=== PATIENT | female | born 1965 | race Caucasian/White ===

== ENCOUNTER 2020-10-24 09:01 | Outpatient (REF) | payer OTHER, SELFPAY ==
--- NOTE | ~2020-10-24 | XR_ITS ---
EXAMINATION: XR ELBOW, LEFT CLINICAL INFORMATION: Trauma COMPARISON: None TECHNIQUE: AP, lateral, and oblique views of the left elbow. FINDINGS: The bones and soft tissues are normal. No fracture or joint effusion. Alignment is anatomic. Joint spaces are maintained. XR/XR elbow LT min 3V IMPRESSION: Normal left elbow.
== END 2020-10-24 09:02 | disposition home or self-care (01) ==
LOC: HO.HMGCX 09:01
PROVIDERS: PCP Physician Assistant Medical; Visit Provider Nurse Practitioner Family
DX: S59.909A Unspecified injury of unspecified elbow, initial encounter (principal)
CPT/HCPCS: 73080

== ENCOUNTER 2021-04-18 09:59 | Emergency (ER) | payer OTHER, SELFPAY ==
--- NOTE | ~2021-04-18 | US_ITS ---
EXAMINATION: US VENOUS WITH DOPPLER UPPER EXTREMITY, RIGHT CLINICAL INFORMATION: Symptoms right upper extremity, right, warmth, painful. Assess for occult DVT. COMPARISON: None TECHNIQUE: Ultrasound of the upper extremity is performed using compression sonography and color and pulse Doppler flow with assessment of augmentation of flow. There is also imaging and Doppler assessment of the jugular and subclavian veins. Spectral analysis with color-flow imaging is performed. FINDINGS: Respiratory variation, normal compression, and augmented flow are noted throughout the upper extremity including the axillary, brachial, cubital, and radial and ulnar veins. There is normal flow in the internal jugular and subclavian veins. There is no visible deep or superficial thrombophlebitis. US/US venous duplex UE RT IMPRESSION: No DVT demonstrated in the right upper extremity.
[2021-04-18 10:09] VITALS: BP 127/59; PULSE 64; RESP 19; TEMP 36.6; O2SAT 100
--- NOTE | 2021-04-18 10:45 | ED.EXTPRO ---
HPI - Extremity Problem General Chief complaint: Extremity Injury, Upper Stated complaint: Possible blood clot Time Seen by Provider: 04/18/21 10:21 Source: patient Mode of arrival: ambulatory Limitations: no limitations History of Present Illness HPI Narrative: 55 y/o female presenting with RUE pain and ecchymosis that she noticed this morning. Three days ago she used her arm for several hours to paint and stain her deck at home. She was slightly sore after but nothing out of the ordinary. Later that night she reports her right upper arm under by her underarm was red and burning. It resolved by morning. Today she noticed some yellowing bruising to her right upper arm and tenderness. No current redness, warmth or swelling. No numbness, tingling or weakness. MD Complaint: extremity pain Onset (ago): day(s) Pain Consistency: intermittent Location: right and upper extremity Severity scale (1-10): 3 Quality: aching Radiation: none Relieving factors: immobilization Exacerbating factors: palpation Associated symptoms: denies other symptoms Related Data Home Medications Medication Instructions Recorded Confirmed colestipol 1 gram tablet g PO 10/24/20 hydrochlorothiazide 12.5 mg tablet 12.5 mg PO DAILY 10/24/20 levothyroxine 100 mcg tablet 100 mcg PO DAILY 10/24/20 omeprazole 40 mg capsule,delayed 40 mg PO DAILY 10/24/20 release propranolol 20 mg tablet mg PO 10/24/20 Previous Rx's Medication Instructions Recorded prednisone 20 mg tablet 20 mg PO DAILY 9 Days #18 tab 10/24/20 Allergies Allergy/AdvReac Type Severity Reaction Status Date / Time Unable to Assess Allergy Verified 04/18/21 10:35 Review of Systems Constitutional: Constitutional: Denies chills and Denies fever(s) Cardiovascular: Cardiovascular: Denies chest pain, Denies chest pain with activity, Denies lightheadedness and Denies dyspnea Respiratory: Respiratory: Denies pain on inspiration and Denies dyspnea Gastrointestinal: Gastrointestinal: Denies nausea and Denies vomiting Musculoskeletal: Musculoskeletal: Denies deformity, Denies arthralgias, Denies joint swelling, Denies muscle weakness, Denies numbness and Denies tingling Neurologic: Denies numbness and Denies tingling Hematologic/Lymphatic: Hematologic/Lymphatic: Denies easy bleeding and Denies easy bruising PMFSH Past Medical History Attestation statement: The following information was validated with the patient. Medical History Arthritis Fibromyalgia HTN (hypertension) Hypothyroid Social History Social History Advance Directives: No Advance Directives Information Provided: Yes Patient : No Physical Exam Vital Signs: Vital Signs: Last Vital Signs Temp 98 F 04/18/21 10:09 Pulse 64 04/18/21 10:09 Resp 19 04/18/21 10:09 BP 127/59 L 04/18/21 10:09 Pulse Ox 100 04/18/21 10:09 Body Mass Index 30.0 Appearance: Alert. Oriented X3. No acute distress. HEENT: normal inspection CVS: Normal heart rate and rhythm. Pulses normal. Respiratory: No respiratory distress. Skin: Skin warm and dry. Normal skin color. Normal skin turgor. No rashes. Extremities: right upper arm with medial aspect with slight bruising and tenderness proximally, no axillary LAD. no erythema, swelling, warmth of arm. Normal ROM of right shoulder and elbow. Normal 5/5 strength of upper extremities, equal and symmetrical Neuro: Oriented X 3. No motor deficit. No sensory deficit. Course Course Course Narrative: 55 y/o female presenting with right upper extremity bruising and tenderness after staining her deck 4 days ago. Reported transient swelling and burning now resolved. She is concerned for blood clot so U/S is ordered to rule this out. Her strength is equal and symmetrical doubt bicep tendon rupture. Reevaluation(s) Reevaluation #1: US is negative for DVT. Exam is reassuring without deficit or other skin changes other than some bruising. She is stable for discharge home with supportive care and outpatient follow up. Discharge Plan Discharge Clinical Impression: Upper extremity pain Qualifiers: Laterality: right Qualified Code(s): M79.601 - Pain in right arm Patient Disposition: Home, Self-Care Instructions: Arm Pain (ED) Additional Instructions: Your ultrasound did not show any blood clot. Rest your arm. Elevate when possible. Take Motrin and/or Tylenol as needed for pain. Follow up with your doctor as needed. If you develop increased pain, redness, swelling or any other concerning symptoms come back to the ER for further evaluation. Prescriptions: No Action levothyroxine 100 mcg tablet 100 mcg PO DAILY RF: 0 omeprazole 40 mg capsule,delayed release(DR/EC) 40 mg PO DAILY RF: 0 propranolol 20 mg tablet PO RF: 0 hydrochlorothiazide 12.5 mg tablet 12.5 mg PO DAILY RF: 0 colestipol 1 gram tablet PO RF: 0 prednisone 20 mg tablet 20 mg PO DAILY 9 Days Qty: 18 RF: 0
== END 2021-04-18 12:38 | disposition home or self-care (01) ==
PROVIDERS: Emergency Provider Emergency Medicine; PCP Physician Assistant Medical
DX: M79.601 Pain in right arm (principal); R60.0 Localized edema; I10 Essential (primary) hypertension; Z79.899 Other long term (current) drug therapy
CPT/HCPCS: 93971; 99283

== ENCOUNTER 2022-04-07 12:12 | Outpatient (REF) | payer OTHER, SELFPAY ==
[2022-04-07 12:40] LABS: Binax Now Covid-19 Ag Positive (Negative)
[2022-04-07 12:41] LABS: Binax Internal Control QC Valid; Binax Performed by: HO.BONILM
== END 2022-04-07 12:13 | disposition home or self-care (01) ==
LOC: HO.HMGCLDS 12:12
PROVIDERS: PCP Physician Assistant Medical; Visit Provider Physician Assistant
DX: Z20.822 Contact with and (suspected) exposure to COVID-19 (principal); J06.9 Acute upper respiratory infection, unspecified
CPT/HCPCS: 87811; C9803

== ENCOUNTER 2022-04-13 08:25 | Emergency (ER) | payer OTHER, SELFPAY ==
[2022-04-13 08:58] VITALS: BP 125/68; PULSE 67; RESP 18; TEMP 36.5; O2SAT 98; BMI 27.4
--- NOTE | 2022-04-13 09:51 | ED_ITS ---
HPI - Nausea/Vomiting/Diarrhea General Chief complaint: Nausea/Vomiting/Diarrhea Stated complaint: Covid+/Vomiting Time Seen by Provider: 04/13/22 09:29 Source: patient Mode of arrival: ambulatory Limitations: no limitations History of Present Illness HPI Narrative: 56-year-old female with a history of arthritis, fibromyalgia, HTN, hypothyroidism who presents to the ER for evaluation of almost a week and a half of vomiting and diarrhea in the setting of being positive for COVID-19. She states she was seen in urgent care where she was prescribed steroids, nausea medication and amoxicillin. She was also given prescription for Paxlovid which she completed. She reports she continues to vomit about 2 times per day, no relief from zofran but overall vomiting has improved. She also reports about 5 episodes of nonbloody stool each day. She feels weak and like she is going to pass out. She has been drinking pedialyte but her intake of food has been minimal. MD elicited complaint: vomiting and diarrhea Onset (ago): day(s) (10) Description of vomiting: food contents and bilious Description of diarrhea: watery Associated nausea: Yes Associated abdominal pain: No Location of pain: none Pain consistency: intermittent Severity: moderate Exacerbating factors: eating Relieving factors: none Associated symptoms: headaches, loss of appetite, malaise, nausea/vomiting and weakness Related Data Home Medications Medication Instructions Recorded Confirmed colestipol 1 gram tablet g PO 10/24/20 hydrochlorothiazide 12.5 mg tablet 12.5 mg PO DAILY 10/24/20 levothyroxine 100 mcg tablet 100 mcg PO DAILY 10/24/20 omeprazole 40 mg capsule,delayed 40 mg PO DAILY 10/24/20 release propranolol 20 mg tablet mg PO 10/24/20 Previous Rx's Medication Instructions Recorded prednisone 20 mg tablet 20 mg PO DAILY 9 days #18 tabs 10/24/20 albuterol sulfate 90 mcg/actuation 1 inh inhalation QID PRN shortness 01/21/22 aerosol inhaler of breath or wheezing #6.7 grams azithromycin 250 mg tablet See Rx Instructions PO .COMPLEX #6 01/21/22 tabs amoxicillin 875 mg-potassium 1 tab PO BID 10 days #20 tabs 04/07/22 clavulanate 125 mg tablet ondansetron 4 mg disintegrating 4 mg PO Q8-12H PRN nausea and 04/07/22 tablet vomiting #14 tabs prednisone 20 mg tablet 40 mg PO DAILY 5 days #10 tabs 04/07/22 loperamide 2 mg capsule (Imodium 2 mg PO Q6H PRN loose stool #14 04/13/22 A-D) caps prochlorperazine maleate 10 mg 10 mg PO Q8H PRN nausea and 04/13/22 tablet (Compazine) vomiting #10 tabs Allergies Allergy/AdvReac Type Severity Reaction Status Date / Time bees Allergy Mild Swelling Uncoded 04/07/22 11:54 Review of Systems Review of Systems: Constitutional: No Fever, + Chills ENT/Mouth: No sore throat, No Rhinorrhea, No Swallowing Difficulty Cardiovascular: No Chest Pain, No SOB, No Orthopnea, No Edema Respiratory: No Cough, No Sputum, No Wheezing, No dyspnea Gastrointestinal: +Nausea, +Vomiting, + Diarrhea, No abdominal Pain, No Hematochezia, No Melena Genitourinary: No Dysuria, No Urinary Frequency, No Hematuria Musculoskeletal: No joint pain, No Myalgias Skin: No Skin Lesions, No rash Neuro: + Weakness, No Numbness, No Dizziness, + Headache Psych: + Anxiety/Panic, No Depression Heme/Lymph: No Bruising, No Lymphadenopathy Endocrine: No Polyuria, No Polydipsia Gastrointestinal: Gastrointestinal: Reports nausea PMFSH Past Medical History Medical History Arthritis Fibromyalgia HTN (hypertension) Hypothyroid Social History Social History Patient Tobacco Use Status: Never used Tobacco Use of substances other than those prescribed or required for medical reasons: No Advance Directives: Yes Advance Directives Information Provided: Yes Advance Directives on File: No Physical Exam Vital Signs: Vital Signs: Last Vital Signs Temp 98.0 F 04/13/22 10:07 Pulse 58 04/13/22 10:07 Resp 18 04/13/22 10:07 BP 151/72 H 04/13/22 10:07 Pulse Ox 98 04/13/22 10:07 O2 Del Method 04/13/22 10:07 BMI result Body Mass Index 27.4 Appearance: Alert. Oriented X3. No acute distress. Eyes: Pupils equal, round and reactive to light. ENT: Pharynx normal. Moist mucus membranes Neck: Normal inspection. Neck supple. CVS: Normal heart rate and rhythm. Pulses normal. Respiratory: No respiratory distress. Breath sounds normal. Abdomen: Soft and nontender. +BS x4 Skin: Skin warm and dry. Normal skin color. Normal skin turgor. No rashes. Extremities: No lower extremity edema. Neuro: Oriented X 3. No motor deficit. No sensory deficit. Course Course Course Narrative: 56-year-old female with COVID-19 on 04/07 Presenting to the ER with persistent nausea, vomiting, diarrhea for the last 10 days. No abdominal pain. No respi ratory complaints. Will check basic lab workup to rule out metabolic derangements. IV fluids have been ordered as well as an antiemetic. Will reassess. Dispo pending result in improvement Reevaluation(s) Reevaluation #1: results show sodium 127, suspect hypovolemic hyponatremia. Patient getting 2 L of fluids now. No vomiting or diarrhea here. Her magnesium and potassium are within normal limits, as is her renal function Reevaluation #2: sodium improved to 131. She is tolerating p.o.. At this time patient is stable for discharge home. We discussed her results and need to continue to oral hydration at home with Pedialyte, Gatorade or Powerade. She has been tolerating p.o. here both crackers and nino brice. No vomiting. Will send home with a different antiemetic per her request. Will also start antidiarrheal. Stable for discharge home with outpatient follow-up and supportive care. MDM - Nausea/Vomiting/Diarrhea Lab Data Result diagrams: 04/13/22 10:05 04/13/22 12:24 Labs: Lab Results 04/13/22 04/13/22 04/13/22 Range/Units 10:05 10:05 10:05 WBC 9.6 (4.8-10.8) X10*3/uL RBC 5.23 (4.20-5.50) X10*6/uL Hgb 15.1 (12.0-16.0) g/dl Hct 43.4 (37.0-47.0) % MCV 83.0 (80.0-98.0) fL MCH 28.9 (27.0-33.0) pg MCHC 34.8 (31.0-35.0) g/dl RDW 12.2 (11.0-16.0) % Plt Count 324 (160-400) X10*3/uL MPV 10.4 (9.4-12.3) fL Immature Gran % (Auto) 0.7 H (0.0-0.4) % Neut % (Auto) 67.4 (45-73) % Lymph % (Auto) 23.3 (20-40) % [place] % (Auto) 7.7 (2-11) % Eos % (Auto) 0.5 (0-4) % Baso % (Auto) 0.4 (0-2) % Lymph # (Auto) 2.2 (1.2-4.9) X10*3/uL [place] # (Auto) 0.7 (0.1-1.2) X10*3/uL Eos # (Auto) 0.1 (0.0-0.4) X10*3/uL Baso # (Auto) 0.0 (0.0-0.2) X10*3/uL Abs Immat Gran (auto) 0.07 H (0.00-0.03) X10*3/uL Absolute Neuts (auto) 6.4 (2.0-8.3) x10*3/uL Absolute Nucleated RBC 0.000 (0.0-0.012) X10*3/uL Nucleated RBC % (auto) 0.0 (0.0-0.2) /100WBC Sodium 127 L (135-145) mmol/L Potassium 3.8 (3.3-5.1) mmol/L Chloride 86 L (96-108) mmol/L Carbon Dioxide 29 (22-29) mmol/L Anion Gap 16 (12-20) BUN 14 (9-16) mg/dL Creatinine 0.84 (0.5-1.4) mg/dL Estim Creat Clear Calc 72.1 Estimated GFR > 60 Random Glucose 109 (60-115) mg/dL Osmolality 264 L (281-305) mosm/kg Calcium 9.7 (8.4-10.2) mg/dL Magnesium 1.7 (1.6-2.6) mg/dL Total Bilirubin 0.7 (0.0-1.0) mg/dL Direct Bilirubin 0.2 (0.0-0.5) mg/dL AST 34 H (5-31) U/L ALT 78 H (0-31) U/L Alkaline Phosphatase 81 (39-117) U/L Total Protein 7.3 (6.5-8.0) g/dL Albumin 4.6 (3.5-5.0) g/dL 04/13/22 Range/Units 12:24 WBC (4.8-10.8) X10*3/uL RBC (4.20-5.50) X10*6/uL Hgb (12.0-16.0) g/dl Hct (37.0-47.0) % MCV (80.0-98.0) fL MCH (27.0-33.0) pg MCHC (31.0-35.0) g/dl RDW (11.0-16.0) % Plt Count (160-400) X10*3/uL MPV (9.4-12.3) fL Immature Gran % (Auto) (0.0-0.4) % Neut % (Auto) (45-73) % Lymph % (Auto) (20-40) % [place] % (Auto) (2-11) % Eos % (Auto) (0-4) % Baso % (Auto) (0-2) % Lymph # (Auto) (1.2-4.9) X10*3/uL [place] # (Auto) (0.1-1.2) X10*3/uL Eos # (Auto) (0.0-0.4) X10*3/uL Baso # (Auto) (0.0-0.2) X10*3/uL Abs Immat Gran (auto) (0.00-0.03) X10*3/uL Absolute Neuts (auto) (2.0-8.3) x10*3/uL Absolute Nucleated RBC (0.0-0.012) X10*3/uL Nucleated RBC % (auto) (0.0-0.2) /100WBC Sodium 131 L (135-145) mmol/L Potassium (3.3-5.1) mmol/L Chloride (96-108) mmol/L Carbon Dioxide (22-29) mmol/L Anion Gap (12-20) BUN (9-16) mg/dL Creatinine (0.5-1.4) mg/dL Estim Creat Clear Calc Estimated GFR Random Glucose (60-115) mg/dL Osmolality (281-305) mosm/kg Calcium (8.4-10.2) mg/dL Magnesium (1.6-2.6) mg/dL Total Bilirubin (0.0-1.0) mg/dL Direct Bilirubin (0.0-0.5) mg/dL AST (5-31) U/L ALT (0-31) U/L Alkaline Phosphatase (39-117) U/L Total Protein (6.5-8.0) g/dL Albumin (3.5-5.0) g/dL Discharge Plan Discharge Clinical Impression: Acute hyponatremia, Nausea, vomiting and diarrhea Patient Disposition: Home, Self-Care Instructions: Covid-19 Viral Syndrome and Novel Coronavirus (ED) Hey/Ath, Hyp onatremia (ED) Additional Instructions: Her lab workup today showed a low sodium. This improved with IV fluids. Recommend staying hydrated with oral Gatorade, Powerade or Pedialyte. Recommend chicken noodle soup, this will help bring up your sodium. Recommend getting your labs rechecked this week. Take the prescribed medications as needed for your symptoms. If you develop new or worsening symptoms call 911 or come back to the ER for further evaluation. Prescriptions: New prochlorperazine maleate [Compazine] 10 mg tablet 10 mg PO Q8H PRN (Reason: nausea and vomiting) Qty: 10 0RF loperamide [Imodium A-D] 2 mg capsule 2 mg PO Q6H PRN (Reason: loose stool) Qty: 14 0RF No Action levothyroxine 100 mcg tablet 100 mcg PO DAILY omeprazole 40 mg capsule,delayed release(DR/EC) 40 mg PO DAILY propranolol 20 mg tablet PO hydrochlorothiazide 12.5 mg tablet 12.5 mg PO DAILY colestipol 1 gram tablet PO prednisone 20 mg tablet 20 mg PO DAILY 9 Days Qty: 18 0RF Rx Instructions: 3 tabs/60mg for 3 days 2 tabs/40mg for 3 days 1 tab/20mg for 3 days azithromycin 250 mg tablet See Rx Instructions PO .COMPLEX Qty: 6 0RF Rx Instructions: take 500 mg today (day 1), then 250 mg for 4 days (days 2-5) PO albuterol sulfate 90 mcg/actuation HFA aerosol inhaler 1 inh inhalation QID PRN (Reason: shortness of breath or wheezing) Qty: 6.7 1RF amoxicillin-pot clavulanate 875-125 mg tablet 1 tab PO BID 10 Days Qty: 20 0RF prednisone 20 mg tablet 40 mg PO DAILY 5 Days Qty: 10 0RF ondansetron 4 mg tablet,disintegrating 4 mg PO Q8-12H PRN (Reason: nausea and vomiting) Qty: 14 0RF Referrals: Wilian Tsang PA [Primary Care Provider] - ( Hypovolemic hyponatremia, GI losses from COVID) Stand Alone Forms: Work/School Release
[2022-04-13 10:07] VITALS: BP 151/72; PULSE 58; RESP 18; TEMP 36.7; O2SAT 98
[2022-04-13] MEDS: 0.9 % Sodium Chloride 1,000 ML 999 ML IVCONT (10:07)
[2022-04-13] MEDS: ondansetron HCL 4 MG/2 ML VIAL IVPUSH (10:07)
[2022-04-13 10:14] LABS: Basophils Percent Auto 0.4 % (0-2); Eosinophils Absolute Auto 0.1 X10*3/uL (0.0-0.4); Eosinophils Percent Auto 0.5 % (0-4); Hematocrit 43.4 % (37.0-47.0); Hemoglobin 15.1 g/dl (12.0-16.0); Imm Gran Abs Auto 0.07 X10*3/uL (0.00-0.03); Imm Gran Pct Auto 0.7 % (0.0-0.4); Lymphocytes Absolute Auto 2.2 X10*3/uL (1.2-4.9); Lymphocytes Percent Auto 23.3 % (20-40); MANUAL DIFF FLAG NO; Mean Corpuscular HGB Conc 34.8 g/dl (31.0-35.0); Mean Corpuscular Hemoglobin 28.9 pg (27.0-33.0); Mean Platelet Volume 10.4 fL (9.4-12.3); Monocytes Absolute Auto 0.7 X10*3/uL (0.1-1.2); Monocytes Percent Auto 7.7 % (2-11); Neutrophils Absolute Auto 6.4 x10*3/uL (2.0-8.3); Neutrophils Percent Auto 67.4 % (45-73); Platelet Count 324 X10*3/uL (160-400); Red Blood Count 5.23 X10*6/uL (4.20-5.50); Red Cell Distribution Width 12.2 % (11.0-16.0); White Blood Count 9.6 X10*3/uL (4.8-10.8)
[2022-04-13 10:41] LABS: Alanine Aminotransferase 78 U/L (0-31); Albumin Level 4.6 g/dL (3.5-5.0); Alkaline Phosphatase 81 U/L (39-117); Anion Gap 16 (12-20); Aspartate Amino Transferase 34 U/L (5-31); Bilirubin Direct 0.2 mg/dL (0.0-0.5); Bilirubin Total 0.7 mg/dL (0.0-1.0); Blood Urea Nitrogen 14 mg/dL (9-16); Calcium 9.7 mg/dL (8.4-10.2); Carbon Dioxide 29 mmol/L (22-29); Chloride 86 mmol/L (96-108); Creatinine Clr Calc Pharmacy 72.1; Estimated Glomerular Filt Rate > 60; Glucose Random 109 mg/dL (60-115); Magnesium 1.7 mg/dL (1.6-2.6); Potassium 3.8 mmol/L (3.3-5.1); Sodium 127 mmol/L (135-145); Total Protein 7.3 g/dL (6.5-8.0)
[2022-04-13 11:28] LABS: Osmolality, Serum 264 mosm/kg (281-305)
[2022-04-13 12:44] LABS: Sodium 131 mmol/L (135-145)
== END 2022-04-13 13:43 | disposition home or self-care (01) ==
PROVIDERS: Physician Assistant; Emergency Provider Student in an Organized Health Care Education/Training Program; PCP Physician Assistant Medical
DX: U07.1 COVID-19 (principal); E87.1 Hypo-osmolality and hyponatremia; R11.2 Nausea with vomiting, unspecified; Z79.899 Other long term (current) drug therapy
CPT/HCPCS: 36415; 80048; 80076; 83735; 83930; 84295; 85025; 96374; 99284; J2405

== ENCOUNTER 2022-04-16 14:20 | Emergency (ER) | payer OTHER, SELFPAY | END 2022-04-16 17:08 | disposition left against medical advice (07) | PROVIDERS: Emergency Provider Emergency Medicine; PCP Physician Assistant Medical | DX: U07.1 COVID-19 (principal); E86.0 Dehydration ==

== ENCOUNTER 2022-04-17 08:02 | Emergency (ER) | payer OTHER, SELFPAY ==
--- NOTE | ~2022-04-17 | CT_ITS ---
EXAMINATION: CT ABDOMEN AND PELVIS WITHOUT CONTRAST CLINICAL INFORMATION: Left lower quadrant pain, back pain. COMPARISON: None TECHNIQUE: Multidetector volumetric imaging was performed from the superior aspect of the liver through the pubic symphysis. Sagittal and coronal reformatted images were obtained on the technologist's workstation. This CT examination was performed using dose optimization techniques as appropriate, variously including the following: *Automated exposure control *Adjustment of mA and/or kV according to patient size (this includes techniques or standardized protocols for targeted exams where dose is matched to indication/reason for exam; i.e. extremities or head) *Use of iterative reconstruction technique DLP: 583 mGy-cm FINDINGS: LUNG BASES: Normal. No pulmonary consolidation or pleural effusion at either lung base. LIVER: The liver has normal size, shape, and attenuation. No evidence of liver mass. GALLBLADDER AND BILIARY TREE: Gallbladder is surgically absent. No dilated bile ducts. PANCREAS: Normal. No edema, pancreatic ductal dilatation or mass. SPLEEN: Normal. ADRENAL GLANDS: Normal. KIDNEYS AND URETERS: The kidneys have normal size and cortical thickness. No perinephric edema. No urolithiasis or hydroureteronephrosis. BLADDER: Normal. No calculi or wall thickening. BOWEL AND PERITONEUM: Stomach is unremarkable. No dilated loops of bowel. The appendix is normal. Multiple diverticula of the descending and sigmoid colon. No overt bowel wall thickening or mesenteric fat stranding. No ascites or pneumoperitoneum. ABDOMINAL WALL: No significant findings. Minimal protrusion of fat into the umbilicus. VASCULATURE: Unremarkable. LYMPH NODES: No pathologic sized lymph nodes in the abdomen or pelvis. No inguinal lymphadenopathy. PELVIC VISCERA: Uterus and adnexa are unremarkable. No pelvic free fluid. SKELETAL: No suspicious bone lesions. Mild levoscoliosis of the lumbar spine. Findings in the lumbar spine include severe facet arthropathy and grade 1 anterolisthesis at L4-5 and L5-S1. CT/CT abdomen pelvis wo con IMPRESSION: * No acute imaging abnormalities in the abdomen or pelvis. No nephrolithiasis or hydronephrosis. * Diverticulosis of the descending and sigmoid colon without diverticulitis. * No acute skeletal abnormalities. Findings in the mildly levoscoliotic lumbar spine include facet osteoarthritis and grade 1 anterolisthesis at L4-5 and L5-S1.
[2022-04-17 08:04] VITALS: BP 166/67; PULSE 63; RESP 16; TEMP 36.3; O2SAT 97; BMI 27.4
[2022-04-17 08:21] LABS: Appearance Urine CLEAR; Color Urine YELLOW; Glucose Urine UA NEG (NEG); Leukocyte Esterase Urine NEG (NEG); Nitrite Urine NEG (NEG); Specific Gravity - Urine <= 1.005 (1.005-1.025); Urine Blood NEG (NEG); Urine Ketones NEG (NEG); Urine Protein NEG (NEG-TRACE)
--- NOTE | 2022-04-17 08:22 | ED_ITS ---
HPI - Female Genitourinary General Chief complaint: General Medical Stated complaint: UTI,Dehydrated Time Seen by Provider: 04/17/22 08:20 Source: patient Mode of arrival: ambulatory Limitations: no limitations Related Data Home Medications Medication Instructions Recorded Confirmed colestipol 1 gram tablet g PO 10/24/20 hydrochlorothiazide 12.5 mg tablet 12.5 mg PO DAILY 10/24/20 levothyroxine 100 mcg tablet 100 mcg PO DAILY 10/24/20 omeprazole 40 mg capsule,delayed 40 mg PO DAILY 10/24/20 release propranolol 20 mg tablet mg PO 10/24/20 Previous Rx's Medication Instructions Recorded prednisone 20 mg tablet 20 mg PO DAILY 9 days #18 tabs 10/24/20 albuterol sulfate 90 mcg/actuation 1 inh inhalation QID PRN shortness 01/21/22 aerosol inhaler of breath or wheezing #6.7 grams azithromycin 250 mg tablet See Rx Instructions PO .COMPLEX #6 01/21/22 tabs amoxicillin 875 mg-potassium 1 tab PO BID 10 days #20 tabs 04/07/22 clavulanate 125 mg tablet ondansetron 4 mg disintegrating 4 mg PO Q8-12H PRN nausea and 04/07/22 tablet vomiting #14 tabs prednisone 20 mg tablet 40 mg PO DAILY 5 days #10 tabs 04/07/22 loperamide 2 mg capsule (Imodium 2 mg PO Q6H PRN loose stool #14 04/13/22 A-D) caps prochlorperazine maleate 10 mg 10 mg PO Q8H PRN nausea and 04/13/22 tablet (Compazine) vomiting #10 tabs Allergies Allergy/AdvReac Type Severity Reaction Status Date / Time bees Allergy Mild Swelling Uncoded 04/07/22 11:54 [facility] Past Medical History Attestation statement: The following information was validated with the patient. Medical History Arthritis Fibromyalgia HTN (hypertension) Hypothyroid Social History Social History Patient Tobacco Use Status: Never used Tobacco Physical Exam Vital Signs: Vital Signs: Last Vital Signs Temp 97.3 F 04/17/22 08:04 Pulse 63 04/17/22 08:04 Resp 16 04/17/22 08:04 BP 166/67 H 08/04/22 08:04 Pulse Ox 97 04/17/22 08:04 O2 Del Method 04/17/22 08:04 BMI result Body Mass Index 27.4 MDM - Female Genitourinary Lab Data Labs: Lab Results 04/17/22 Range/Units 08:12 Urine Color YELLOW Urine Appearance CLEAR Urine pH 6.0 (5.0-8.0) Ur Specific [place] <= 1.005 (1.005-1.025) Urine Protein NEG (NEG-TRACE) MG/DL Urine Glucose (UA) NEG (NEG) MG/DL Urine Ketones NEG (NEG) MG/DL Urine Blood NEG (NEG) Urine Nitrite NEG (NEG) Ur Leukocyte Esterase NEG (NEG) Discharge Plan Discharge Prescriptions: No Action prochlorperazine maleate [Compazine] 10 mg tablet 10 mg PO Q8H PRN (Reason: nausea and vomiting) Qty: 10 0RF loperamide [Imodium A-D] 2 mg capsule 2 mg PO Q6H PRN (Reason: loose stool) Qty: 14 0RF levothyroxine 100 mcg tablet 100 mcg PO DAILY omeprazole 40 mg capsule,delayed release(DR/EC) 40 mg PO DAILY propranolol 20 mg tablet PO hydrochlorothiazide 12.5 mg tablet 12.5 mg PO DAILY colestipol 1 gram tablet PO prednisone 20 mg tablet 20 mg PO DAILY 9 Days Qty: 18 0RF Rx Instructions: 3 tabs/60mg for 3 days 2 tabs/40mg for 3 days 1 tab/20mg for 3 days azithromycin 250 mg tablet See Rx Instructions PO .COMPLEX Qty: 6 0RF Rx Instructions: take 500 mg today (day 1), then 250 mg for 4 days (days 2-5) PO albuterol sulfate 90 mcg/actuation HFA aerosol inhaler 1 inh inhalation QID PRN (Reason: shortness of breath or wheezing) Qty: 6.7 1RF amoxicillin-pot clavulanate 875-125 mg tablet 1 tab PO BID 10 Days Qty: 20 0RF prednisone 20 mg tablet 40 mg PO DAILY 5 Days Qty: 10 0RF ondansetron 4 mg tablet,disintegrating 4 mg PO Q8-12H PRN (Reason: nausea and vomiting) Qty: 14 0RF
--- NOTE | 2022-04-17 08:31 | ED_ITS ---
HPI - Back Pain/Injury General Chief Complaint: General Medical Stated Complaint: UTI,Dehydrated Time Seen by Provider: 04/17/22 08:20 Source: patient Mode of arrival: ambulatory Limitations: no limitations History of Present Illness HPI Narrative: 56 yo female with HTN, hypothyroidism, fibromyalgia s/p COVID 04/07 completed paxlovid seen here 04/13 Na 127. At this time she notes since Thursday she has had low back pain and cannot get comfortable denies trauma. Feels it is in the low back pain and that radiates to the abdomen. Has had back issues in the past. MD elicited complaint: back pain Pertinent past history: prior back pain Onset (ago): day(s) (5) Timing: constant and progressively worsening Severity: moderate Quality: aching and throbbing Location: lumbar spine Radiation: abdomen Exacerbating factors: movement and supine positioning Relieving factors: none Context: unknown Associated symptoms: other (abdominal pain) Work related injury: No Related Data Home Medications Medication Instructions Recorded Confirmed colestipol 1 gram tablet g PO 10/24/20 hydrochlorothiazide 12.5 mg tablet 12.5 mg PO DAILY 10/24/20 levothyroxine 100 mcg tablet 100 mcg PO DAILY 10/24/20 omeprazole 40 mg capsule,delayed 40 mg PO DAILY 10/24/20 release propranolol 20 mg tablet mg PO 10/24/20 Previous Rx's Medication Instructions Recorded prednisone 20 mg tablet 20 mg PO DAILY 9 days #18 tabs 10/24/20 albuterol sulfate 90 mcg/actuation 1 inh inhalation QID PRN shortness 01/21/22 aerosol inhaler of breath or wheezing #6.7 grams azithromycin 250 mg tablet See Rx Instructions PO .COMPLEX #6 01/21/22 tabs amoxicillin 875 mg-potassium 1 tab PO BID 10 days #20 tabs 04/07/22 clavulanate 125 mg tablet ondansetron 4 mg disintegrating 4 mg PO Q8-12H PRN nausea and 04/07/22 tablet vomiting #14 tabs prednisone 20 mg tablet 40 mg PO DAILY 5 days #10 tabs 04/07/22 loperamide 2 mg capsule (Imodium 2 mg PO Q6H PRN loose stool #14 04/13/22 A-D) caps prochlorperazine maleate 10 mg 10 mg PO Q8H PRN nausea and 04/13/22 tablet (Compazine) vomiting #10 tabs cyclobenzaprine 10 mg tablet 10 mg PO TID PRN muscle spasm #14 04/17/22 tabs lidocaine 5 % topical patch 1 patch topical DAILY #30 ea 04/17/22 Allergies Allergy/AdvReac Type Severity Reaction Status Date / Time bees Allergy Mild Swelling Uncoded 04/07/22 11:54 Review of Systems Review of Systems: Constitutional : No Weight loss, No Fever, No Chills ENT/Mouth : No sore throat, No Rhinorrhea Eyes: No Swelling, No Redness Cardiovascular : No Chest Pain, No SOB, NoEdema Respiratory : No Cough, No Sputum, No Wheezing Gastrointestinal : no Nausea, no Vomiting, no Diarrhea, positive abdominal Pain, No Hematochezia, No Melena Genitourinary : No Dysuria, No Urinary Frequency, No Hematuria, No Urgency Musculoskeletal : No joint pain, No Myalgias, No Joint Swelling, pos back pain Skin : No Skin Lesions, No rash Neuro : No Weakness, No Numbness, No Dizziness, No Headache Psych : No Anxiety/Panic, No Depression Heme/Lymph: No Bruising, No Lymphadenopathy Endocrine : No Polyuria, No Polydipsia All other systems reviewed and are negative. [facility] Past Medical History Attestation statement: The following information was validated with the patient. Medical History Arthritis Fibromyalgia HTN (hypertension) Hypothyroid Social History Social History Patient Tobacco Use Status: Never used Tobacco Use of substances other than those prescribed or required for medical reasons: No Advance Directives: No Advance Directives Information Provided: No Physical Exam Vital Signs: Vital Signs: Last Vital Signs Temp 97.3 F 04/17/22 08:04 Pulse 63 04/17/22 08:04 Resp 16 04/17/22 08:04 BP 166/67 H 04/17/22 08:04 Pulse Ox 97 04/17/22 08:04 O2 Del Method 04/17/22 08:04 BMI result Body Mass Index 27.4 Appearance: Alert. Oriented X3. No acute distress. Eyes: Pupils equal, round and reactive to light. ENT: Pharynx normal. Neck: Normal inspection. Neck supple. CVS: Normal heart rate and rhythm. Pulses normal. Respiratory: No respiratory distress. Breath sounds normal. Abdomen: Soft and mild ttp in LLQ no rebound or guarding Back: ttp along R lower lumbar ttp reproduces pain Skin: Skin warm and dry. Normal skin color. Normal skin turgor. Extremities: No lower extremity edema. No calf ttp Neuro: Oriented X 3. No motor deficit. No sensory deficit. Course Course Course Narrative: no acute findings, labs and UA stable CT scan no acute findings can be DC MDM - Back Pain/Injury MDM Narrative Medical decision making narrative: 56 yo female with hx of HTN, fibromyalgia here with c/o low back pain radiates to abdominal area at this time will obtain labs, UA, CT scan for renal colic/diverticulitis. She has no b/b incontinence/saddle anesthesia. Dispo per results and findings. Lab Data Result diagrams: 04/17/22 08:35 04/17/22 08:35 Labs: Lab Results 04/17/22 04/17/22 04/17/22 Range/Units 08:12 08:35 08:35 WBC 6.7 (4.8-10.8) X10*3/uL RBC 4.73 (4.20-5.50) X10*6/uL Hgb 13.6 (12.0-16.0) g/dl Hct 41.0 (37.0-47.0) % MCV 86.7 (80.0-98.0) fL MCH 28.8 (27.0-33.0) pg MCHC 33.2 (31.0-35.0) g/dl RDW 12.6 (11.0-16.0) % Plt Count 306 (160-400) X10*3/uL MPV 10.4 (9.4-12.3) fL Immature Gran % (Auto) 0.6 H (0.0-0.4) % Neut % (Auto) 58.2 (45-73) % Lymph % (Auto) 29.9 (20-40) % [place] % (Auto) 8.4 (2-11) % Eos % (Auto) 2.0 (0-4) % Baso % (Auto) 0.9 (0-2) % Lymph # (Auto) 2.0 (1.2-4.9) X10*3/uL [place] # (Auto) 0.6 (0.1-1.2) X10*3/uL Eos # (Auto) 0.1 (0.0-0.4) X10*3/uL Baso # (Auto) 0.1 (0.0-0.2) X10*3/uL Abs Immat Gran (auto) 0.04 H (0.00-0.03) X10*3/uL Absolute Neuts (auto) 3.9 (2.0-8.3) x10*3/uL Absolute Nucleated RBC 0.000 (0.0-0.012) X10*3/uL Nucleated RBC % (auto) 0.0 (0.0-0.2) /100WBC Sodium 141 (135-145) mmol/L Potassium 4.1 (3.3-5.1) mmol/L Chloride 101 (96-108) mmol/L Carbon Dioxide 29 (22-29) mmol/L Anion Gap 15 (12-20) BUN 9 (9-16) mg/dL Creatinine 0.77 (0.5-1.4) mg/dL Estim Creat Clear Calc 78.6 Estimated GFR > 60 Random Glucose 120 H (60-115) mg/dL Calcium 9.7 (8.4-10.2) mg/dL Magnesium 1.9 (1.6-2.6) mg/dL Total Bilirubin 0.4 (0.0-1.0) mg/dL Direct Bilirubin 0.2 (0.0-0.5) mg/dL AST 40 H (5-31) U/L ALT 145 H (0-31) U/L Alkaline Phosphatase 91 (39-117) U/L Total Protein 6.7 (6.5-8.0) g/dL Albumin 4.4 (3.5-5.0) g/dL Urine Color YELLOW Urine Appearance CLEAR Urine pH 6.0 (5.0-8.0) Ur Specific [place] <= 1.005 (1.005-1.025) Urine Protein NEG (NEG-TRACE) MG/DL Urine Glucose (UA) NEG (NEG) MG/DL Urine Ketones NEG (NEG) MG/DL Urine Blood NEG (NEG) Urine Nitrite NEG (NEG) Ur Leukocyte Esterase NEG (NEG) Discharge Plan Discharge Clinical Impression: Elevated liver enzymes Acute lumbar back pain Qualifiers: Back pain laterality: bilateral Sciatica presence: without sciatica Qualified Code(s): M54.50 - Low back pain, unspecified Patient Disposition: Home, Self-Care Instructions: Acute Low Back Pain (ED) Additional Instructions: return to ED for any worsening symptoms or concerns liver enzymes mildly elevated - repeat in 5 days with primary care doctor CT/CT abdomen pelvis wo con IMPRESSION: *? No acute imaging abnormalities in the abdomen or pelvis. No nephrolithiasis or hydronephrosis. *? Diverticulosis of the descending and sigmoid colon without diverticulitis. *? No acute skeletal abnormalities. Findings in the mildly levoscoliotic lumbar spine include facet osteoarthritis and grade 1 anterolisthesis at L4-5 and L5-S1. Prescriptions: New cyclobenzaprine 10 mg tablet 10 mg PO TID PRN (Reason: muscle spasm) Qty: 14 0RF lidocaine 5 % adhesive patch,medicated 1 patch topical DAILY Qty: 30 0RF Rx Instructions: leave on most painful area for up to 12 hrs No Action prochlorperazine maleate [Compazine] 10 mg tablet 10 mg PO Q8H PRN (Reason: nausea and vomiting) Qty: 10 0RF loperamide [Imodium A-D] 2 mg capsule 2 mg PO Q6H PRN (Reason: loose stool) Qty: 14 0RF levothyroxine 100 mcg tablet 100 mcg PO DAILY omeprazole 40 mg capsule,delayed release(DR/EC) 40 mg PO DAILY propranolol 20 mg tablet PO hydrochlorothiazide 12.5 mg tablet 12.5 mg PO DAILY colestipol 1 gram tablet PO prednisone 20 mg tablet 20 mg PO DAILY 9 Days Qty: 18 0RF Rx Instructions: 3 tabs/60mg for 3 days 2 tabs/40mg for 3 days 1 tab/20mg for 3 days azithromycin 250 mg tablet See Rx Instructions PO .COMPLEX Qty: 6 0RF Rx Instructions: take 500 mg today (day 1), then 250 mg for 4 days (days 2-5) PO albuterol sulfate 90 mcg/actuation HFA aerosol inhaler 1 inh inhalation QID PRN (Reason: shortness of breath or wheezing) Qty: 6.7 1RF amoxicillin-pot clavulanate 875-125 mg tablet 1 tab PO BID 10 Days Qty: 20 0RF prednisone 20 mg tablet 40 mg PO DAILY 5 Days Qty: 10 0RF ondansetron 4 mg tablet,disintegrating 4 mg PO Q8-12H PRN (Reason: nausea and vomiting) Qty: 14 0RF Referrals: Wilian Tsang PA [Primary Care Provider] - 5 days Stand Alone Forms: Work/School Release
[2022-04-17 08:42] LABS: MANUAL DIFF FLAG NO
[2022-04-17 08:43] LABS: Basophils Absolute Auto 0.1 X10*3/uL (0.0-0.2); Basophils Percent Auto 0.9 % (0-2); Eosinophils Absolute Auto 0.1 X10*3/uL (0.0-0.4); Hemoglobin 13.6 g/dl (12.0-16.0); Imm Gran Abs Auto 0.04 X10*3/uL (0.00-0.03); Imm Gran Pct Auto 0.6 % (0.0-0.4); Lymphocytes Percent Auto 29.9 % (20-40); Mean Corpuscular HGB Conc 33.2 g/dl (31.0-35.0); Mean Corpuscular Hemoglobin 28.8 pg (27.0-33.0); Mean Corpuscular Volume 86.7 fL (80.0-98.0); Mean Platelet Volume 10.4 fL (9.4-12.3); Monocytes Absolute Auto 0.6 X10*3/uL (0.1-1.2); Monocytes Percent Auto 8.4 % (2-11); Neutrophils Absolute Auto 3.9 x10*3/uL (2.0-8.3); Neutrophils Percent Auto 58.2 % (45-73); Platelet Count 306 X10*3/uL (160-400); Red Blood Count 4.73 X10*6/uL (4.20-5.50); Red Cell Distribution Width 12.6 % (11.0-16.0); White Blood Count 6.7 X10*3/uL (4.8-10.8)
[2022-04-17 09:03] LABS: Alanine Aminotransferase 145 U/L (0-31); Albumin Level 4.4 g/dL (3.5-5.0); Alkaline Phosphatase 91 U/L (39-117); Anion Gap 15 (12-20); Aspartate Amino Transferase 40 U/L (5-31); Bilirubin Direct 0.2 mg/dL (0.0-0.5); Bilirubin Total 0.4 mg/dL (0.0-1.0); Blood Urea Nitrogen 9 mg/dL (9-16); Calcium 9.7 mg/dL (8.4-10.2); Carbon Dioxide 29 mmol/L (22-29); Chloride 101 mmol/L (96-108); Creatinine Clr Calc Pharmacy 78.6; Estimated Glomerular Filt Rate > 60; Glucose Random 120 mg/dL (60-115); Magnesium 1.9 mg/dL (1.6-2.6); Potassium 4.1 mmol/L (3.3-5.1); Sodium 141 mmol/L (135-145); Total Protein 6.7 g/dL (6.5-8.0)
[2022-04-17 09:59] VITALS: BP 141/66; PULSE 56; RESP 17; TEMP 36.8; O2SAT 97
[2022-04-17] MEDS: Ketorolac Tromethamine 60 MG/2 ML VIAL IM (10:15)
== END 2022-04-17 10:43 | disposition home or self-care (01) ==
PROVIDERS: Emergency Provider Emergency Medicine; PCP Physician Assistant Medical
DX: M54.50 Low back pain, unspecified (principal); R74.8 Abnormal levels of other serum enzymes; I10 Essential (primary) hypertension
CPT/HCPCS: 36415; 74176; 80048; 80076; 81003; 83735; 85025; 96372; 99284; J1885

== ENCOUNTER 2022-12-04 11:34 | Emergency (ER) | payer OTHER, SELFPAY ==
--- NOTE | ~2022-12-04 | CT_ITS ---
EXAMINATION: CT ABDOMEN AND PELVIS WITHOUT CONTRAST CLINICAL INFORMATION: Abdominal pain. Question sigmoid diverticulitis COMPARISON: CT abdomen pelvis without contrast 04/17/2022 TECHNIQUE: Multidetector volumetric imaging was performed from the superior aspect of the liver through the pubic symphysis. Sagittal and coronal reformatted images were obtained on the technologist's workstation. This CT examination was performed using dose optimization techniques as appropriate, variously including the following: *Automated exposure control *Adjustment of mA and/or kV according to patient size (this includes techniques or standardized protocols for targeted exams where dose is matched to indication/reason for exam; i.e. extremities or head) *Use of iterative reconstruction technique DLP: 589 mGy-cm FINDINGS: LUNG BASES: Minimal atelectatic changes seen left lung base lateral segment. The heart size is normal. LIVER, GALLBLADDER, AND BILIARY TREE: The liver is normal in size, shape, and attenuation. No focal hepatic lesion or biliary ductal dilatation is present. The gallbladder has been surgically removed. PANCREAS: Unremarkable. SPLEEN: Unremarkable. ADRENAL GLANDS: Unremarkable. KIDNEYS AND URETERS: The kidneys are normal in size, shape, and attenuation. No hydronephrosis, hydroureter, or calculi seen. No perinephric stranding. BLADDER: Unremarkable. GASTROINTESTINAL TRACT: There is diffuse colonic diverticulosis most prominent in the sigmoid colon with mild mural thickening with minimal pericolic fat stranding suggestive of diverticulitis. There is no fluid collection no free air. Rest of the colon and the small bowel loops are normal. Appendix is normal.. ABDOMINAL WALL: No significant hernia is appreciated. LYMPH NODES: Normal. VASCULAR: Unremarkable. PELVIC VISCERA: The uterus is anteverted and appears unremarkable. OSSEOUS STRUCTURES: No aggressive lytic or sclerotic process seen. Grade 1 anterolisthesis L4 over L5. There is L3-L4 disc calcification. CT/CT abdomen pelvis wo IV con IMPRESSION: Diffuse colonic diverticulosis with sigmoid diverticulitis. No free air, fluid collection or obstruction seen. Mild constipation. Fleischner guidelines were followed.
[2022-12-04 11:49] VITALS: BP 159/74; PULSE 68; RESP 16; TEMP 36.9; O2SAT 97; BMI 28.3
--- NOTE | 2022-12-04 11:51 | ED.GENADULT ---
HPI - General Adult General Chief complaint: Abdominal Pain <Luis Noyola - Last Filed: 12/04/22 11:53> Stated complaint: Abd pain/Diverticulitis? <Luis Noyola - Last Filed: 12/04/22 11:53> Time Seen by Provider: 12/04/22 16:55 <Luis Noyola - Last Filed: 12/04/22 11:53> Source: patient <Kirsten Colunga MD - Last Filed: 12/04/22 17:22> Mode of arrival: ambulatory <Kirsten Colunga MD - Last Filed: 12/04/22 17:22> Limitations: no limitations <Kirsten Colunga MD - Last Filed: 12/04/22 17:22> History of Present Illness HPI narrative: 57-year-old female came in for evaluation of left lower quadrant abdominal pain. Patient lives with chronic abdominal pain require colonoscopy 7 weeks ago, patient been having more abdominal pain mostly to the left lower quadrant area that is becoming more severe and more constant over the past 2 weeks, patient today had severe left lower quadrant abdominal pain while she was at work decided to come to the hospital for further evaluation. Patient had a history of diverticular disease. Past surgical history is significant for cholecystectomy. Patient decline fever, chills, nausea, or vomiting. <Kirsten Colunga MD - Last Filed: 12/04/22 17:22> Related Data Home medications: Home Medications Medication Instructions Recorded Confirmed colestipol 1 gram tablet g PO 10/24/20 hydrochlorothiazide 12.5 mg tablet 12.5 mg PO DAILY 10/24/20 levothyroxine 100 mcg tablet 100 mcg PO DAILY 10/24/20 omeprazole 40 mg capsule,delayed 40 mg PO DAILY 10/24/20 release propranolol 20 mg tablet mg PO 10/24/20 Previous Rx's Medication Instructions Recorded prednisone 20 mg tablet 20 mg PO DAILY 9 days #18 tabs 10/24/20 albuterol sulfate 90 mcg/actuation 1 inh inhalation QID PRN shortness 01/21/22 aerosol inhaler of breath or wheezing #6.7 grams azithromycin 250 mg tablet See Rx Instructions PO .COMPLEX #6 01/21/22 tabs amoxicillin 875 mg-potassium 1 tab PO BID 10 days #20 tabs 04/07/22 clavulanate 125 mg tablet ondansetron 4 mg disintegrating 4 mg PO Q8-12H PRN nausea and 04/07/22 tablet vomiting #14 tabs prednisone 20 mg tablet 40 mg PO DAILY 5 days #10 tabs 04/07/22 loperamide 2 mg capsule (Imodium 2 mg PO Q6H PRN loose stool #14 04/13/22 A-D) caps prochlorperazine maleate 10 mg 10 mg PO Q8H PRN nausea and 04/13/22 tablet (Compazine) vomiting #10 tabs cyclobenzaprine 10 mg tablet 10 mg PO TID PRN muscle spasm #14 04/17/22 tabs lidocaine 5 % topical patch 1 patch topical DAILY #30 ea 04/17/22 ciprofloxacin HCl 500 mg tablet 500 mg PO BID #14 tabs 12/04/22 (Cipro) metronidazole 500 mg tablet 500 mg PO BID 7 days #14 tabs 12/04/22 <Luis Noyola - Last Filed: 12/04/22 11:53> Allergies/adverse reactions: Allergies Allergy/AdvReac Type Severity Reaction Status Date / Time bees Allergy Mild Swelling Uncoded 04/07/22 11:54 <Luis Noyola - Last Filed: 12/04/22 11:53> Review of Systems Review of Systems: All other systems are reviewed and are negative Constitutional: Reports as per HPI and Reports no additional constitutional complaints Eyes: Reports as per HPI and Reports no additional eye complaints Reports system reviewed and no additional complaints, except as documented Cardiovascular: Reports as per HPI and Reports no additional cardiovascular complaints Respiratory: Reports as per HPI and Reports no additional respiratory complaints Gastrointestinal: Reports as per HPI and Reports no additional gastrointestinal complaints Genitourinary: Reports no additional female genitourinary complaints Musculoskeletal: Reports no additional musculoskeletal complaints Skin/Breast: Reports system reviewed and no additional complaints, except as docu Psychiatric: Reports no additional psychiatric complaints Endocrine: Reports no additional endocrine complaints Hematologic/Lymphatic: Reports no additional hematologic/lymphatic complaints Allergic/Immunologic: Reports no additional allergic/immunologic complaints Reports system reviewed and no additional complaints, except as documented and Reports Abnormal speech present <Kirsten Colunga MD - Last Filed: 12/04/22 17:22> [facility] Past Medical History Medical History: Medical History Arthritis Fibromyalgia HTN (hypertension) Hypothyroid <Luis Noyola - Last Filed: 12/04/22 11:53> Social History Social History: Social History Patient Tobacco Use Status: Never used Tobacco Advance Directives: No Advance Directives Information Provided: Yes <Luis Noyola - Last Filed: 12/04/22 11:53> Physical Exam ED Vital Signs: Vital Signs - 24 hr 12/04/22 11:49 Temperature 98.5 F Pulse Rate 68 Respiratory Rate 16 Blood Pressure 159/74 H Pulse Oximetry 97 Oxygen Delivery Method Room Air BMI result Body Mass Index 28.3 <Lius Noyola - Last Filed: 12/04/22 11:53> Vital Signs - 24 hr 12/04/22 11:49 Temperature 98.5 F Pulse Rate 68 Respiratory Rate 16 Blood Pressure 159/74 H Pulse Oximetry 97 Oxygen Delivery Method Room Air BMI result Body Mass Index 28.3 Vital signs have been reviewed as appeared to be correct. Blood pressure normal. Heart rate normal. Respiration rate normal. Temperature normal. Oxygen saturation normal. <Kirsten Colunga MD - Last Filed: 12/04/22 17:22> Appearance: Alert. Oriented X3. No acute distress. Head: Normal external exam. Normocephalic. Atraumatic. No Diane signs noted. No raccoon eyes noted Eyes: PERRLA. EOMI. Conjunctiva and sclera normal. Eyelids normal. ENT: TM's Normal. Pharynx normal. Uvula midline. Moist mucous membranes. No trismus noted. No drooling noted. No muffled voice noted. Neck: Normal inspection. Neck supple. FROM. No adenopathy. Thyroid Normal. No meningeal signs. No neck mass noted. CVS: Normal heart rate and rhythm. Heart sound normal. No murmurs noted. Pulses normal throughout. Respiratory: No respiratory distress. Painless inspiration. Breath sounds normal. No wheezes/rales/rhonchi noted. Chest nontender. No accessory muscle usage noted or decreased air movement noted. Abdomen: Soft, left lower quadrant tenderness, no rebound tenderness, no guarding. Bowel sounds normal in all 4 quadrants. No distention noted. No organomegaly noted. No visible injury noted. Back: No CVA tenderness. Full range of motion noted. Skin: Skin warm and dry. Normal skin color. Normal skin turgor. No rashes/lesions/lacerations noted. Extremities: No lower extremity edema. Extremities exhibit normal range of motion. Extremities nontender. Neuro: Oriented X 3. Cranial nerve exam: II-XII are grossly intact No motor deficit. No sensory deficit. Reflexes normal. <Kirsten Colunga MD - Last Filed: 12/04/22 17:22> Course Course Course Narrative: 57-year-old female presents for evaluation of left lower abdominal pain that is radiating to right lower abdomen. Symptoms have been on and off since her colonoscopy in September but consistent for the last week or 2. Plan for labs, CT imaging and a UA <Luis Noyola - Last Filed: 12/04/22 11:53> Reevaluation(s) Reevaluation #1: 57-year-old female came in for evaluation of acute on chronic abdominal pain with recent history of colonoscopy. CT showed noncomplicated sigmoid diverticulitis. Since physical exam is not suggesting acute abdomen will treat the patient as an outpatient with Cipro and Flagyl. Slight elevation of lipase, status post cholecystectomy patient declined using alcohol excessively only drink 1 wine a week. Patient was instructed to drink plenty of fluids and avoid drinking alcohol or eating greasy fatty foods. <Kirsten Colunga MD - Last Filed: 12/04/22 17:22> Medical Decision Making Differential Diagnosis Differential Diagnoses: The differential diagnosis associated with the presentation includes (Diverticular disease, perforated viscus, intra-abdominal abscess, kidney stone, with kidney infection, complicated hernia.) <Kirsten Colunga MD - Last Filed: 12/04/22 17:22> Lab Data MDM Lab Attestation statement: I reviewed the patient's lab results. <Kisrten Colunga MD - Last Filed: 12/04/22 17:22> Result Diagrams: 12/04/22 11:58 12/04/22 11:58 <Luis Noyola - Last Filed: 12/04/22 11:53> Labs: Lab Results 12/04/22 12/04/22 12/04/22 Range/Units 11:58 11:58 11:58 WBC 8.2 (4.8-10.8) X10*3/uL RBC 4.60 (4.20-5.50) X10*6/uL Hgb 13.3 (12.0-16.0) g/dl Hct 40.6 (37.0-47.0) % MCV 88.3 (80.0-98.0) fL MCH 28.9 (27.0-33.0) pg MCHC 32.8 (31.0-35.0) g/dl RDW 12.9 (11.0-16.0) % Plt Count 277 (160-400) X10*3/uL MPV 10.6 (9.4-12.3) fL Immature Gran % (Auto) 0.2 (0.0-0.4) % Neut % (Auto) 67.4 (45-73) % Lymph % (Auto) 22.5 (20-40) % Morrison % (Auto) 7.2 (2-11) % Eos % (Auto) 2.0 (0-4) % Baso % (Auto) 0.7 (0-2) % Lymph # (Auto) 1.8 (1.2-4.9) X10*3/uL [place] # (Auto) 0.6 (0.1-1.2) X10*3/uL Eos # (Auto) 0.2 (0.0-0.4) X10*3/uL Baso # (Auto) 0.1 (0.0-0.2) X10*3/uL Abs Immat Gran (auto) 0.02 (0.00-0.03) X10*3/uL Absolute Neuts (auto) 5.5 (2.0-8.3) x10*3/uL Absolute Nucleated RBC 0.000 (0.0-0.012) X10*3/uL Nucleated RBC % (auto) 0.0 (0.0-0.2) /100WBC Sodium 142 (135-145) mmol/L Potassium 3.7 (3.3-5.1) mmol/L Chloride 103 (96-108) mmol/L Carbon Dioxide 30 H (22-29) mmol/L Anion Gap 13 (12-20) BUN 14 (9-16) mg/dL Creatinine 0.74 (0.5-1.4) mg/dL Estim Creat Clear Calc 82.0 Estimated GFR > 60 Random Glucose 99 (60-115) mg/dL Calcium 9.5 (8.4-10.2) mg/dL Total Bilirubin 0.4 (0.0-1.0) mg/dL AST 22 (5-31) U/L ALT 29 (0-31) U/L Alkaline Phosphatase 83 (39-117) U/L Total Protein 6.8 (6.5-8.0) g/dL Albumin 4.5 (3.5-5.0) g/dL Lipase 79 H (8-78) U/L Urine Color Yellow Urine Appearance Clear Urine pH 6.5 (5.0-9.0) Ur Specific [place] <= 1.005 (1.005-1.025) Urine Protein Negative (Neg-Trace) mg/dL Urine Glucose (UA) Negative (Negative) mg/dL Urine Ketones Negative (Negative) mg/dL Urine Blood Negative (Negative) Urine Nitrite Negative (Negative) Ur Leukocyte Esterase Negative (Negative) Urine RBC 0-2 (0-2) /HPF Urine WBC 0-5 (0-5) /HPF Ur Squamous Epith Cells 0-2 (0-2) /HPF Urine Bacteria None Seen (None Seen) Hyaline Casts 0-2 (0-2) /LPF <Luis Noyola - Last Filed: 12/04/22 11:53> Lab Results 12/04/22 12/04/22 12/04/22 Range/Units 11:58 11:58 11:58 WBC 8.2 (4.8-10.8) X10*3/uL RBC 4.60 (4.20-5.50) X10*6/uL Hgb 13.3 (12.0-16.0) g/dl Hct 40.6 (37.0-47.0) % MCV 88.3 (80.0-98.0) fL MCH 28.9 (27.0-33.0) pg MCHC 32.8 (31.0-35.0) g/dl RDW 12.9 (11.0-16.0) % Plt Count 277 (160-400) X10*3/uL MPV 10.6 (9.4-12.3) fL Immature Gran % (Auto) 0.2 (0.0-0.4) % Neut % (Auto) 67.4 (45-73) % Lymph % (Auto) 22.5 (20-40) % Morrison % (Auto) 7.2 (2-11) % Eos % (Auto) 2.0 (0-4) % Baso % (Auto) 0.7 (0-2) % Lymph # (Auto) 1.8 (1.2-4.9) X10*3/uL [place] # (Auto) 0.6 (0.1-1.2) X10*3/uL Eos # (Auto) 0.2 (0.0-0.4) X10*3/uL Baso # (Auto) 0.1 (0.0-0.2) X10*3/uL Abs Immat Gran (auto) 0.02 (0.00-0.03) X10*3/uL Absolute Neuts (auto) 5.5 (2.0-8.3) x10*3/uL Absolute Nucleated RBC 0.000 (0.0-0.012) X10*3/uL Nucleated RBC % (auto) 0.0 (0.0-0.2) /100WBC Sodium 142 (135-145) mmol/L Potassium 3.7 (3.3-5.1) mmol/L Chloride 103 (96-108) mmol/L Carbon Dioxide 30 H (22-29) mmol/L Anion Gap 13 (12-20) BUN 14 (9-16) mg/dL Creatinine 0.74 (0.5-1.4) mg/dL Estim Creat Clear Calc 82.0 Estimated GFR > 60 Random Glucose 99 (60-115) mg/dL Calcium 9.5 (8.4-10.2) mg/dL Total Bilirubin 0.4 (0.0-1.0) mg/dL AST 22 (5-31) U/L ALT 29 (0-31) U/L Alkaline Phosphatase 83 (39-117) U/L Total Protein 6.8 (6.5-8.0) g/dL Albumin 4.5 (3.5-5.0) g/dL Lipase 79 H (8-78) U/L Urine Color Yellow Urine Appearance Clear Urine pH 6.5 (5.0-9.0) Ur Specific [place] <= 1.005 (1.005-1.025) Urine Protein Negative (Neg-Trace) mg/dL Urine Glucose (UA) Negative (Negative) mg/dL Urine Ketones Negative (Negative) mg/dL Urine Blood Negative (Negative) Urine Nitrite Negative (Negative) Ur Leukocyte Esterase Negative (Negative) Urine RBC 0-2 (0-2) /HPF Urine WBC 0-5 (0-5) /HPF Ur Squamous Epith Cells 0-2 (0-2) /HPF Urine Bacteria None Seen (None Seen) Hyaline Casts 0-2 (0-2) /LPF <Kirsten Colunga MD - Last Filed: 12/04/22 17:22> Independent Interpretation I performed an independent interpretation of an: CT Scan (For abdomen and pelvis: Acute sigmoid diverticulitis) <Kirsten Colunga MD - Last Filed: 12/04/22 17:22> Radiology Impression Discussion of test interpretation with radiology: I have reviewed the radiologist's reading. (Diffuse colonic diverticulosis with sigmoid diverticulitis. No free air, fluid collection or obstruction seen. Mild constipation. ) <Kirsten Colunga MD - Last Filed: 12/04/22 17:22> Discharge Plan Discharge Clinical Impression: Diverticulitis, Pancreatitis <Luis Noyola - Last Filed: 12/04/22 11:53> Patient Disposition: Home, Self-Care <Luis Noyola - Last Filed: 12/04/22 11:53> Instructions: Pancreatitis (ED), Diverticulitis (ED) <Luis Noyola - Last Filed: 12/04/22 11:53> Additional Instructions: Seek emergent medical attention if pain is worse or develop any new symptoms. <Luis Noyola - Last Filed: 12/04/22 11:53> Prescriptions: New ciprofloxacin HCl [Cipro] 500 mg tablet 500 mg PO BID Qty: 14 0RF metronidazole 500 mg tablet 500 mg PO BID 7 Days Qty: 14 0RF No Action prochlorperazine maleate [Compazine] 10 mg tablet 10 mg PO Q8H PRN (Reason: nausea and vomiting) Qty: 10 0RF loperamide [Imodium A-D] 2 mg capsule 2 mg PO Q6H PRN (Reason: loose stool) Qty: 14 0RF cyclobenzaprine 10 mg tablet 10 mg PO TID PRN (Reason: muscle spasm) Qty: 14 0RF lidocaine 5 % adhesive patch,medicated 1 patch topical DAILY Qty: 30 0RF Rx Instructions: leave on most painful area for up to 12 hrs levothyroxine 100 mcg tablet 100 mcg PO DAILY omeprazole 40 mg capsule,delayed release(DR/EC) 40 mg PO DAILY propranolol 20 mg tablet PO hydrochlorothiazide 12.5 mg tablet 12.5 mg PO DAILY colestipol 1 gram tablet PO prednisone 20 mg tablet 20 mg PO DAILY 9 Days Qty: 18 0RF Rx Instructions: 3 tabs/60mg for 3 days 2 tabs/40mg for 3 days 1 tab/20mg for 3 days azithromycin 250 mg tablet See Rx Instructions PO .COMPLEX Qty: 6 0RF Rx Instructions: take 500 mg today (day 1), then 250 mg for 4 days (days 2-5) PO albuterol sulfate 90 mcg/actuation HFA aerosol inhaler 1 inh inhalation QID PRN (Reason: shortness of breath or wheezing) Qty: 6.7 1RF amoxicillin-pot clavulanate 875-125 mg tablet 1 tab PO BID 10 Days Qty: 20 0RF prednisone 20 mg tablet 40 mg PO DAILY 5 Days Qty: 10 0RF ondansetron 4 mg tablet,disintegrating 4 mg PO Q8-12H PRN (Reason: nausea and vomiting) Qty: 14 0RF <Luis Noyola - Last Filed: 12/04/22 11:53> Referrals: Louise Garrison MD [Physician] - Wilian Tsang PA [Primary Care Provider] - <Luis Noyola - Last Filed: 12/04/22 11:53> Stand Alone Forms: Work/School Release <Luis Noyola - Last Filed: 12/04/22 11:53>
[2022-12-04 12:02] LABS: MANUAL DIFF FLAG NO
[2022-12-04 12:04] LABS: Basophils Absolute Auto 0.1 X10*3/uL (0.0-0.2); Basophils Percent Auto 0.7 % (0-2); Eosinophils Absolute Auto 0.2 X10*3/uL (0.0-0.4); Hematocrit 40.6 % (37.0-47.0); Hemoglobin 13.3 g/dl (12.0-16.0); Imm Gran Abs Auto 0.02 X10*3/uL (0.00-0.03); Imm Gran Pct Auto 0.2 % (0.0-0.4); Lymphocytes Absolute Auto 1.8 X10*3/uL (1.2-4.9); Lymphocytes Percent Auto 22.5 % (20-40); Mean Corpuscular HGB Conc 32.8 g/dl (31.0-35.0); Mean Corpuscular Hemoglobin 28.9 pg (27.0-33.0); Mean Corpuscular Volume 88.3 fL (80.0-98.0); Mean Platelet Volume 10.6 fL (9.4-12.3); Monocytes Absolute Auto 0.6 X10*3/uL (0.1-1.2); Monocytes Percent Auto 7.2 % (2-11); Neutrophils Absolute Auto 5.5 x10*3/uL (2.0-8.3); Neutrophils Percent Auto 67.4 % (45-73); Platelet Count 277 X10*3/uL (160-400); Red Cell Distribution Width 12.9 % (11.0-16.0); White Blood Count 8.2 X10*3/uL (4.8-10.8)
[2022-12-04 12:17] LABS: Alanine Aminotransferase 29 U/L (0-31); Albumin Level 4.5 g/dL (3.5-5.0); Alkaline Phosphatase 83 U/L (39-117); Anion Gap 13 (12-20); Aspartate Amino Transferase 22 U/L (5-31); Bilirubin Total 0.4 mg/dL (0.0-1.0); Blood Urea Nitrogen 14 mg/dL (9-16); Calcium 9.5 mg/dL (8.4-10.2); Carbon Dioxide 30 mmol/L (22-29); Chloride 103 mmol/L (96-108); Estimated Glomerular Filt Rate > 60; Glucose Random 99 mg/dL (60-115); Potassium 3.7 mmol/L (3.3-5.1); Sodium 142 mmol/L (135-145); Total Protein 6.8 g/dL (6.5-8.0)
[2022-12-04 12:18] LABS: Appearance Urine Clear; Color Urine Yellow; Glucose Urine UA Negative (Negative); Leukocyte Esterase Urine Negative (Negative); Nitrite Urine Negative (Negative); PH 6.5 (5.0-9.0); Specific Gravity - Urine <= 1.005 (1.005-1.025); Urine Blood Negative (Negative); Urine Ketones Negative (Negative); Urine Protein Negative (Neg-Trace)
[2022-12-04 12:19] LABS: Lipase 79 U/L (8-78)
[2022-12-04 12:23] LABS: Bacteria Urine None Seen (None Seen); Hyaline Casts Urine 0-2 /LPF (0-2); RBC Urine 0-2 /HPF (0-2); Squamous Epithelial Cell Urine 0-2 /HPF (0-2); WBC Urine 0-5 /HPF (0-5)
[2022-12-04 16:57] VITALS: BP 189/95; PULSE 67; RESP 20; TEMP 36.8; O2SAT 98
[2022-12-04] MEDS: levoFLOXacin 500 MG TABLET PO (17:33)
[2022-12-04] MEDS: metroNIDAZOLE 500 MG TABLET PO (17:33)
== END 2022-12-04 17:36 | disposition home or self-care (01) ==
PROVIDERS: Physician Assistant; Emergency Provider Emergency Medicine; PCP Physician Assistant Medical
DX: K57.32 Diverticulitis of large intestine without perforation or abscess without bleeding (principal); K85.90 Acute pancreatitis without necrosis or infection, unspecified; I10 Essential (primary) hypertension; Z79.899 Other long term (current) drug therapy
CPT/HCPCS: 36415; 74176; 80053; 81001; 83690; 85025; 99283; 99284

== ENCOUNTER 2023-10-06 09:12 | Outpatient (AMB) | payer OTHER, SELFPAY ==
--- NOTE | 2023-10-06 09:19 | AM.OFFWIN_ITS ---
Intake Vital Signs 10/06/23 09:23 Height 5 ft 4 in BP 130/78 Blood Pressure Location Lt brachial Position Sitting Pulse 55 Pulse Source Pulse Oximeter Temp 98.2 F Temp Source Oral Pulse Oximetry (%) 97 Intake Visit Reasons: EP Sinus pain/pressure congestion [phone] Intake Note: pt is here for c/o posible sinus infection, bilateral ear pain, sinus congestion and sinus pressure with pain. pt states its been 5 days and at home covid test are negative Patient Tobacco Use Status: Never used Tobacco Allergies bees Allergy (Mild, Uncoded 10/06/23 09:20) Swelling Do you need a note to return to daycare/school/sports/work: Yes HPI HPI Comments History of Present Illness Details Patient is a 57-year-old female in for a sick visit. She states that for the past 5 days she has developed symptoms of sore throat, sinus pressure, headache, postnasal drip. She states that 1 day she had a fever but took Tylenol has not had fever since. 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 States she is able to eat and drink. Denies shortness of breath, chest pain, dizziness, nausea, vomiting, diarrhea. [facility] Medical History Hypothyroid HTN (hypertension) Arthritis Fibromyalgia Social History Patient Tobacco Use Status: Never used Tobacco Review of Systems Const All systems reviewed & are unremarkable except as noted in HPI and below Reports headache(s) Eyes Reports eye discharge (Patient admits tearing in the left eye. Some pinkness.) ENT Reports otalgia, Reports headache(s), Reports nasal congestion, Reports sinus pressure and Reports sore throat Neuro Reports headache(s) Physical Exam Vital Signs: Last Vital Signs Temp 98.2 F 10/06/23 09:23 Pulse 55 10/06/23 09:23 BP 130/78 10/06/23 09:23 Pulse Ox 97 10/06/23 09:23 Vital signs reviewed are stable Const Other: Appearance: Alert.? Oriented X3.? No acute distress.? Head: Normocephalic, atraumatic, no step-offs or deformities Eyes: Pupils equal, round and reactive to light.?+ left eye tearing. ENT: Pharynx erythema. Nasal congestion. +post nasal drip. TM intact, erythema nad effusion of left ear. Neck: Normal inspection.? Neck supple.?Full ROM CVS: Normal heart rate and rhythm.? Pulses normal.? Respiratory: No respiratory distress.? Breath sounds normal.? Abdomen: Soft and nontender.? Skin: Skin warm and dry.? Normal skin color.? Normal skin turgor.? Extremities: No lower extremity edema.? No calf ttp. 5/5 strength to bilateral upper and lower extremities Neuro: Oriented X 3.? No motor deficit.? No sensory deficit. CN 2-12 intact Results AMB Rapid Strep AMB Rapid Strep Negative Last Edit by ADDISON Mckeon on 10/06/23 10:12 Assessment & Plan Assessment & Plan (1) Otitis media: Comment: Will give Augmentin and prednisone to be taken as directed. Patient has been educated on signs of worsening symptoms and when to report to the walk-in or when to present to the ED. Patient states she understands and agrees with the plan. Code(s): H66.90 - Otitis media, unspecified, unspecified ear Qualifiers: Otitis media type: unspecified Laterality: left Qualified Code(s): H66.92 - Otitis media, unspecified, left ear Plan: Take your medications as prescribed. If you were prescribed antibiotics today, it is important that you take your medication to their entirety, do not skip any doses, do not finish them early. Follow-up with your primary care provider this week. Return to the emergency department with new or worsening symptoms. Such as fevers, chills, chest pain, shortness of breath, nausea, vomiting, dizziness, headache, vision changes, lethargy In case of emergency call 911 (2) Sore throat: Comment: Will prescribe Chloraseptic mouth spray. Code(s): J02.9 - Acute pharyngitis, unspecified Plan: Follow-up with PCP. Orders: Orders SARS-CoV2/FLU/RSV Today J06.9 - Acute upper respiratory infection, unspecified Medications: New prednisone 20 mg PO BID 10 tabs 0RF phenol 1.4% (Chloraseptic Throat [place]) 4 sprays mucous membrane Q4H PRN 20 mL 0RF sore throat amoxicillin-pot clavulanate 875-125 mg 1 tab PO Q12H 14 tabs 0RF Coding Level of Care Code Est Pt Level 3 (71060) Diagnoses Left otitis media, unspecified otitis media type H66.92 Otitis media type: unspecified Laterality: left Sore throat J02.9 Time Spent (min) 25
[2023-10-06 09:23] VITALS: BP 130/78; PULSE 55; TEMP 36.8; O2SAT 97
== END 2023-10-06 10:31 | disposition home or self-care (01) ==
PROVIDERS: PCP Physician Assistant Medical; Visit Provider Nurse Practitioner Primary Care
DX: H66.92 Otitis media, unspecified, left ear (principal); J02.9 Acute pharyngitis, unspecified
CPT/HCPCS: 87880; 99213

== ENCOUNTER 2023-10-06 14:00 | Outpatient (REF) | payer OTHER, SELFPAY ==
[2023-10-06 15:04] LABS: Influenza A PCR NEGATIVE (Negative); Influenza B PCR NEGATIVE (Negative); Resp Syncy Virus RNA Qual PCR NEGATIVE (Negative); SARS COV2 PCR INHOUSE NEGATIVE (Negative)
== END 2023-10-06 14:01 | disposition home or self-care (01) ==
LOC: HO.LNP 14:00
PROVIDERS: Visit Provider Nurse Practitioner Primary Care
DX: Z11.52 Encounter for screening for COVID-19 (principal); J06.9 Acute upper respiratory infection, unspecified
CPT/HCPCS: 0241U

== ENCOUNTER 2024-07-06 08:06 | Outpatient (AMB) | payer OTHER, SELFPAY ==
[2024-07-06 08:15] VITALS: BP 122/70; PULSE 58; TEMP 36.9; O2SAT 98
--- NOTE | 2024-07-06 08:15 | MHC.OFFWIV ---
Intake Vital Signs 07/06/24 08:15 Weight 171 lb BP 122/70 Blood Pressure Location Lt brachial Position Sitting Pulse 58 Pulse Source Pulse Oximeter Temp 98.5 F Temp Source Oral Pulse Oximetry (%) 98 Oxygen Delivery Method Room Air Intake Visit Reasons: EP UTI? Intake Note: Patient here for blood in urine, full bladder feeling which started thursday. Patient Tobacco Use Status: Never used Tobacco Allergies bees Allergy (Mild, Uncoded 07/06/24 08:26) Swelling Do you need a note to return to daycare/school/sports/work: Yes HPI HPI Comments History of Present Illness Details Patient is a 58-year-old female complaining of 3 days of increased urgency and lower abdominal pain. She denies any fevers or burning with urination or increased low back pain from her chronic back pain. She has tried drinking cranberry juice to alleviate her symptoms but it does not seem to be working for her. She denies a history of kidney stones. [facility] Medical History Hypothyroid HTN (hypertension) Arthritis Fibromyalgia Social History Patient Tobacco Use Status: Never used Tobacco Review of Systems Const All systems reviewed & are unremarkable except as noted in HPI and below Physical Exam Vital Signs: Last Vital Signs Temp 98.5 F 07/06/24 08:15 Pulse 58 07/06/24 08:15 BP 122/70 07/06/24 08:15 Pulse Ox 98 07/06/24 08:15 Oxygen Delivery Method Room Air 07/06/24 08:15 Const General: cooperative, healthy appearing, comfortable and no acute distress Orientation/consciousness: patient oriented x3 HEENT Head: Yes normal to inspection Ears: hearing grossly normal bilaterally General nose exam: Normal external nose present Face and sinus: Yes normal facial exam Neck Neck: Yes normal visual inspection, Yes trachea midline and Yes supple Resp Effort & Inspection: normal respiratory effort and able to speak in complete sentences GI Inspection: Yes normal to inspection Palpation (GI): Soft to palpation and Tenderness to palpation present (GI) suprapubicly General: Yes no CVA tenderness Back/Spine/Pelvis Back: no CVA tenderness Skin General skin exam: no rashes or lesions noted Neuro General: patient oriented x3 Psych Appearance: grossly normal Speech and movement: Normal speech and movement present Attitude: cooperative Thought process: Normal thought process present Insight: Good insight present (Psych) Judgement: Good judgement present (Psych) Assessment & Plan Assessment & Plan (1) UTI (urinary tract infection): Code(s): N39.0 - Urinary tract infection, site not specified Qualifiers: Urinary tract infection type: acute cystitis Hematuria presence: with hematuria Qualified Code(s): N30.01 - Acute cystitis with hematuria Plan: Vital signs are stable, patient well-appearing, UA is negative for infection but positive for blood. We will send prescription for a UTI and treat patient based on her symptoms. Did review the signs of a kidney stone and when she should go to the emergency department. Wrote work note Plan See above Medications: New cefuroxime axetil 500 mg PO Q12H 10 tabs 0RF Coding Level of Care Code New Pt Level 3 (65761) Diagnoses Acute cystitis with hematuria N30.01 Urinary tract infection type: acute cystitis Hematuria presence: with hematuria
== END 2024-07-06 08:52 | disposition home or self-care (01) ==
PROVIDERS: PCP Physician Assistant Medical; Visit Provider Physician Assistant
DX: N30.01 Acute cystitis with hematuria (principal); Z13.9 Encounter for screening, unspecified

== ENCOUNTER → 2024-07-06 08:06 | Outpatient (BNVA) | payer OTHER, SELFPAY | PROVIDERS: PCP Physician Assistant Medical; Visit Provider Physician Assistant | DX: N30.01 Acute cystitis with hematuria (principal) | CPT/HCPCS: 81003 ==

== ENCOUNTER 2024-11-28 12:42 | Outpatient (AMB) | payer OTHER, SELFPAY ==
--- NOTE | 2024-11-28 13:06 | A.OFFVIS_ITS ---
Intake Visit Reasons: history of gross hematuria Intake Note: New Patient presents for initial visit for gross hematuria and kidney lesion Urology Medications: none Blood Thinner: none Smoker: never Brim Edge Trimmer Required: No Accompanied by: Self / Same As Patient Allergies bees Allergy (Mild, Uncoded 11/28/24 13:46) Swelling Medication List - Last Reconciled 11/29/24 by [facility]EN albuterol sulfate 90 mcg/actuation 1 inh inhalation QID PRN cyclosporine 0.05% (Restasis) drps ophthalmic (eye) epinephrine 1 mg IM DAILY hydrochlorothiazide 25 mg PO DAILY levothyroxine 125 mcg PO DAILY omeprazole 40 mg PO DAILY propranolol mg PO HPI Comments Details: Vonda is a very pleasant 59-year-old female patient of . She has a past medical history of hypertension, fibromyalgia, hypothyroidism and arthritis. She presents to the office today as a new patient for a 2nd opinion. In discussion with the patient today she reports previously following up with [facility] for complex left renal lesion as well as episodes of gross hematuria she has had. She reports recently having had an MRI within the last few weeks for surveillance monitoring of cystic lesion. Patient brings with her today report that notes bilateral kidneys with no hydronephrosis. 1.2 cm T2 hyperintense signal lesion in the left upper kidney has thin septations in corresponds with the septated cyst on ultrasound from 06/03/2023 without change in size. She discusses having had episodes of gross hematuria typically once a year for the last 3 years and describes these events as infrequent and happening just once in 1 day. She reports last episode was over a year ago. She denies ever having had an in office cystoscopy. She denies any previous history of nicotine dependence and or workplace chemical exposure. We discussed at length potential causes of gross hematuria as well as further workup in risks and benefits of these interventions. We discussed obtaining CT urogram however patient reports she has had deductibles and is enquiring less expensive testing. Will obtain retroperitoneal ultrasound for further assessment evaluation. In office urinalysis results reviewed with the patient today trace microscopic hematuria otherwise within normal limits. She otherwise denies urinary urgency, urinary frequency, incontinence, nocturia, dysuria, foul smelling urine, changes to urinary stream, flank pain, fever, and or chills. She is happy with her current voiding parameters. Plan The approach for the patient's gross hematuria includes a recommended cystoscopy to exclude bladder malignancy possibilities, with education on procedure details provided. Renal cysts warrant regular monitoring with imaging, advised bi- annually. Urine cytology aims to explore further hematuria etiology. Patient was informed and verbally consented to the use of an ambient scribe for clinic note documentation during this visit. Discussion Notes I discussed the importance of cystoscopy, explaining the procedure's safety and commonality in urology practice. The risks, benefits, and rationale for performing a cystoscopy were explained alongside continued renal and bladder monitoring schedules. The patient engaged thoughtfully with queries regarding past inconsistencies and was reassured about the appropriate next steps co ncerning renal and bladder evaluations. I addressed her past confusion and affirmed our treatment plan, aligning with her care priorities. Alternatives and potential further testing, including cystoscopic examination and repeated imaging, were thoroughly deliberated. Patient Instructions - Schedule and undergo a renal and bladder ultrasound. - Return for a cystoscopy as discussed to evaluate the bladder directly. - Follow up with periodic imaging for your renal cysts as recommended. - Stay alert for any change in urinary symptoms and report promptly. - Review urine cytology results at the follow-up appointment. - Contact our office for any additional urinary symptoms or concerns that arise. [facility] Medical History Hypothyroid HTN (hypertension) Arthritis Fibromyalgia Social History Patient Tobacco Use Status: Never used Tobacco Review of Systems Const All systems reviewed & are unremarkable except as noted in HPI and below Physical Exam Const General: cooperative, healthy appearing, comfortable, no acute distress, well developed, alert and awake Orientation/consciousness: patient oriented x3 Limitations: no limitations HEENT Head: Yes normal to inspection, Yes normocephalic and Yes atraumatic Ears: hearing grossly normal bilaterally Eyes General: appearance normal, both eyes and all related structures Neck Neck: Yes normal visual inspection and Yes trachea midline Chest Chest palpation & inspection: normal inspection of the chest Resp Effort & Inspection: normal respiratory effort and able to speak in complete sentences Cardio Rate: regular rate GI Inspection: Yes normal to inspection General: Yes no CVA tenderness Back/Spine/Pelvis Back: no CVA tenderness Skin General skin exam: no rashes or lesions noted Neuro General: patient oriented x3 Extrem General: Yes normal to inspection Psych Appearance: grossly normal and well kempt Mental Status: mental status grossly normal Speech and movement: Normal speech and movement present and Clear speech present Affect: normal affect Attitude: cooperative Thought process: Normal thought process present Thought content: Normal thought content present Insight: Fair insight present (Psych) Judgement: Fair judgement present (Psych) Results AMB Urinalysis, Automated UA Leukoctes 0 Guerline/uL Last Edit by Calastone on 11/28/24 16:50 UA Nitrite Last Edit by Calastone on 11/28/24 16:50 UA Urobilinogen 0.2 mg/dL Last Edit by Calastone on 11/28/24 16:50 UA Protein 0 mg/dL Last Edit by Calastone on 11/28/24 16:50 UA pH 6.5 Last Edit by Calastone on 11/28/24 16:50 UA Blood 10 Carlos/uL Last Edit by Calastone on 11/28/24 16:50 UA Specific Avalon 1.010 Last Edit by Calastone on 11/28/24 16:50 UA Ketone Last Edit by Calastone on 11/28/24 16:50 UA Bilirubin 0 mg/dL Last Edit by Calastone on 11/28/24 16:50 UA Glucose 0 mg/dL Last Edit by Calastone on 11/28/24 16:50 Results Reviewed Results Reviewed: Laboratory Last Values Urine pH (Auto) 6.5 11/28/24 16:49 Specific Avalon (Auto) 1.010 11/28/24 16:49 Urine Protein (Auto) 0 mg/dL 11/28/24 16:49 Glucose (UA)(Auto) 0 mg/dL 11/28/24 16:49 Urine Blood (Auto) 10 Carlos/uL 11/28/24 16:49 Urine Bilirubin (Auto) 0 mg/dL 11/28/24 16:49 Urine Urobilinogen (Auto) 0.2 mg/dL 11/28/24 16:49 Leukocyte Esterase (Auto) 0 Guerline/uL 11/28/24 16:49 Assessment & Plan Assessment & Plan (1) Hematuria: Code(s): R31.9 - Hematuria, unspecified Category: Medical (2) Complex renal cyst: Code(s): N28.1 - Cyst of kidney, acquired Category: Medical Plan In office urinalysis results reviewed with the patient today; as noted above; will send for urine cytology. Previous MRI imaging results reviewed with the patient today; as noted above. We discussed close surveillance monitoring of complex left renal cyst. We discussed potential causes of gross hematuria as well as further workup in risks and benefits of these interventions. She reports be happy with current voiding parameters. All questions were answered. Follow-up next available in office cystoscopy with imaging to be completed prior; or sooner with any issues, concerns, and or questions. Orders: Orders Urine Cytology 11/28/24 R31.9 - Hematuria, unspecified AMB Urinalysis Automated 11/28/24 Z13.9 - Encounter for screening, unspecified US retroperitoneal comp 11/28/24 R31.9 - Hematuria, unspecified Patient Instructions: The patient had an opportunity to ask questions regarding the treatment plan. All questions were answered. Physical exam, labs, and imaging were discussed and reviewed in detail. As well as risks, benefits, and discussion of treatment choices. No major barriers to understanding were identified. The patient expressed understanding and agreement with the above treatment plan. The patient was made aware they should contact our office by phone for worsening of their current condition, the appearance of new symptoms, or with any qu estions or concerns. Compliance is encouraged with any medications and follow up testing that is ordered. It is a privilege to be allowed the opportunity to participate in? your urological care.? Again, if you have any questions or concerns If you have any questions or concerns please do not hesitate to contact me. The office is [phone]. This note is constructed using voice recognition software. While every effort has been made to ensure accuracy fire suppression captain errors may have been included. Yours sincerely, CONCEPCION Keller Coding Level of Care Code New Pt Level 3 (48187) Diagnoses Hematuria R31.9 Complex renal cyst N28.1
--- OUTSIDE RECORDS SUMMARY | 2024-11-28 14:44 | XMS_ITS | Clinical Summary ---
Author Organization [facility] [address] [place] [address] [place] [phone] Phone Care Team Providers Care Director Payer Name Role Phone Wilian Tsang Primary Care Provider [phone] Allergies Active Allergy Reactions Criticality Noted Date Comments Bee Venom Protein (Honey Bee) Anaphylaxis High 09/11/2022 Other Swelling 05/28/2018 Bee Stings- Swelling/Edema Medications methocarbamoL (ROBAXIN) 750 mg tablet Take 1 Tablet by mouth 3 times daily. 06/07/20 24 Active fluticasone propionate (FLONASE) 50 mcg/actuation nasal spray 2 Sprays by Each Nare route daily. 02/16/20 24 Active albuterol HFA (PROAIR HFA ; PROVENTIL HFA ; VENTOLIN HFA) 90 mcg/actuation inhaler Inhale 1 Puff into the lungs every 6 hours as needed for Cough or Wheezing. 08/17/20 23 Active EPINEPHrine (EpiPen 2-Olvin) 0.3 mg/0.3 mL injection Inject 0.3 mg into the muscle as needed for Other (anaphylactic reaction). 2-pack. Fill with whichever brand is covered by insurance. 08/17/20 23 Active diclofenac (VOLTAREN) 1 % topical gel Apply 2 g topically 4 times daily as needed for Other (arthritis pain). 01/23/20 23 Active OMEGA-3 FATTY ACIDS ORAL Take 1 Tablet by mouth daily. 12/17/19 23 Active multivitamin with minerals (SANDRA MULTIVITAMIN WITH MINERAL ORAL) Take 1 Tab by mouth daily. 01/12/20 15 Active propranoloL (INDERAL) 20 mg tablet Take 1 tablet by mouth once daily 90 tablet 1 09/12/20 24 Active phentermine 15 mg capsuleIndicatio ns:Class 1 obesity due to excess calories without serious comorbidity with body mass index (BMI) of 30.0 to 30.9 in adult Take 1 capsule (15 mg total) by mouth 1 (one) time each day before breakfast. Max Daily Amount: 15 mg 30 each 1 09/27/19 25 Active topiramate (Topamax) 50 mg tabletIndication s:Class 1 obesity due to excess calories without serious comorbidity with body mass index (BMI) of 30.0 to 30.9 in adult Take 1 tablet (50 mg total) by mouth at bedtime. 30 each 1 09/27/19 25 Active omeprazole (PriLOSEC) [address] capsule Take 1 capsule by mouth once daily 90 capsule 10/08/19 25 Active levothyroxine (SYNTHROID, LEVOTHROID) 125 mcg tablet Take 1 tablet by mouth once daily 90 tablet 10/31/19 25 Active hydroCHLOROthiaz wally (HYDRODIURIL) 25 mg tablet Take 1 tablet by mouth once daily 90 tablet 2 11/01/19 25 Active famotidine (PEPCID) 20 mg tablet Take 1 tablet (20 mg total) by mouth 2 (two) times a day. 180 tablet 1 11/07/19 25 Active levothyroxine (SYNTHROID, LEVOTHROID) 125 mcg tablet Take 1 tablet by mouth once daily 90 tablet 08/09/20 24 025 Discontinued hydroCHLOROthiaz wally (HYDRODIURIL) 25 mg tablet Take 1 tablet (25 mg total) by mouth 1 (one) time each day. 90 tablet 08/09/20 24 025 Discontinued Active Problems Problem Noted Date Diagnosed Date Hyperlipidemia 02/21/2020 Thyroid nodule 02/21/2020 Spinal stenosis of lumbar region with radiculopa thy 11/25/2018 Neck pain 08/25/2017 Right shoulder pain 08/25/2017 Idiopathic scoliosis of thoracolumbar spine 07/0 02/2017 Lower back pain 03/19/2017 Overview (07/12/2024): MRI Lumbar Spine Oct 2018 Multiple bright T1 and T2 signal lesions probably hemangiomas. Multilevel bony and discs degenerative changes. Marked spinal stenosis at L4-5 level. Effacement of the L4 nerve roots. Effacement of the S1 nerve roots. Migraine 09/15/2016 Inflammatory arthritis 02/15/2016 Overview (07/12/2024): Positive DENIA with migratory polyarticular joint pain and swelling Hypertension 11/14/2009 Asthma 11/27/2005 Hypothyroidism 11/27/2005 Fibromyalgia 11/27/2005 Overview (07/12/2024): IMO update Generalized osteoarthrosis 11/27/2005 Resolved Problems Problem Noted Date Diagnosed Date Resolved Date Esophageal reflux 04/26/2007 07/12/2024 Encounters Date Type Department Care Team Description 11/18/2024 Telephone Adult Medicine [address] [phone] Wilian Tsang PA 11/15/2024 2:56 PM EST - 11/15/2024 11:59 PM EST Hospital Encounter Radiology Department - [address] [phone] RUQ pain; Bowel disease Discharge Disposition: Home or Self Care 11/07/2024 1:00 PM EST Office Visit Adult Medicine [address] [phone] Wilian Tsang, PA RUQ pain (Primary Dx); Bowel disease 09/27/2024 3:30 PM EST Consult Bariatric Surgery - [address] [place] [phone] El Miles MD Class 1 obesity due to excess calories without serious comorbidity with body mass index (BMI) of 30.0 to 30.9 in adult (Primary Dx) from Last 3 Months Immunizations Name Administration Dates Next Due Influenza Quadravalent, MDCK , 0.5ml, preservative free (Flucelvax) 6mo and older 05/28/2023,07/04/2022,06/06/2020,05/18,06/27/2018 Influenza Quadravalent, MDCK , 0.5ml, with preservative (Flucelvax) 6mo and older 05/28/2017 Influenza trivalent, 0.5mL, preservative free (Fluarix; FluLaval; Fluzone) ages 6mo and older (Afluria) 3 years and older 05/18/2024,06/13/2016 Influenza, Unspecified 06/11/2023 Pfizer (ages 12 & older) Biv alent, COVID-19 07/04/2022 Pneumococcal polysaccharide 23 valent (Pneumovax 23) 2yo and older 09/11/2016 Td Tetanus diptheria (Tdvax) 7yo and older 05/13/2019 Td, Unspecified 09/24/2000 Tdap Tetanus diptheria acell ular pertussis (Boostrix; Adacel) 7yo and older 04/29/2011 Zoster recombinant (Shingrix ) 19yo and older 06/01/2021,04/01/2021 Surgical History Surgery Date Site/Laterality Comments WRIST MASS EXCISION Left PROCEDURE: VA EXCISION GANGLION WRIST DORSAL/VOLAR PRIMARY OTHER SURGICAL HISTORY 06/2009 PROCEDURE: VA EXC CYST/ABERRANT BREAST TISSUE OPEN / LESION; COMMENT: benign COLONOSCOPY 2016 PROCEDURE: HISTORICAL COLONOSCOPY; COMMENT: diverticulosis; no polyps BREAST SURGERY Right PROCEDURE: VA UNLISTED PROCEDURE BREAST; COMMENT: lumpectomy BREAST SURGERY 09/2015 Left PROCEDURE: VA UNLISTED PROCEDURE BREAST; COMMENT: papilloma CHOLECYSTECTOMY 06/2019 PROCEDURE: LAPAROSCOPY, CHOLECYSTECTOMY BREAST BIOPSY PROCEDURE: BX BREAST; PERC NEEDLE CORE W/IMAG GUID; COMMENT: b/l bxs-benign CHOLECYSTECTOMY PROCEDURE: VA LAPAROSCOPY SURG CHOLECYSTECTOMY Medical History Medical History Date Comments Unspecified hypothyroidism DX:Un specified hypothyroidism Myalgia and myositis, unspecified DX:Myalgia and myositis, unspecified Rosacea DX:Rosacea Esophageal reflux 04/26/2007 DX:Esophageal reflux Unspecified asthma(493.90) DX:Un specified asthma(493.90) Generalized osteoarthrosis, unspecified site DX:Generalized osteoarthrosi s, unspecified site Family History Medical History Relation Name Comments Heart disease Brother 1 metastatic cancer Brother 1 maybe lung was smoker Coronary artery disease Father hype rtension/ prostate cancer Prostate cancer Father Colon cancer Father's side aunt Esophageal cancer Father's side uncle Arthritis Mother late 60's said to be DJD Breast cancer Mother late 60's 8 Colon cancer Mother late 60's Hypertension Mother late 60's HEART PROBLEMS ,COLON CANCER, skin cancer Colon cancer Paternal Grandfather Colon cancer Paternal Grandmother Relation Name Status Comments Brother 1 Alive Brother 2 Alive Daughter Alive Father Alive Father's side Mother late 60's Paternal Grandfather Paternal Grandmother Sister Alive Son Alive Social History Tobacco Use Types Packs/Day Years Used Date Smoking Tobacco: Never Smokeless Tobacco: Never Tobacco Cessation:Counseling Given: Not Answered Alcohol Use Standard Drinks/Week Comments Yes 0 (1 standard drink = 0.6 oz pur e alcohol) occ Comments No Sex and Gender Information Value Date Recorded Sex Assigned at Not on file Legal Sex Female 2:17 PM EST Gender Identity Not on file Sexual Orientation Not on file 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 Not on file Not on file Not on file Obstetrics History Last Filed Vital Signs Vital Sign Reading Time Taken Comments Blood Pressure 145/84 11/07/2024 1:13 PM EST Pulse 74 11/07/2024 1:13 PM EST Temperature 35.8 ??C (96.5 ??F) 11/07/2024 1:13 PM ES T Respiratory Rate 14 11/07/2024 1:13 PM EST Oxygen Saturation - - Inhaled Oxygen Concentration - - Weight 78.9 kg (174 lb) 11/07/2024 1:13 PM EST Height 162.6 cm (5' 4 ) 11/07/2024 1:13 PM EST Body Mass Index 29.87 11/07/2024 1:13 PM EST Plan of Treatment Upcoming Encounters Date Type Department Care Team (Late st Contact Info) Description 11/30/2024 3:00 PM EDT Consult Gastroenterology - [place] [facility] [address] [facility] [address] [place] [phone] Ranjeet Lacey MD 175 [facility] [address] [place] [address] 12/27/2024 4:15 PM EDT Office Visit Bariatric Surgery - [place] [facility] [address] [place] [phone] El Miles MD 175 [facility] [address] [place] [address] 12/29/2024 3:20 PM EDT Appointment Radiology Department - [address] [phone] 02/21/2025 3:30 PM EDT Office Visit Adult Medicine [address] [phone] Wilian Tsang PA [address] [place], [place] Health Maintenance Due Date Last Done Comments Pneumococcal Vaccine: 50+ Years (2 of 2 - PCV) 09/11/2017 09/11/2016 Pneumococcal Vaccine: Pediatrics (0 to 5 Years) and At-Risk Patients (6 to 64 Years) (2 of 2 - PCV) 09/11/2017 09/11/2016 Depression Screening 08/23/2022 HIV Screening 08/23/2022 Social Influencers of Health Screening 08/23/2022 Hypertension/CHF/CAD Annual BMP Blood Test 11/07/2025 11/07/2024, 09/30/2024, 05/04/2024, Additional history exists Breast Cancer Screening 12/17/2025 12/18/19, 12/12/2022, 12/09/2021, Additional history exists Cervical Cancer Screening: HPV 08/02/2026 08/02/2021 Colorectal Cancer Screening: Colonoscopy 09/19/2027 09/19/2022 DTaP,Tdap,and Td Vaccines (4 - Td or Tdap) 05/13/2029 05/13/2019, 04/29/2011, 09/24/2000 Cholesterol Screening (Lipid Panel) 09/30/2029 09/30/2024, 09/21/2023 Zoster Vaccines Completed 06/01/2021, 04/01/2021 Hepatitis C Screening Completed 09/21/2023 Influenza Vaccine Completed 05/18/2024, , 05/28/2023, Additional history exists COVID-19 Vaccine Completed 06/29/2024, , 07/28/2021, Additional history exists RSV Immunization Patients 60+ Years Old Completed 10/31/2024 HIB Vaccines Aged Out No longer eligi ble based on patient's age to complete this topic HPV Vaccines Aged Out No longer eligi ble based on patient's age to complete this topic Hepatitis A Vaccines Aged Out No long er eligible based on patient's age to complete this topic Hepatitis B Vaccines Aged Out No long er eligible based on patient's age to complete this topic IPV Vaccines Aged Out No longer eligi ble based on patient's age to complete this topic MMR Vaccines Aged Out No longer eligi ble based on patient's age to complete this topic Meningococcal ACWY Vaccine Aged Out N o longer eligible based on patient's age to complete this topic Meningococcal B Vacine Aged Out No lo nger eligible based on patient's age to complete this topic RSV Immunization Patients Under 20 months Aged Out No longer eligible based on patient's age to complete this topic Varicella Vaccines Aged Out No longer eligible based on patient's age to complete this topic Procedures Procedure Name Priority Date/Time Associated Diagnosis Comments MR ABDOMEN WO CONTRAST MRCP Routine 11/15/2024 3:37 PM EST RUQ pain Bowel disease HELICOBACTER PYLORI ANTIGEN, STOOL Routine 11/10/2024 2:38 PM EST RUQ pain Bowel disease CBC WITH AUTO DIFFERENTIAL Routine 11/07/2024 1:56 PM EST RUQ pain Bowel disease CBC AND DIFFERENTIAL Routine 11/07/2024 1:56 PM EST RUQ pain Bowel disease LIPASE Routine 11/07/2024 1:56 PM EST RUQ pain Bowel disease COMPREHENSIVE METABOLIC PANEL Routine 11/07/2024 1:56 PM EST RUQ pain Bowel disease GAMMA GLUTAMYL TRANSFERASE Routine 11/07/2024 1:56 PM EST RUQ pain Bowel disease THYROID STIMULATING HORMONE WITH REFLEX TO FREE T4 AND FREE T3 Routine 09/30/2024 4:20 PM EST Routine general medical examination at a health care facility Hypothyroidism, unspecified type Hyperlipidemia, unspecified hyperlipidemia type Secondary hypertension COMPREHENSIVE METABOLIC PANEL Routine 09/30/2024 4:20 PM EST Routine general medical examination at a health care facility Hypothyroidism, unspecified type Hyperlipidemia, unspecified hyperlipidemia type Secondary hypertension LIPID PANEL WITH REFLEX TO DIRECT LDL Routine 09/30/2024 4:20 PM EST Routine general medical examination at a health care facility Hypothyroidism, unspecified type Hyperlipidemia, unspecified hyperlipidemia type Secondary hypertension SCREENING MAMMOGRAPHY BI 2-VIEW BREAST INC CAD Routine 12/18/2023 3:31 PM EDT Encounter for screening mammogram for malignant neoplasm of breast HEPATITIS C SCREENING Routine 09/21/2023 COLONOSCOPY Routine 09/19/2022 HPV Routine 08/02/2021 from Last 3 Months or Most Recently Relevant to Health Maintenance Results * MR Abdomen wo Contrast MRCP (11/15/2024 3:37 PM EST) Anatomical Region Laterality Modality Body Magnetic Resonan ce 11/15/2024 10:3 5 PM EST Impressions 11/17/2024 8:29 PM EST 2 very small cystic-appearing pancreatic lesions which could represent IPMN. ??Recommend follow-up pancreatic MRI in 6-12 months. Minimal hepatic steatosis. POS [id number] -------- FINAL REPORT -------- Dictated By: Karina Contreras Dictated Date: 11/15/2024 22:35 ET Assigned Physician: Karina Cotnreras Reviewed and Electronically Signed By: Karina Contreras Signed Date: 11/17/2024 20:29 ET Workstation ID: [id number] Transcribed By: Self Edit Transcribed Date: 11/15/2024 22:59 ET Narrative 11/17/2024 8:29 PM EST EXAM: ??MRI abdomen HISTORY: ??Right upper quadrant pain. ??History of cholecystectomy. COMPARISON: None CORRELATION: ??CT abdomen and pelvis 04/27/2023 TECHNIQUE: Exam performed on a 1.5 [employer]iney high-field MRI scanner. ??Multiplanar imaging performed without contrast. ??Routine noncontrast MRCP also obtained. FINDINGS: Limited assessment of solid organs without intravenous contrast. Liver: Normal in size. ??Parenchyma shows minimal drop in signal on opposed phase imaging from minimal steatosis. ??No lesion detected. Gallbladder/biliary tree: Status post cholecystectomy. ??Mild dilatation of central intrahepatic ducts. ??Common bile duct is dilated up to 1.0 cm and tapers distally without intraluminal filling defects. ??This is likely related to post cholecystectomy state. Spleen: No abnormality detected. Pancreas: 2 very bright T2 signal abnormalities measuring 0.4 cm in the pancreatic head and 0.6 cm in the pancreatic body on the MRCP images both of which appear to communicate with the main pancreatic duct. ??No pancreatic ductal dilatation. Adrenal glands: No masses. Kidneys/ureters: ??No hydronephrosis. ??1.2 cm T2 hyperintense signal lesion in the left upper kidney has thin septations and corresponds with a septated cyst on ultrasound from 06/03/2023 without change in size. Vasculature: No abdominal aortic aneurysm. ?? Peritoneum: No significant ascites or organized collection. Lymph nodes: No lymphadenopathy detected. Bowel: Nonobstructed bowel pattern. Lower thorax: No infiltrate in the basal lungs. ??No pleural or pericardial effusions. Procedure Note Karina Contreras MD - 11/17/2024 EXAM: MRI abdomen HISTORY: Right upper quadrant pain. History of cholecystectomy. COMPARISON: None CORRELATION: CT abdomen and pelvis 04/27/2023 TECHNIQUE: Exam performed on a 1.5 [employer] high-field MRI scanner.Multiplanar imaging performed without contrast. Routine noncontrast MRCPalso obtained. FINDINGS: Limited assessment of solid organs without intravenous contrast. Liver: Normal in size. Parenchyma shows minimal drop in signal on opposedphase imaging from minimal steatosis. No lesion detected. Gallbladder/biliary tree: Status post cholecystectomy. Mild dilatation ofcentral intrahepatic ducts. Common bile duct is dilated up to 1.0 cm andtapers distally without intraluminal filling defects. This is likelyrelated to post cholecystectomy state. Spleen: No abnormality detected. Pancreas: 2 very bright T2 signal abnormalities measuring 0.4 cm in thepancreatic head and 0.6 cm in the pancreatic body on the MRCP images bothof which appear to communicate with the main pancreatic duct. Nopancreatic ductal dilatation. Adrenal glands: No masses. Kidneys/ureters: No hydronephrosis. 1.2 cm T2 hyperintense signal lesionin the left upper kidney has thin septations and corresponds with aseptated cyst on ultrasound from 06/03/2023 without change in size. Vasculature: No abdominal aortic aneurysm. Peritoneum: No significant ascites or organized collection. Lymph nodes: No lymphadenopathy detected. Bowel: Nonobstructed bowel pattern. Lower thorax: No infiltrate in the basal lungs. No pleural or pericardialeffusions. IMPRESSION: 2 very small cystic-appearing pancreatic lesions which could representIPMN. Recommend follow-up pancreatic MRI in 6-12 months. Minimal hepatic steatosis. POS [id number] -------- FINAL REPORT -------- Dictated By: Karina Contreras Dictated Date: 11/15/2024 22:35 ET Assigned Physician: Karina Contreras Reviewed and Electronically Signed By: Karina Contreras Signed Date: 11/17/2024 20:29 ET Workstation ID: [id number] Transcribed By: Self Edit Transcribed Date: 11/15/2024 22:59 ET Wilian JONES IM MRI PROCEDURES Final Result * Helicobacter pylori antigen, stool (11/10/2024 2:38 PM EST) Helicobacter Pylori Ag Not detected Not detected 11/15/2024 2:34 PM EST [facility] Comment: This test was performed at [facility] using a chemiluminescent immunoassay intended for the qualitative determination of helicobacter pylori (H. pylori) antigen in human stool. The test is an aid in the diagnosis of patients suspected of H. pylori infection and to measure post therapy response from patients. Assay results should be used in conjunction with other clinical and laboratory data to assist the clinician in making individual patient management decisions. A negative test result does not preclude the possibility of the presence of H. pylori antigen in the specimen, which may occur if the level of antigen is below the detection limit of the test. Antimicrobials, proton pump inhibitors, and bismuth preparations are known to suppress H. pylori and, if ingested, may give a false negative result. In these cases a new fecal sample should be collected and tested 14 days after treatment has stopped. Positive results from patients that have used antibiotics, PPIs, or bismuth compounds in the 14 days prior to fecal sample collection are still considered accurate. This assay has not been evaluated in a pediatric population. This test has been approved as an in vitro diagnostic by the [place] Food and Drug Administration. Test performed at [facility], [address] , [place], [place] ??[address] ? [phone] Edie Long MD, PhD - Day Care Worker Stool Rectum structure / Unknown Non-blood Collection / Unknown 11/10/2024 2:38 PM EST 11/10/2024 2:38 PM EST Wilian JONES LAB BODY FLUIDS AND STOOL S ORDERABLES Final Result [facility] [address] [place] [address] * (ABNORMAL) CBC auto differential (11/07/2024 1:56 PM EST) WBC 9.3 4.8 - 10.8 K/mcL LAB HEMETOLOGY METHOD 11/07/2024 4:43 PM [facility] RBC 4.80 3.80 - 4.80 M/mcL LAB HEMETOLOGY METHOD 11/07/2024 4:43 PM [facility] Hemoglobin 13.9 11.5 - 16.0 g/dL LAB HEMETOLOGY METHOD 11/07/2024 4:43 PM [facility] Hematocrit 43.7 35.0 - 47.0 % LAB HEMETOLOGY METHOD 11/07/2024 4:43 PM [facility] MCV 90.7 79.0 - 98.0 FL LAB HEMETOLOGY METHOD 11/07/2024 4:43 PM [facility] MCH 28.8 27.0 - 32.0 pcg LAB HEMETOLOGY METHOD 11/07/2024 4:43 PM [facility] MCHC 31.8(L) 32.0 - 37.0 g/dL LAB HEMETOLOGY METHOD 11/07/2024 4:43 PM [facility] RDW 12.6 11.0 - 15.0 % LAB HEMETOLOGY METHOD 11/07/2024 4:43 PM [facility] Platelets 307 130 - 400 K/mcL LAB HEMETOLOGY METHOD 11/07/2024 4:43 PM [facility] MPV 11.8(H) 7.0 - 11.0 FL LAB HEMETOLOGY METHOD 11/07/2024 4:43 PM [facility] NRBC 0.0 <1.0 % LAB HEMETOLOGY METHOD 11/07/2024 4:43 PM [facility] NRBC Absolute 0.00 <0.10 K/mcL LAB HEMETOLOGY METHOD 11/07/2024 4:43 PM [facility] Neutrophils Relative 58.3 % LAB HEMETOLOGY METHOD 11/07/2024 4:43 PM [facility] Lymphocytes Relative 30.3 % LAB HEMETOLOGY METHOD 11/07/2024 4:43 PM [facility] Monocytes Relative 8.5 % LAB HEMETOLOGY METHOD 11/07/2024 4:43 PM [facility] Eosinophils Relative 1.8 % LAB HEMETOLOGY METHOD 11/07/2024 4:43 PM [facility] Basophils Relative 0.8 % LAB HEMETOLOGY METHOD 11/07/2024 4:43 PM [facility] Immature Granulocytes Relative 0.3 % LAB HEMETOLOGY METHOD 11/07/2024 4:43 PM [facility] Neutrophils Absolute 5.41 1.50 - 7.00 K/mcL LAB HEMETOLOGY METHOD 11/07/2024 4:43 PM [facility] Lymphocytes Absolute 2.81 1.00 - 5.00 K/mcL LAB HEMETOLOGY METHOD 11/07/2024 4:43 PM EST [facility] Monocytes Absolute 0.79 0.20 - 1.00 K/[facility] HEMETOLOGY METHOD 11/07/2024 4:43 PM EST [facility] Eosinophils Absolute 0.17 0.00 - 0.50 K/[facility] HEMETOLOGY METHOD 11/07/2024 4:43 PM EST [facility] Basophils Absolute 0.07 0.00 - 0.20 K/[facility] HEMETOLOGY METHOD 11/07/2024 4:43 PM EST [facility] Immature Granulocytes Absolute 0.03 0.00 - 0.03 K/[facility] HEMETOLOGY METHOD 11/07/2024 4:43 PM EST [facility] Blood Venous blood specimen / Unknown Venipuncture / Unknown 11/07/2024 1:56 PM EST 11/07/2024 1:56 PM EST Wilian JONES LAB BLOOD ORDERABLES Viri l Result [facility] [address] [place] [address], [place] [phone] * Lipase (11/07/2024 1:56 PM EST) Lipase 43 13 - 75 unit/L LAB CHEMISTRY METHOD 11/07/2024 4:43 PM EST [facility] Blood Venous blood specimen / Unknown Venipuncture / Unknown 11/07/2024 1:56 PM EST 11/07/2024 1:56 PM EST Wilian JONES LAB BLOOD ORDERABLES Viri l Result [facility] [address] [place] [address], [place] [phone] * GGT (11/07/2024 1:56 PM EST) GGT 44 7 - 64 unit/L LAB CHEMISTRY METHOD 11/07/2024 4:43 PM [facility] Blood Venous blood specimen / Unknown Venipuncture / Unknown 11/07/2024 1:56 PM EST 11/07/2024 1:56 PM EST Wilian JONES LAB BLOOD ORDERABLES Viri l Result [facility] [address] [place] [address], [place] [phone] * Comprehensive metabolic panel (11/07/2024 1:56 PM EST) Only the most recent of2 resultswithin the time period is included. Pathologist [facility] Sodium 139 133 - 145 mmol/L LAB CHEMISTRY METHOD 11/07/2024 4:43 PM [facility] Potassium 4.0 3.5 - 5.5 mmol/L LAB CHEMISTRY METHOD 11/07/2024 4:43 PM [facility] Chloride 102 96 - 110 mmol/L LAB CHEMISTRY METHOD 11/07/2024 4:43 PM [facility] CO2 32 21 - 32 mmol/L LAB CHEMISTRY METHOD 11/07/2024 4:43 PM [facility] Anion Gap 5 3 - 11 LAB CHEMISTRY METHOD 11/07/2024 4:43 PM [facility] Glucose 85 70 - 100 mg/dL LAB CHEMISTRY METHOD 11/07/2024 4:43 PM [facility] BUN 14 5 - 25 mg/dL LAB CHEMISTRY METHOD 11/07/2024 4:43 PM [facility] Creatinine 0.82 0.50 - 1.10 mg/dL LAB CHEMISTRY METHOD 11/07/2024 4:43 PM [facility] eGFR 82 >=60 mL/min/1. 73m2 LAB CHEMISTRY METHOD 11/07/2024 4:43 PM [facility] Comment:Calculation based on the??Chronic Kidney Disease Epidemiology Collaboration (CKD-EPI) equation refit??without adjustment for race. BUN/Creatinine Ratio 17.1 LAB CHEMISTRY METHOD 11/07/2024 4:43 PM [facility] Calcium 10.0 8.5 - 10.5 mg/dL LAB CHEMISTRY METHOD 11/07/2024 4:43 PM [facility] AST (SGOT) 22 10 - 42 unit/L LAB CHEMISTRY METHOD 11/07/2024 4:43 PM [facility] ALT (SGPT) 55 10 - 60 unit/L LAB CHEMISTRY METHOD 11/07/2024 4:43 PM [facility] Alkaline Phosphatase 92 42 - 121 unit/L LAB CHEMISTRY METHOD 11/07/2024 4:43 PM [facility] Total Protein 7.4 6.0 - 8.0 g/dL LAB CHEMISTRY METHOD 11/07/2024 4:43 PM [facility] Albumin 4.3 3.2 - 5.0 g/dL LAB CHEMISTRY METHOD 11/07/2024 4:43 PM [facility] Total Bilirubin 0.5 0.0 - 1.4 mg/dL LAB CHEMISTRY METHOD 11/07/2024 4:43 PM [facility] Blood Venous blood specimen / Unknown Venipuncture / Unknown 11/07/2024 1:56 PM EST 11/07/2024 1:56 PM EST us Wilian JONES LAB BLOOD ORDERABLES Viri ayala Result [facility] [address] [place] [address], * Thyroid stimulating hormone with reflex to free t4 and free t3 (09/30/2024 4:20 PM EST) TSH 1.03 0.40 - 4.00 mcIU/mL LAB CHEMISTRY METHOD 09/30/2024 10:18 PM EST [facility] Blood Venous blood specimen / Unknown Venipuncture / Unknown 09/30/2024 4:20 PM EST 09/30/2024 4:20 PM EST Wilian JONES LAB BLOOD ORDERABLES Viri l Result [facility] [address] [place] [address], [place] [phone] * (ABNORMAL) Lipid panel with reflex to direct LDL (09/30/2024 4:20 PM EST) Cholesterol 210(H) 0 - 200 mg/dL LAB CHEMISTRY METHOD 09/30/2024 10:14 PM EST [facility] Triglycerides 218(H) 0 - 150 mg/dL LAB CHEMISTRY METHOD 09/30/2024 10:14 PM EST [facility] HDL 58 >=40 mg/dL LAB CHEMISTRY METHOD 09/30/2024 10:14 PM EST [facility] LDL Calculated 108(H) 0 - 100 mg/dL LAB CHEMISTRY METHOD 09/30/2024 10:14 PM [facility] VLDL Cholesterol Ivan 43.6 mg/dL LAB CHEMISTRY METHOD 09/30/2024 10:14 PM [facility] Non HDL Chol. (LDL+VLDL) 152(H) <145 mg/dL LAB CHEMISTRY METHOD 09/30/2024 10:14 PM [facility] Chol/HDL Ratio 3.6 0.0 - 4.4 LAB CHEMISTRY METHOD 09/30/2024 10:14 PM [facility] Blood Venous blood specimen / Unknown Venipuncture / Unknown 09/30/2024 4:20 PM EST 09/30/2024 4:20 PM EST Wilian JONES LAB BLOOD ORDERABLES Viri l Result [facility] [address] [place] [address], * SCREENING MAMMOGRAPHY BI 2-VIEW BREAST INC CAD (12/18/2023 3:31 PM EDT) Anatomical Region Laterality Modality Radiographic Tanna ging 12/12/2022 3:15 PM EDT Narrative 12/21/2023 12:42 PM EDT This is a summary report. The complete report is available in the patient's medical record. If you cannot access the medical record, please contact the sending organization for a detailed fax or copy. Full field digital screening 2D C views and ??tomosynthesis mammography, reviewed with CAD and compared to previous. The breasts are composed of fatty and fibroglandular tissue. ??No suspicious mass, architectural distortion or suspicious calcifications are identified. IMPRESSION: : No mammographic evidence of malignancy. ??Considering high lifetime breast cancer risk assessment yearly screening MRI examination is recommended. BIRADS 1-Negative; N. 5 year breast cancer risk assessment 6.8 % Lifetime breast cancer risk assessment 31.8 % Breast cancer risk category High (>20%) Procedure Note Addie Mejia MD - 05/02/2024 This is a summary report. The complete report is available in thepatient's medical record. If you cannot access the medical record, pleasecontact the sending organization for a detailed fax or copy. Full field digital screening 2D C views and tomosynthesis mammography,reviewed with CAD and compared to previous. The breasts are composed offatty and fibroglandular tissue. No suspicious mass, architecturaldistortion or suspicious calcifications are identified. IMPRESSION: : No mammographic evidence of malignancy. Considering high lifetime breastcancer risk assessment yearly screening MRI examination is recommended. BIRADS 1-Negative; N. 5 year breast cancer risk assessment 6.8 % Lifetime breast cancer risk assessment 31.8 % Breast cancer risk category High (>20%) Wilian JONES IMG XR PROCEDURES Final R esult * Hm Hepatitis C Screening (09/21/2023) Pathologist [facility] Hepatitis C Screening abstracted Historical Provider HEALTH MAINTENANCE Final Result * Colonoscopy (09/19/2022) Pathologist [facility] Colonoscopy no interpretation , abstracted Anatomical Region Laterality Modality Other Historical Provider HEALTH MAINTENANCE Final Result * Cervical Cancer Screening: HPV (08/02/2021) Pathologist [facility] Cervical Cancer Screening: HPV negative, abstracted Historical Provider HEALTH MAINTENANCE Final Result from Last 3 Months or Most Recently Relevant to Health Maintenance Insurance Care Teams Director Payer Relationship Specialty Start Date End Date Wilian Tsang PA [address] [place] [address] PCP - General Internal Medicine 09/12/24
--- OUTSIDE RECORDS SUMMARY | 2024-11-28 14:44 | XMS_ITS | Encounter Summary ---
Author Organization [facility] Address [id number] [place] [id number] Care Team Providers Care Circulation Supervisor Name Role Phone Wilian Tsang Primary Care Provider [phone] Reason for Referral * Imaging (Routine) - Pending Review Specialty Diagnoses / Procedures Referred By Tracy ritter Referred To Contact Radiology Diagnoses Pancreatic cyst Procedures MR Abdomen wo and w Contrast Wilian Tsang PA [address] [place] [address] Phone: tel: fax: [address] Phone: tel: Referral ID Status Reason Start Date Expiration Date V isits Requested Visits Authorized [id number] Pending Review 11/21/2024 11/21/2025 1 1 Encounter Details Date Type Department Care Team (Late st Contact Info) Description 11/18/2024 Telephone Adult Medicine [address] [phone] Wilian Tsang PA [address] [place] [address] Social History Tobacco Use Types Packs/Day Years Used Date Smoking Tobacco: Never Smokeless Tobacco: Never Alcohol Use Standard Drinks/Week Comments Yes 0 [...] file Not on file Not on file documented as of this encounter Progress Notes * KAREN Meek - 11/18/2024 12:02 PM EST Tried calling patient. Her MRI does show possible pancreatic cysts. I left a detailed message. We should consider repeating MRI in 6 months will be seeing gastroenterology as well. documented in this encounter Plan of Treatment Upcoming Encounters Date Type Department Care Team (Late st Contact Info) Description 11/30/2024 3:00 PM EDT Consult Gastroenterology - [address] [phone] Ranjeet Lacey MD [address] [address] 12/27/2024 4:15 PM EDT Office Visit Bariatric Surgery - [place] [address] [phone] El Miles MD [address] [address] 12/29/2024 3:20 PM EDT Appointment Radiology Department - [address] [phone] 02/21/2025 3:30 PM EDT Office Visit Adult Medicine [facility] - [address] [phone] Wilian Tsang PA [address] [place] [id number] Scheduled Orders Name Type Priority Associated Diagnoses Orde r Schedule MR Abdomen wo and w Contrast Imaging Routine Pancreatic cyst Expected: 05/24/2025, Expires: 11/21/2025 documented as of this encounter Visit Diagnoses Diagnosis Pancreatic cyst- Primary Cyst and pseudocyst of pancreas Encounter for screening mammogram for breast cancer documented in this encounter Care Teams Circulation Supervisor Relationship Specialty Start Date End Date Wilian Tsang PA [address] [place] [address] PCP - General Internal Medicine 09/12/24 documented as of this encounter
--- OUTSIDE RECORDS SUMMARY | 2024-11-28 14:44 | XMS_ITS ---
Author Name [facility] Organization Unknown History of Medication Use Medication Directions Dispensed Refills Start Date End Date Status pregabalin 50 mg capsule Take 1 capsule 3 times a day by oral route. active propranolol 20 mg tablet TAKE 1 TABLET B Y MOUTH ONCE DAILY active fluticasone propionate 50 mcg/actuation nasal spray,suspension USE 2 SPRAY(S) IN EACH NOSTRIL ONCE DAILY active azithromycin 250 mg tablet TAKE 2 TABLETS BY MOUTH ON DAY 1, AND THEN TAKE 1 TABLET BY MOUTH ONCE A DAY ON DAY 2 THROUGH DAY 5 08/26/20 24 completed levothyroxine 125 mcg tablet TAKE 1 TABLET BY MOUTH ONCE DAILY active cyclobenzaprine 7.5 mg tablet TAKE 1 TABLET BY MOUTH TWICE DAILY NEEDED FOR MUSCLE SPASM 08/26/20 24 completed Tyrvaya 0.03 mg/spray nasal spray instill 1 spray in each nostril twice daily DIRECTED 08/26/20 24 completed Fish Oil 350 mg-600 mg capsule Take by oral route. 08/26/20 24 active topiramate 50 mg tablet TAKE 1 TABLET BY MOUTH AT BEDTIME active prednisone 20 mg tablet TAKE 1 TABLET BY MOUTH TWICE DAILY 08/26/20 24 completed phentermine 15 mg capsule TAKE 1 CAPSULE BY MOUTH ONCE DAILY BEFORE BREAKFAST FOR A MAX DAILY AMOUNT OF 15 MG active hydrochlorothiazide 25 mg tablet TAKE 1 TABLET BY MOUTH ONCE DAILY FOR HIGH BLOOD PRESSURE active amoxicillin 875 mg-potassium clavulanate 125 mg tablet TAKE 1 TABLET BY MOUTH TWICE DAILY FOR 7 DAYS 08/26/20 24 completed methocarbamol 750 mg tablet TAKE 1 TABLET BY MOUTH THREE TIMES DAILY active Restasis 0.05 % eye drops in a dropperette INSTILL 1 DROP INTO EACH EYE TWICE DAILY DIRECTED active omeprazole 40 mg capsule,delayed release TAKE 1 CAPSULE BY MOUTH ONCE DAILY active albuterol sulfate HFA 90 mcg/actuation aerosol inhaler INHALE 1 PUFF BY MOUTH EVERY 6 HOURS NEEDED FOR COUGH OR WHEEZING. active epinephrine 0.3 mg/0.3 mL injection, auto-injector INJECT CONTENTS OF 1 PEN INTO THE MUSCLE NEEDED FOR ANAPHYLACTIC REACTION. active hydrochlorothiazide 12.5 mg tablet TAKE 1 TABLET BY MOUTH ONCE DAILY active Allergies Allergen Reaction Severity Comment Documented Date Source Statu s BEE VENOM PROTEIN (HONEY BEE) [facility] Problems Problem Status Onset Date Problem Type Date of Resoluti on Source Low back pain active 2024-08-[address] [facility] Fibromyalgia active 2024-08-[address] [facility] Spinal stenosis active 2024-08-[address] [facility] Asthma active 2024-08-[address] [facility] Idiopathic scoliosis active 2024-08-[address] [facility] Hyperlipidemia active 2024-08-[address] [facility] Gastroesophageal reflux disease active 2024-08-[address] [facility] Hypertensive disorder active 2024-08-[address] [facility] Migraine active 2024-08-[address] [facility] Hypothyroidism active 2024-08-[address] [facility] Osteoarthritis active 2024-08-[address] [facility] Arthritis active 2024-08-[address] [facility] Pain of right shoulder region active 2024-08-[address] [facility] Neck pain active 2024-08-[address] [facility] Thyroid nodule active 2024-08-[address] [facility] Encounters Encounter Type Encounter Reason Primary Diagnosis Location Date Ambulatory [facility] 10/05/2024 Care Team Organization Name Specialty Phone Email Start Date End [facility] 2024
--- OUTSIDE RECORDS SUMMARY | 2024-11-28 14:44 | XMS_ITS | Encounter Summary ---
Author Organization [facility] Address [address] [place] [address] Care Team Providers Care Sportspersons Name Role Phone Wilian Tsang Primary Care Provider [phone] [phone] Reason for Referral * Imaging (Routine) - Closed Specialty Diagnoses / Procedures Referred By Tracy ritter Referred To Contact Radiology Diagnoses RUQ pain Bowel disease Procedures MR Abdomen wo Contrast MRCP Wilian Tsang PA [address] [place] [address] Phone: tel: fax: Radiology Department - [address] Phone: tel: fax: Referral ID Status Reason Start Date Expiration Date Visits Re quested Visits Authorized [id number] Closed 11/07/2024 01/07/2025 1 1 * Consultation (Urgent) - Authorized Specialty Diagnoses / Procedures Referred By Tracy ritter Referred To Contact Gastroenterology Diagnoses RUQ pain Bowel disease Wilian Tsang PA [address] [place] [address] Phone: tel: fax: Gastroenterology [facility] 175 [facility] 175 [facility] [address] [place] [address] Phone: tel: fax: Referral ID Status Reason Start Date Expiration Date Visits Requested Visits Authorized [id number] Authorized Specialty Services Required 11/07/2024 11/07/2025 1 1 Reason for Visit * Reason Comments abdomen pressure On right side Encounter Details Date Type Department Care Team (Late st Contact Info) Description 11/07/2024 1:00 PM EST Office Visit Adult Medicine [facility] [address] [place], [place] [phone] Wilian Tsang PA [address] [place] [address] RUQ pain (Primary Dx); Bowel disease Social History Tobacco Use Types Packs/Day Years [...] on file documented as of this encounter Last Filed Vital Signs Vital Sign Reading [...] Mass Index 29.87 11/07/2024 1:13 PM EST documented in this encounter Ordered Prescriptions Prescription Sig Dispense Quantity Refills Last Filled Start Date End Date famotidine (PEPCID) 20 mg tablet Take 1 tablet (20 mg total) by mouth 2 (two) times a day. 180 tablet 1 11/07/2024 documented in this encounter Progress Notes * KAREN Meek - 11/07/2024 1:00 PM EST CHIEF COMPLAINT: abdomen pressure (On right side ) IDENTIFIER: Vonda Ayala is a 59 y.o. old female. HPI: This pleasant patient presents today complaining of some right upper quadrant discomfort. Has been going on for few months. We had discussed this at last visit but we decided to defer imaging. Unfortunately continues to be bothersome. It is worse after meals probably an hour or so after she eats. She denies any vomiting. She does have problems with bowel habits and some days she has frequent or loose bowel movements. Denies any fevers or chills. She states that the symptoms are bothersome enough to keep her up at night sometimes. She does have a history of cholecystectomy. She does have a history of esophageal reflux and she is taking omeprazole 40 mg and she still frequent symptoms. She does think that it helps at least somewhat. ROS: GENERAL: Negative for malaise, significant weight loss and fever RESPIRATORY: No cough, wheezing or shortness of breath CARDIOVASCULAR: Negative for chest pain, leg swelling and palpitations GI: See HPI : Negative for dysuria, frequency, and incontinence PAST MEDICAL HISTORY: Patient Active Problem List Diagnosis Date Noted Hyperlipidemia 02/21/2020 Thyroid nodule 02/21/2020 Spinal stenosis of lumbar region with radiculopathy 11/25/2018 Neck pain 08/25/2017 Right shoulder pain 08/25/2017 Idiopathic scoliosis of thoracolumbar spine 03/19/2017 Lower back pain 03/19/2017 Migraine 09/15/2016 Inflammatory arthritis 02/15/2016 Hypertension 11/14/2009 Asthma 11/27/2005 Hypothyroidism 11/27/2005 Fibromyalgia 11/27/2005 Generalized osteoarthrosis 11/27/2005 Past Surgical History: Procedure Laterality Date BREAST BIOPSY PROCEDURE: BX BREAST; PERC NEEDLE CORE W/IMAG GUID; COMMENT: b/l bxs-benign BREAST SURGERY Right PROCEDURE: KS UNLISTED PROCEDURE BREAST; COMMENT: lumpectomy BREAST SURGERY Left 09/2015 PROCEDURE: KS UNLISTED PROCEDURE BREAST; COMMENT: papilloma CHOLECYSTECTOMY 06/2019 PROCEDURE: LAPAROSCOPY, CHOLECYSTECTOMY CHOLECYSTECTOMY PROCEDURE: KS LAPAROSCOPY SURG CHOLECYSTECTOMY COLONOSCOPY 2016 PROCEDURE: HISTORICAL COLONOSCOPY; COMMENT: diverticulosis; no polyps OTHER SURGICAL HISTORY 06/2009 PROCEDURE: KS EXC CYST/ABERRANT BREAST TISSUE OPEN 1/> LESION; COMMENT: benign WRIST MASS EXCISION Left PROCEDURE: KS EXCISION GANGLION WRIST DORSAL/VOLAR PRIMARY SOCIAL HISTORY: Social History Tobacco Use Smoking status: Never Smokeless tobacco: Never Substance Use Topics Alcohol use: Yes Comment: occ FAMILY HISTORY: Family History Problem Relation Name Age of Onset Hypertension Mother late 60's HEART PROBLEMS ,COLON CANCER, skin cancer Arthritis Mother late 60's said to be DJD Breast cancer Mother late 60's 70 12/2017 Colon cancer Mother late 60's 63 Coronary artery disease Father hypertension/ prostate cancer Prostate cancer Father Other (metastatic cancer) Brother maybe lung was smoker Heart disease Brother Colon cancer Paternal Grandmother Colon cancer Paternal Grandfather Colon cancer Father's side aunt Esophageal cancer Father's side uncle Family Status Relation Name Status Mother late 60's Father Alive Sister Alive Brother Alive Brother Alive PGM (Not Specified) PGF (Not Specified) Daughter Alive Son Alive Father's jessica (Not Specified) No partnership data on file MEDICATIONS DISCONTINUED/REORDERED: There are no discontinued medications. ACTIVE MEDICATIONS: Outpatient Medications Marked as Taking for the 11/07/24 encounter (Office Visit) with KAREN Meek Medication Sig Dispense Refill albuterol HFA (PROAIR HFA ; PROVENTIL HFA ; VENTOLIN HFA) 90 mcg/actuation inhaler Inhale 1 Puff into the lungs every 6 hours as needed for Cough or Wheezing. diclofenac (VOLTAREN) 1 % topical gel Apply 2 g topically 4 times daily as needed for Other (arthritis pain). EPINEPHrine (EpiPen 2-Olvin) 0.3 mg/0.3 mL injection Inject 0.3 mg into the muscle as needed for Other (anaphylactic reaction). 2-pack. Fill with whichever brand is covered by insurance. fluticasone propionate (FLONASE) 50 mcg/actuation nasal spray 2 Sprays by Each Nare route daily. hydroCHLOROthiazide (HYDRODIURIL) 25 mg tablet Take 1 tablet by mouth once daily 90 tablet 2 levothyroxine (SYNTHROID, LEVOTHROID) 125 mcg tablet Take 1 tablet by mouth once daily 90 tablet 0 methocarbamoL (ROBAXIN) 750 mg tablet Take 1 Tablet by mouth 3 times daily. multivitamin with minerals (SANDRA MULTIVITAMIN WITH MINERAL ORAL) Take 1 Tab by mouth daily. OMEGA-3 FATTY ACIDS ORAL Take 1 Tablet by mouth daily. omeprazole (PriLOSEC) [address] capsule Take 1 capsule by mouth once daily 90 capsule 0 propranoloL (INDERAL) 20 mg tablet Take 1 tablet by mouth once daily 90 tablet 1 topiramate (Topamax) 50 mg tablet Take 1 tablet (50 mg total) by mouth at bedtime. 30 each 1 ALLERGIES: Allergies Allergen Reactions Bee Venom Protein (Honey Bee) Anaphylaxis Other Swelling Bee Stings- Swelling/Edema PHYSICAL EXAM: Visit Vitals BP (!) 145/84 Pulse 74 Temp 35.8 ??C (96.5 ??F) (Temporal) Resp 14 Ht 1.626 m (64 ) Wt 78.9 kg (174 lb) BMI 29.87 kg/m?? OB Status Postmenopausal Smoking Status Never BSA 1.84 m?? General appearance: alert and oriented, in no acute distress Lungs: clear to auscultation bilaterally Heart: regular rate and rhythm, S1, S2 normal, no murmur, click, rub or gallop Abdomen: Very mild right upper quadrant tenderness no guarding or rebound negative Almonte sign LABS/IMAGING: Labs, imaging IMPRESSION: 1. RUQ pain 2. Bowel disease PLAN: 1. Patient with right upper quadrant discomfort, unclear cause. She does have a lot of reflux symptoms so this certainly could be dyspepsia or stomach issue. She has a history of cholecystectomy but is possible that her symptoms could still be from a biliary cause so I think it would make sense to check some imaging again MRCP would be ideal given the history of cholecystectomy. Going to have herdo some labs as well. I ordered H. pylori testing. She does seem to have a lot of reflux symptoms despite omeprazole it does at least help somewhat. I am going to try adding some Pepcid twice a day we will refer to gastroenterology as per endoscopy may be considered. Advised the patient to call me if any problems. Patient understands the plan. Patient is in agreement with the plan. documented in this encounter Plan of Treatment Upcoming Encounters Date Type Department Care Team (Late st Contact Info) Description 11/30/2024 3:00 PM EDT Consult Gastroenterology - [place] [address] 175 [facility] [address] [place] [phone] Ranjeet Lacey MD 175 [facility] [address] [place] [address] 12/27/2024 4:15 PM EDT Office Visit Bariatric Surgery - [place] 175 [facility] [address] [place] [phone] El Miles MD 175 [facility] [address] [place] [address] 12/29/2024 3:20 PM EDT Appointment Radiology Department - [address] [phone] 02/21/2025 3:30 PM EDT Office Visit Adult Medicine [address] [phone] Wilian Tsang PA [address] [place] [address] Scheduled Referrals Name Type Priority Associated Diagnoses Order Schedule Ambulatory referral to Gastroenterology Outpatient Referral Routine RUQ pain Bowel disease 1 Occurrences starting 11/07/2024 until 11/07/2025 documented as of this encounter Results * MR Abdomen wo Contrast MRCP (11/15/2024 3:37 PM EST) Anatomical Region Laterality Modality Body Magnetic Resonan ce 11/15/2024 10:3 5 PM EST Impressions 11/17/2024 8:29 PM EST 2 very small cystic-appearing pancreatic lesions which could represent IPMN. ??Recommend follow-up pancreatic MRI in 6-12 months. Minimal hepatic steatosis. POS [id number] -------- FINAL REPORT -------- Dictated By: Karina Contreras Dictated Date: 11/15/2024 22:35 ET Assigned Physician: Karina Contreras Reviewed and Electronically Signed By: Karina Contreras Signed Date: 11/17/2024 20:29 ET Workstation ID: [id number] Transcribed By: Self Edit Transcribed Date: 11/15/2024 [...] in 6-12 months. Minimal hepatic steatosis. POS [id number] -------- FINAL REPORT -------- Dictated By: Karina Contreras Dictated Date: 11/15/2024 22:35 ET Assigned Physician: Karina Contreras Reviewed and Electronically Signed By: Karina Contreras Signed Date: 11/17/2024 20:29 ET Workstation ID: [id number] Transcribed By: Self Edit Transcribed Date: 11/15/2024 22:59 ET Wilian JONES [facility] MRI PROCEDURES Final Result * GGT (11/07/2024 1:56 PM EST) GGT 44 7 - 64 unit/L LAB CHEMISTRY METHOD 11/07/2024 4:43 PM EST [facility]) [facility] Blood Venous blood specimen / Unknown Venipuncture / Unknown 11/07/2024 1:56 PM EST 11/07/2024 1:56 PM EST Wilian JONES LAB BLOOD ORDERABLES Viri l Result [facility] [address] [place] [address], * Comprehensive metabolic panel (11/07/2024 1:56 PM EST) Sodium 139 133 - 145 mmol/L LAB CHEMISTRY METHOD 11/07/2024 4:43 PM [facility] Potassium 4.0 3.5 - 5.5 mmol/L LAB CHEMISTRY METHOD 11/07/2024 4:43 PM [facility] Chloride 102 96 - 110 mmol/L LAB CHEMISTRY METHOD 11/07/2024 4:43 PM [facility] CO2 32 21 - 32 mmol/L LAB CHEMISTRY METHOD 11/07/2024 4:43 PM [facility] Anion Gap 5 3 - 11 LAB CHEMISTRY METHOD 11/07/2024 4:43 PM [facility] Glucose 85 70 - 100 mg/dL LAB CHEMISTRY METHOD 11/07/2024 4:43 PM [facility] BUN 14 5 - 25 mg/dL LAB CHEMISTRY METHOD 11/07/2024 4:43 PM [facility] Creatinine 0.82 0.50 - 1.10 mg/dL LAB CHEMISTRY METHOD 11/07/2024 4:43 PM [facility] eGFR 82 >=60 mL/min/1. 73m2 LAB CHEMISTRY METHOD 11/07/2024 4:43 PM [facility] Comment:Calculation based on the??Chronic Kidney Disease Epidemiology Collaboration (CKD-EPI) equation refit??without adjustment for race. BUN/Creatinine Ratio 17.1 LAB CHEMISTRY METHOD 11/07/2024 4:43 PM [facility] Calcium 10.0 8.5 - 10.5 mg/dL LAB CHEMISTRY METHOD 11/07/2024 4:43 PM [facility] AST (SGOT) 22 10 - 42 unit/L LAB CHEMISTRY METHOD 11/07/2024 4:43 PM [facility] ALT (SGPT) 55 10 - 60 unit/L LAB CHEMISTRY METHOD 11/07/2024 4:43 PM [facility] Alkaline Phosphatase 92 42 - 121 unit/L LAB CHEMISTRY METHOD 11/07/2024 4:43 PM [facility] Total Protein 7.4 6.0 - 8.0 g/dL LAB CHEMISTRY METHOD 11/07/2024 4:43 PM [facility] Albumin 4.3 3.2 - 5.0 g/dL LAB CHEMISTRY METHOD 11/07/2024 4:43 PM [facility] Total Bilirubin 0.5 0.0 - 1.4 mg/dL LAB CHEMISTRY METHOD 11/07/2024 4:43 PM [facility] Blood Venous blood specimen / Unknown Venipuncture / Unknown 11/07/2024 1:56 PM EST 11/07/2024 1:56 PM EST Wilian JONES LAB BLOOD ORDERABLES Viri l Result [facility] [address] [place] [address], [place] [phone] * Lipase (11/07/2024 1:56 PM EST) Lipase 43 13 - 75 unit/L LAB CHEMISTRY METHOD 11/07/2024 4:43 PM [facility] Blood Venous blood specimen / Unknown Venipuncture / Unknown 11/07/2024 1:56 PM EST 11/07/2024 1:56 PM EST Wilian JONES LAB BLOOD ORDERABLES Viri l Result [facility] [address] [place] [address], [place] [phone] documented in this encounter Visit Diagnoses Diagnosis RUQ pain- Primary Abdominal pain, right upper quadrant Bowel disease Unspecified disorder of intestine RUQ pain Abdominal pain, right upper quadrant Bowel disease Unspecified disorder of intestine Encounter for screening mammogram for breast cancer documented in this encounter Orders Lab Orders Without Results Count Last Ordered D ate First Ordered Date HELICOBACTER PYLORI ANTIGEN, STOOL 1 2024 documented in this encounter Care Teams Sportspersons Relationship Specialty Start Date End Date Wilian Tsang PA [address] [place] [address] PCP - General Internal Medicine 09/12/24 documented as of this encounter
--- OUTSIDE RECORDS SUMMARY | 2024-11-28 14:44 | XMS_ITS | Encounter Summary ---
Author Organization [facility] Address [address] [place] [address] Care Team Providers Care Javascript Programmer Name Role Phone Wilian Tsang Primary Care Provider [phone] [phone] Reason for Referral * Imaging (Routine) - Closed Specialty Diagnoses / Procedures Referred By Tracy t Referred To Contact Radiology Diagnoses RUQ pain Bowel disease Procedures MR Abdomen wo Contrast MRCP Wilian Tsang PA [address] [place] [address] Phone: tel: fax: Radiology Department [address] Phone: tel: fax: Referral ID Status Reason Start Date Expiration Date Visits Re quested Visits Authorized [id number] Closed 11/07/2024 01/07/2025 1 1 Reason for Visit * Imaging (Routine) - Closed Specialty Diagnoses / Procedures Referred By Tracy ritter Referred To Contact Radiology Diagnoses RUQ pain Bowel disease Procedures MR Abdomen wo Contrast MRCP Wilian Tsang PA [address] [place] [address] Phone: tel: fax: Radiology Department - [address] Phone: tel: fax: Referral ID Status Reason Start Date Expiration Date Visits Re quested Visits Authorized [id number] Closed 11/07/2024 01/07/2025 1 1 Encounter Details Date Type Department Care Team (Latest Contact Info) Description 11/15/2024 2:56 PM EST - 11/15/2024 11:59 PM EST Hospital Encounter Radiology Department - [address] [phone] RUQ pain; Bowel disease Discharge Disposition: Home or Self Care Social History Tobacco Use Types Packs/Day Years [...] on file documented as of this encounter Medications at Time of Discharge albuterol HFA (PROAIR HFA ; PROVENTIL HFA ; VENTOLIN HFA) 90 mcg/actuation inhaler Inhale 1 Puff into the lungs every 6 hours as needed for Cough or Wheezing. 08/17/2023 diclofenac (VOLTAREN) 1 % topical gel Apply 2 g topically 4 times daily as needed for Other (arthritis pain). 01/22/2023 EPINEPHrine (EpiPen 2-Olvin) 0.3 mg/0.3 mL injection Inject 0.3 mg into the muscle as needed for Other (anaphylactic reaction). 2-pack. Fill with whichever brand is covered by insurance. 08/17/2023 famotidine (PEPCID) 20 mg tablet Take 1 tablet (20 mg total) by mouth 2 (two) times a day. 180 tablet 1 11/07/2024 fluticasone propionate (FLONASE) 50 mcg/actuation nasal spray 2 Sprays by Each Nare route daily. 02/16/2024 hydroCHLOROthiazid e (HYDRODIURIL) 25 mg tablet Take 1 tablet by mouth once daily 90 tablet 2 11/01/2024 levothyroxine (SYNTHROID, LEVOTHROID) 125 mcg tablet Take 1 tablet by mouth once daily 90 tablet 10/31/2024 methocarbamoL (ROBAXIN) 750 mg tablet Take 1 Tablet by mouth 3 times daily. 06/07/2024 multivitamin with minerals (SANDRA MULTIVITAMIN WITH MINERAL ORAL) Take 1 Tab by mouth daily. 01/11/2015 OMEGA-3 FATTY ACIDS ORAL Take 1 Tablet by mouth daily. 12/16/2022 omeprazole (PriLOSEC) [address] capsule Take 1 capsule by mouth once daily 90 capsule 10/08/2024 phentermine 15 mg capsuleIndications :Class 1 obesity due to excess calories without serious comorbidity with body mass index (BMI) of 30.0 to 30.9 in adult Take 1 capsule (15 mg total) by mouth 1 (one) time each day before breakfast. Max Daily Amount: 15 mg 30 each 1 09/27/2024 propranoloL (INDERAL) 20 mg tablet Take 1 tablet by mouth once daily 90 tablet 1 09/12/2024 topiramate (Topamax) 50 mg tabletIndications: Class 1 obesity due to excess calories without serious comorbidity with body mass index (BMI) of 30.0 to 30.9 in adult Take 1 tablet (50 mg total) by mouth at bedtime. 30 each 1 09/27/2024 documented as of this encounter Discharge Disposition Disposition Code Departure Means Destination Home or Self Care documented in this encounter Plan of Treatment Upcoming Encounters Date Type Department Care Team (Late st Contact Info) Description 11/30/2024 3:00 PM EDT Consult Gastroenterology - [place] [address] [phone] Ranjeet Lacey MD 175 [facility] 200 [place] [address] 12/27/2024 4:15 PM EDT Office Visit Bariatric Surgery - [place] [address] [phone] El Miles MD [address] [address] 12/29/2024 3:20 PM EDT Appointment Radiology Department - [address], [place] [phone] 02/21/2025 3:30 PM EDT Office Visit Adult Medicine [facility] [address] [place], [place] [phone] Wilian Tsang PA [address] [place], [place] documented as of this encounter Procedures Procedure Name Priority Date/Time Associated Diagnosis Comments MR ABDOMEN WO CONTRAST MRCP Routine 11/15/2024 3:37 PM EST RUQ pain Bowel disease documented in this encounter Results * MR Abdomen wo Contrast MRCP (11/15/2024 3:37 PM EST) Anatomical Region Laterality Modality Body Magnetic Resonan ce 11/15/2024 10:3 5 PM EST Impressions 11/17/2024 8:29 PM EST 2 very small cystic-appearing pancreatic lesions which could represent IPMN. ??Recommend follow-up pancreatic MRI in 6-12 months. Minimal hepatic steatosis. POS [id number] -------- FINAL REPORT -------- Dictated By: Karina Contreras Dictated Date: 11/15/2024 22:35 ET Assigned Physician: Karina Contreras Reviewed and Electronically Signed By: Karina Contreras Signed Date: 11/17/2024 20:29 ET Workstation ID: [id number] Transcribed By: Self Edit Transcribed Date: 11/15/2024 [...] in 6-12 months. Minimal hepatic steatosis. POS [id number] -------- FINAL REPORT -------- Dictated By: Karina Contreras Dictated Date: 11/15/2024 22:35 ET Assigned Physician: Karina Contreras Reviewed and Electronically Signed By: Karina Contreras Signed Date: 11/17/2024 20:29 ET Workstation ID: [id number] Transcribed By: Self Edit Transcribed Date: 11/15/2024 22:59 ET Wilian JONES IMG MRI PROCEDURES Final Result documented in this encounter Visit Diagnoses Diagnosis RUQ pain Abdominal pain, right upper quadrant Bowel disease Unspecified disorder of intestine Encounter for screening mammogram for breast cancer documented in this encounter Care Teams Javascript Programmer Relationship Specialty Start Date End Date Wilian Tsang PA [address] [place] [address] PCP - General Internal Medicine 09/12/24 documented as of this encounter
--- OUTSIDE RECORDS SUMMARY | 2024-11-28 14:44 | XMS_ITS | Data Portability ---
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 I discussed treatment options with the patient we will start with Lyrica 50 mg to be titrated up as tolerated. I went over the use and side effects of this medication. She will call with any problems or questions. I spent 38 minutes reviewing the record and interviewing and examining the patient. [email or web address] Not available 08/26/2024 14:20:26 10/10/2024 10/10/2024 58-year-old with occipital neuralgia. The patient will be issued a prescription for Lyrica 50 mg twice a day. She will take it if her symptoms return. I spent 26 minutes reviewing the record and interviewing and examining the patient. [email or web address] Not available 10/10/2024 13:15:12 Plan of Treatment Reminders Order Date Submit Date Provider Last Modified By Organization Details Last Modified Time Details Appointments None record ed. Lab None record ed. Referral None record ed. Procedures None record ed. Surgeries None record ed. Imaging None record ed. Medication Orders None record ed. Patient TargetsNo targets recorded. Patient InstructionsNo instructions recorded. Reason for Referral None Reported. Results Created Date Observation Date Name Description Value Unit Range Abnormal Flag Note LastModifiedBy Organization Detail LastModifiedTime 08/26/20 24 05/25/2024 MRI, brain , w/o contr ast No observ ation record ed. [email or web address] Not Available 2023 08:32:45 08/26/20 24 05/18/2024 XR, neck No observ ation record ed. [email or web address] Not Available 2023 08:35:24 Result Notes None recorded. Problems Name Problem SNOMED Code Status Onset Date Resolution Date Notes Provider Name and Address Organization Details Recorded Time Asthma 363369343 Active 2023 Dodie Fox null, [facility] 4 07:48:13 Fibromyalg ia 024601203 Active 2023 Dodie Chung null, [facility] 4 07:48:23 Osteoarthr itis 497473420 [facility] 4 07:48:49 Hyperlipid emia 25299276 [facility] 2023 [facility] 4 07:48:59 Hypertensi ve disorder 77489009 Active 2023 [facility] 4 07:49:07 Hypothyroi dism 92117228 Active 2023 [facility] 4 07:49:14 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 [facility] 4 07:51:01 Arthritis 0992210 Active 2023 [facility] 4 07:51:22 Low back pain 089808334 Active 2023 [facility] 4 07:51:29 Migraine 37151972 Active 2023 [facility] 4 07:51:35 Neck pain 01278439 Active 2023 [facility] 4 07:51:41 Pain of right shoulder region Active 2023 Dodie Chung [facility] 4 07:52:00 Spinal stenosis 16405697 Active 2023 Dodie Chung [facility] 4 07:52:18 Thyroid nodule 538250706 Active 2023 Dodie Chung [facility] 4 07:52:28 Gastroesop hageal reflux disease 942877687 Active 2023 Dodiejeremi Chung [facility] 4 08:01:56 Problem Notes None recorded. Procedures Surgical History Date Name Laterality Status Provider Name and Address Organization Details Recorded Time excision of ganglion cyst of wrist [place] [facility] [place] 08:02:41 excision of aberrant tissue of breast [place] [facility] [place]/26/2024 08:03:18 colonoscopy [place] [facility] [place] 08/26/2024 08:03:26 lumpectomy of breast [place] [facility] [place] 08/26/2024 08:03:36 excision of papilloma [place] [facility] [place] 08/26/2024 08:04:00 laparoscopy [place] [facility] [place] 08/26/2024 08:04:21 cholecystectomy [place] [facility] [place] 08/26/2024 08:04:32 percutaneous needle biopsy of breast completed [facility] [place] 08/26/2024 08:04:56 Imaging Results Imaging Date Name Status LastModified by Organiz ation Details LastModified Time 05/25/2024 MRI, brain, w/o contrast completed [email or web address] Information not available 08/26/2024 08:32:45 05/18/2024 XR, neck completed [email or web address] Information no t available 08/26/2024 08:35:24 Procedure Notes None recorded. Medical Equipment None Reported. Allergies Allergen ID Allergen Name Allergen Category Reaction Reaction Severity Criticality Documentation Date Start Date Code Code System Note Provider Name and Address Organization Details Recorded Time 2420 honey bee venom medicatio n Not available Not available Not available 08/26/2024 77925 7 RxNorm Dodie Chung berta [facility] 4 07:46:52 Medications Name Sig Start Date Stop Date Status Note LastModified by Organization Details LastModified Time azithromy shirin 250 mg tablet TAKE 2 TABLETS BY MOUTH ON DAY 1, AND THEN TAKE 1 TABLET BY MOUTH ONCE A DAY ON DAY 2 THROUGH DAY 5 08/26 completed Not Available Not Available Not Available prednison e 20 mg tablet TAKE 1 TABLET BY MOUTH TWICE DAILY 08/26 completed Not Available Not Available Not Available phentermi ne 15 mg capsule TAKE 1 CAPSULE BY MOUTH ONCE DAILY BEFORE BREAKFAS T FOR A MAX DAILY AMOUNT OF 15 MG active Not Available Not Available No t Available omeprazol e 40 mg capsule,d elayed release TAKE 1 CAPSULE BY MOUTH ONCE DAILY active Not Available Not Available No t Available methocarb italo 750 mg tablet TAKE 1 TABLET BY MOUTH THREE TIMES DAILY active only takes occassio ban at night if needed Not Available Not Available Not Available levothyro xine 125 mcg tablet TAKE 1 TABLET BY MOUTH ONCE DAILY active Not Available Not Available No t Available hydrochlo rothiazid e 25 mg tablet TAKE 1 TABLET BY MOUTH ONCE DAILY FOR HIGH BLOOD PRESSURE active Not Available Not Available No t Available epinephri ne 0.3 mg/0.3 mL injection , auto-inje ctor INJECT CONTENTS OF 1 PEN INTO THE MUSCLE NEEDED FOR ANAPHYLA CTIC REACTION . active Not Available Not Available No t Available methylpre dnisolone 4 mg tablets in a dose pack TAKE BY MOUTH DIRECTED ON INSIDE OF PACKAGE 08/26 completed Not Available Not Available Not Available albuterol sulfate HFA 90 mcg/actua tion aerosol inhaler INHALE 1 PUFF BY MOUTH EVERY 6 HOURS NEEDED FOR COUGH OR WHEEZING . active Not Available Not Available No t Available propranol ol 20 mg tablet TAKE 1 TABLET BY MOUTH ONCE DAILY active Not Available Not Available No t Available fluticaso ne propionat e 50 mcg/actua tion nasal spray,ector pension USE 2 SPRAY(S) IN EACH NOSTRIL ONCE DAILY active Not Available Not Available No t Available amoxicill in 875 mg-potass ium clavulana te 125 mg tablet TAKE 1 TABLET BY MOUTH TWICE DAILY FOR 7 DAYS 08/26 completed Not Available Not Available Not Available Restasis 0.05 % eye drops in a dropperet te INSTILL 1 DROP INTO EACH EYE TWICE DAILY DIRECTED active Not Available Not Available No t Available topiramat e 50 mg tablet TAKE 1 TABLET BY MOUTH AT BEDTIME active Not Available Not Available No t Available pregabali n 50 mg capsule TAKE 1 CAPSULE BY MOUTH TWICE DAILY active Not Available Not Available No t Available hydrochlo rothiazid e 12.5 mg tablet TAKE 1 TABLET BY MOUTH ONCE DAILY active Not Available Not Available No t Available cyclobenz aprine 7.5 mg tablet TAKE 1 TABLET BY MOUTH TWICE DAILY NEEDED FOR MUSCLE SPASM 08/26 completed Not Available Not Available Not Available Fish Oil 350 mg-600 mg capsule Take by oral route. active Not Available Not Available No t Available Tyrvaya 0.03 mg/spray nasal spray instill 1 spray in each nostril twice daily DIRECTED 08/26 completed Not Available Not Available Not Available Vitals Date Recorded Body height Body mass index (BMI) Body weight Heart rate Oxygen saturation Oxygen saturation in Arterial blood by Pulse oximetry Body temperature Systolic blood pressure Diastolic blood pressure Provider Name and Address Organization Details Last Updated DateTime 4 162.56 cm 29.5 kg/m2 60803.8 9 g 62 /min 99 % 99 % 98 [degF] 166 mm[Hg] 84 mm[Hg] Dodie [facility] 4 13:47:56 Date Recorded Body height Body mass index (BMI) Body weight Heart rate Oxygen saturation Oxygen saturation in Arterial blood by Pulse oximetry Body temperature Systolic blood pressure Diastolic blood pressure Provider Name and Address Organization Details Last Updated DateTime 5 162.56 cm 28.3 kg/m2 81255.7 4 g 65 /min 99 % 99 % 98 [degF] 147 mm[Hg] 73 mm[Hg] Dodie [facility] 5 12:56:15 Social History Question Answer Notes LastModified by Organizat ion Details LastModified Time When Did The Pain Begin? 03/14/2024 [email or web address] Information not available 08/26/2024 How Did It Start? Insulating Attic And Started Agrivating Symptoms [email or web address] Information not available 08/26/2024 Where Do You Feel The Pain? Neck, Low Back [email or web address] Information not available 08/26/2024 Has The Pain Changed Since It Began? Yes [email or web address] Information not available 08/26/2024 What Makes The Pain Worse? Sneezing, Coughing, Bending Down [email or web address] Information not available 08/26/2024 What Makes The Pain Better? No [email or web address] Information not available 08/26/2024 What Treatment Have You Tried Thus Far? (PT, Surgery, Injections) Low Back: Steroid Injections Previously [email or web address] Information not available 08/26/2024 What Type Of Relief From Treatment Did You Receive And For How Long? Full Relief For Years [email or web address] Information not available 08/26/2024 List Of Pain Medication(s) That You Have Tried In The Past: [place] Raymond, Lidocane Patches, Alieve, Advil [email or web address] Information not available 08/26/2024 Is The Pain: Always Present [email or web address] Informat ion not available 08/26/2024 On A Scale Of 0-10 Rate Your Pain When It Is At It's Worst: 10 [email or web address] Information not available 08/26/2024 On A Scale Of 0-10 Rate Your Pain When It Is Usually: 7 [email or web address] Information not available 08/26/2024 On A Scale Of 0-10 Rate Your Pain When It Is At It's Least: 4 [email or web address] Information not available 08/26/2024 Sex: Female Functional Status None recorded. Mental Status None recorded. Family History Nothing Reported. Medical History Condition Response Head Trauma/Injury N Hernia Y Depression N Acid Reflux (GERD) Y Back Injury Y Allergies/Hayfever N Anxiety N Migraines Y Ulcers N Diabetes N Asthma Y Substance Use N Hypertension Y Gynecological HistoryNo gynecological history recorded. Obstetrics History GPAL:G 0 P 0 0 0 0 Past Encounters Encounter ID Performer Location Encounter Start Date Encounter Closed Date Diagnosis/Indication Diagnosis SNOMED-CT Code Diagnosis ICD10 Code Diagnosis Note [id number] Rocky Ibanez MD [id number] [facility] [address] [place] [address] 08/26/2024 13:41:34 08/26/2024 14:20:45 [id number] Rocky Ibanez MD [id number] [facility] [address] [place] [address] 10/10/2024 12:52:00 10/10/2024 13:16:32 Cervico-occipital neuralgia 18515914 M54.81 Health Concerns Section Related Observation LastModified by Organization Detai ls LastModified Time None Recorded Concern Status LastModified by Organization Details LastModified Time None Recorded Advance Directives Directive None Recorded Payers Encounter Date Sequence Insurance Name Policy Number Policy Meehan Covered Member ID Meehan Member ID Guarantor Name 08/26/2024 1 [facility] [id number] Vonda Ayala [id number] Vonda Jamie 10/10/2024 1 [facility] [id number] Vonda Jamie [id number] Vonda Jamie Notes Date Note Type Note Provider Name and Address Organization Details Recorded Time 08/26/2024 text/html The patient come s in today for her initial consultation. She is a 58-year-old with a chief complaint of neck pain beginning in March and April 2024. The pain radiate radiates up the back of the head to the ears eyes and generalized and feels like a vice. She has unbearable pain with sneezing or coughing. She has significant pain when bending over. There is no arm numbness or weakness and minimal pain. She takes Aleve or Advil. She has tried [place] balm, Arnica with lidocaine, heat, and cold. She has tried methocarbamol and diclofenac. None of which helped. She is reluctant to go to physical therapy because anyone touching her neck aggravates her pain significantly. MRI of the brain was unremarkable. C-spine films showed mild DJD and muscle spasm. Rocky Ibanez MD [facility], [place] [facility] 08/26/2024 14:20:43 10/10/2024 text/html The patient come s in today for a follow-up visit. She was last seen 08/26/2024 for initial consultation. She has a diagnosis of occipital neuralgia. She was placed on Lyrica 50 mg and got up to twice a day. She is significantly better with significantly less pain. She does still have severe pain if she coughs or laughs too much. She ran out of her Lyrica over the weekend however does not notice an increase in the pain. It is possible that her wind up phenomenon has been terminated. Rocky Ibanez MD [facility] [place] [facility] 10/10/2024 13:15:41 OBGyn Episode No OBEpisode recorded.
== END 2024-11-28 13:51 | disposition home or self-care (01) ==
LOC: HO.HUSH 12:43
PROVIDERS: PCP Physician Assistant Medical; Visit Provider Nurse Practitioner Family
DX: R31.9 Hematuria, unspecified (principal); N28.1 Cyst of kidney, acquired
CPT/HCPCS: 99203

== ENCOUNTER 2024-11-28 12:42 | Outpatient (REF) | payer OTHER, SELFPAY ==
[2024-11-28 18:10] LABS: Urine Cytology See Pathology rpt
== END 2024-11-28 12:43 | disposition home or self-care (01) ==
LOC: HO.LAB 12:42
PROVIDERS: PCP Physician Assistant Medical; Visit Provider Nurse Practitioner Family
DX: R31.9 Hematuria, unspecified (principal)
CPT/HCPCS: 81003; 88112

== ENCOUNTER 2024-11-28 16:10 | Outpatient (REF) | payer OTHER, SELFPAY | END 2024-11-28 16:11 | disposition home or self-care (01) | LOC: HO.LNP 16:10 | PROVIDERS: Visit Provider Nurse Practitioner Family | DX: Z13.89 Encounter for screening for other disorder (principal) ==

== ENCOUNTER 2024-12-12 15:20 | Outpatient (REF) | payer OTHER, SELFPAY ==
--- NOTE | ~2024-12-12 | US_ITS ---
CLINICAL HISTORY: R31.9 - Hematuria, unspecified US kidneys and bladder Comparison: None Findings: Right kidney 9.3 cm length. No significant focal abnormality. Left kidney 11.2 cm length. 1.3 x 0.9 cm left upper pole cyst. There is an internal septation. Recommend follow-up CT with contrast. No bilateral hydronephrosis. Normal bilateral renal echogenicity. The urinary bladder is unremarkable. Prevoid volume 414 mL. Post void volume 8.6 mL. Bilateral ureteral jets visualized. Impression: Complex left upper pole renal cyst as above Recommend follow-up CT with contrast This document has been electronically signed by: Fabio Hansen MD on 12/12/2024 19:22:52
--- OUTSIDE RECORDS SUMMARY | 2024-12-12 17:18 | XMS_ITS | Clinical Summary ---
Author Organization [facility] [address] [place] [address] [place] [phone] Phone Care Team Providers Care Pedicab Driver Name Role Phone Wilian Tsang Primary Care Provider [phone] Allergies Active Allergy Reactions Criticality Noted Date Comments Bee Venom Protein (Honey Bee) Anaphylaxis High 09/11/2022 Other Swelling 05/28/2018 Bee Stings- Swelling/Edema Medications methocarbamoL (ROBAXIN) 750 mg tablet Take 1 Tablet by mouth 3 times daily. 4 Active fluticasone propionate (FLONASE) 50 mcg/actuation nasal spray 2 Sprays by Each Nare route daily. 4 Active albuterol HFA (PROAIR HFA ; PROVENTIL HFA ; VENTOLIN HFA) 90 mcg/actuation inhaler Inhale 1 Puff into the lungs every 6 hours as needed for Cough or Wheezing. 3 Active EPINEPHrine (EpiPen 2-Olvin) 0.3 mg/0.3 mL injection Inject 0.3 mg into the muscle as needed for Other (anaphylactic reaction). 2-pack. Fill with whichever brand is covered by insurance. 3 Active diclofenac (VOLTAREN) 1 % topical gel Apply 2 g topically 4 times daily as needed for Other (arthritis pain). 3 Active OMEGA-3 FATTY ACIDS ORAL Take 1 Tablet by mouth daily. 3 Active multivitamin with minerals (SANDRA MULTIVITAMIN WITH MINERAL ORAL) Take 1 Tab by mouth daily. 5 Active propranoloL (INDERAL) 20 mg tablet Take 1 tablet by mouth once daily 90 tablet 1 4 Active phentermine 15 mg capsuleIndication s:Class 1 obesity due to excess calories without serious comorbidity with body mass index (BMI) of 30.0 to 30.9 in adult Take 1 capsule (15 mg total) by mouth 1 (one) time each day before breakfast. Max Daily Amount: 15 mg 30 each 1 5 Active topiramate (Topamax) 50 mg tabletIndications :Class 1 obesity due to excess calories without serious comorbidity with body mass index (BMI) of 30.0 to 30.9 in adult Take 1 tablet (50 mg total) by mouth at bedtime. 30 each 1 5 Active omeprazole (PriLOSEC) [address] capsule Take 1 capsule by mouth once daily 90 capsule 5 Active levothyroxine (SYNTHROID, LEVOTHROID) 125 mcg tablet Take 1 tablet by mouth once daily 90 tablet 5 Active hydroCHLOROthiazi de (HYDRODIURIL) 25 mg tablet Take 1 tablet by mouth once daily 90 tablet 2 5 Active famotidine (PEPCID) 20 mg tablet Take 1 tablet (20 mg total) by mouth 2 (two) times a day. 180 tablet 1 5 Active cholestyramine (QUESTRAN) 4 gram powder Take 1 packet (4 g total) by mouth 2 (two) times a day with meals. Dissolve in 8 oz of liquid and drink before a meal 60 packet 11 5 12/01/19 26 Active Active Problems Problem Noted Date Diagnosed Date Heartburn 11/30/2024 History of laparoscopic cholecystectomy 12/01/19 25 Hyperlipidemia 02/21/2020 Thyroid nodule 02/21/2020 Spinal stenosis of lumbar region with radiculopa thy 11/25/2018 Neck pain 08/25/2017 Right shoulder pain 08/25/2017 Idiopathic scoliosis of thoracolumbar spine 02/2017 Lower back pain 03/19/2017 Overview (07/12/2024): [...] Encounters Date Type Department Care Team Description 11/30/2024 3:00 PM EDT Consult Gastroenterology [address] [place] [address] Ranjeet Lacey MD Heartburn (Primary Dx); RUQ pain; Bowel disease; History of laparoscopic cholecystectomy 11/18/2024 Telephone Adult Medicine [address] [phone] Wilian Tsang PA 11/15/2024 2:56 PM EST - 11/15/2024 11:59 PM EST Hospital Encounter Radiology Department [address] [phone] RUQ pain; Bowel disease Discharge Disposition: Home or Self Care 11/07/2024 1:00 PM EST Office Visit Adult Medicine [address] [phone] Wilian Tsang, PA RUQ pain (Primary Dx); Bowel disease 09/27/2024 3:30 PM EST Consult Bariatric Surgery [facility] [address] [facility] [phone] El Miles MD Class 1 obesity [...] Site/Laterality Comments WRIST MASS EXCISION Left PROCEDURE: IA EXCISION GANGLION WRIST DORSAL/VOLAR PRIMARY OTHER SURGICAL HISTORY 06/2009 PROCEDURE: IA EXC CYST/ABERRANT BREAST TISSUE OPEN / LESION; COMMENT: benign COLONOSCOPY 2016 PROCEDURE: HISTORICAL COLONOSCOPY; COMMENT: diverticulosis; no polyps BREAST SURGERY Right PROCEDURE: IA UNLISTED PROCEDURE BREAST; COMMENT: lumpectomy BREAST SURGERY 09/2015 Left PROCEDURE: IA UNLISTED PROCEDURE BREAST; COMMENT: papilloma CHOLECYSTECTOMY 06/2019 PROCEDURE: LAPAROSCOPY, CHOLECYSTECTOMY BREAST BIOPSY PROCEDURE: BX BREAST; PERC NEEDLE CORE W/IMAG GUID; COMMENT: b/l bxs-benign CHOLECYSTECTOMY PROCEDURE: IA LAPAROSCOPY SURG CHOLECYSTECTOMY Medical History Medical History [...] be DJD Breast cancer Mother late 60's Colon cancer Mother late 60's Hypertension Mother [...] Sign Reading Time Taken Comments Blood Pressure 152/86 11/30/2024 3:06 PM EDT Pulse 86 11/30/2024 3:06 PM EDT Temperature 35.8 ??C (96.5 ??F) 11/07/2024 1:13 PM ES T Respiratory Rate 14 11/07/2024 1:13 PM EST Oxygen Saturation - - Inhaled Oxygen Concentration - - Weight 77.1 kg (170 lb) 11/30/2024 3:06 PM EDT Height 162.6 cm (5' 4 ) 11/30/2024 3:06 PM EDT Body Mass Index 29.18 11/30/2024 3:06 PM EDT Plan of Treatment Upcoming Encounters Date Type Department Care Team (Late st Contact Info) Description 12/27/2024 4:15 PM EDT Office Visit Bariatric Surgery - [place] [address] [facility] [phone] El Miles MD [address] [facility] [phone] 12/29/2024 3:20 PM EDT Appointment Radiology Department - [place] [address] [place] [address] 02/02/2025 3:00 PM EDT Office Visit Gastroenterology - [place] [facility] 175 [facility] [address] [place] [phone] Ranjeet Lacey MD 175 [facility] [address] [place] [address] 02/21/2025 3:30 PM EDT Office Visit Adult Medicine [facility] [address] [place], [place] [phone] Wilian Tsang PA [address] [place], [place] Health Maintenance Due Date Last Done [...] Additional history exists Breast Cancer Screening 12/17/2025 12/18/19 24, 12/12/2022, 12/09/2021, Additional history exists Cervical Cancer [...] in 6-12 months. Minimal hepatic steatosis. POS [id number] -------- FINAL REPORT -------- Dictated By: Karina Contreras Dictated Date: 11/15/2024 22:35 ET Assigned Physician: Karina Contreras Reviewed and Electronically Signed By: Karina Contreras Signed Date: 11/17/2024 20:29 ET Workstation ID: [id number] Transcribed By: Self Edit Transcribed Date: 11/15/2024 [...] in 6-12 months. Minimal hepatic steatosis. POS [id number] -------- FINAL REPORT -------- Dictated By: Karina Contreras Dictated Date: 11/15/2024 22:35 ET Assigned Physician: Karina Contreras Reviewed and Electronically Signed By: Karina Contreras Signed Date: 11/17/2024 20:29 ET Workstation ID: [id number] Transcribed By: Self Edit Transcribed Date: 11/15/2024 22:59 ET Wilian JONES IM MRI PROCEDURES Final Result * Helicobacter pylori antigen, stool (11/10/2024 2:38 PM EST) Helicobacter Pylori Ag Not detected Not detected 11/15/2024 2:34 PM EST [facility] Comment: This test was performed at [facility] using a chemiluminescent immunoassay [...] Food and Drug Administration. Test performed at [facility], [address] , [place], [place] ??[address] ? [phone] Edie Long MD, PhD - Web Merchandiser Stool Rectum structure / Unknown Non-blood Collection / Unknown 11/10/2024 2:38 PM EST 11/10/2024 2:38 PM EST Wilian JONES LAB BODY FLUIDS AND STOOL S ORDERABLES Final Result [facility] [address] [place] [address] * (ABNORMAL) CBC auto differential (11/07/2024 1:56 PM EST) WBC 9.3 4.8 - 10.8 K/mcL LAB HEMETOLOGY METHOD 11/07/2024 4:43 PM [facility] RBC 4.80 3.80 - 4.80 M/mcL LAB HEMETOLOGY METHOD 11/07/2024 4:43 PM [facility] Hemoglobin 13.9 11.5 - 16.0 g/dL LAB HEMETOLOGY METHOD 11/07/2024 4:43 PM [facility] Hematocrit 43.7 35.0 - 47.0 % LAB HEMETOLOGY METHOD 11/07/2024 4:43 PM [facility] MCV 90.7 79.0 - 98.0 FL LAB HEMETOLOGY METHOD 11/07/2024 4:43 PM [facility] MCH 28.8 27.0 - 32.0 pcg LAB HEMETOLOGY METHOD 11/07/2024 4:43 PM [facility] MCHC 31.8(L) 32.0 - 37.0 g/dL LAB HEMETOLOGY METHOD 11/07/2024 4:43 PM [facility] RDW 12.6 11.0 - 15.0 % LAB HEMETOLOGY METHOD 11/07/2024 4:43 PM [facility] Platelets 307 130 - 400 K/mcL LAB HEMETOLOGY METHOD 11/07/2024 4:43 PM [facility] MPV 11.8(H) 7.0 - 11.0 FL LAB HEMETOLOGY METHOD 11/07/2024 4:43 PM [facility] NRBC 0.0 <1.0 % LAB HEMETOLOGY METHOD 11/07/2024 4:43 PM [facility] NRBC Absolute 0.00 <0.10 K/mcL LAB HEMETOLOGY METHOD 11/07/2024 4:43 PM [facility] Neutrophils Relative 58.3 % LAB HEMETOLOGY METHOD 11/07/2024 4:43 PM [facility] Lymphocytes Relative 30.3 % LAB HEMETOLOGY METHOD 11/07/2024 4:43 PM [facility] Monocytes Relative 8.5 % LAB HEMETOLOGY METHOD 11/07/2024 4:43 PM [facility] Eosinophils Relative 1.8 % LAB HEMETOLOGY METHOD 11/07/2024 4:43 PM [facility] Basophils Relative 0.8 % LAB HEMETOLOGY METHOD 11/07/2024 4:43 PM [facility] Immature Granulocytes Relative 0.3 % LAB HEMETOLOGY METHOD 11/07/2024 4:43 PM EST [facility] Neutrophils Absolute 5.41 1.50 - 7.00 K/mcL LAB HEMETOLOGY METHOD 11/07/2024 4:43 PM EST [facility] Lymphocytes Absolute 2.81 1.00 - 5.00 K/mcL LAB HEMETOLOGY METHOD 11/07/2024 4:43 PM EST [facility] Monocytes Absolute 0.79 0.20 - 1.00 K/[facility] LAB HEMETOLOGY METHOD 11/07/2024 4:43 PM EST [facility] Eosinophils Absolute 0.17 0.00 - 0.50 K/[facility] LAB HEMETOLOGY METHOD 11/07/2024 4:43 PM EST [facility] Basophils Absolute 0.07 0.00 - 0.20 K/mcL LAB HEMETOLOGY METHOD 11/07/2024 4:43 PM EST [facility] Immature Granulocytes Absolute 0.03 0.00 - 0.03 K/[facility] LAB HEMETOLOGY METHOD 11/07/2024 4:43 PM EST [facility] Blood Venous blood specimen / Unknown Venipuncture / Unknown 11/07/2024 1:56 PM EST 11/07/2024 1:56 PM EST Wilian JONES LAB BLOOD ORDERABLES Viri l Result [facility] [address] [place] [address], * Lipase (11/07/2024 1:56 PM EST) Lipase 43 13 - 75 unit/L LAB CHEMISTRY METHOD 11/07/2024 4:43 PM EST [facility] Blood Venous blood specimen / Unknown Venipuncture / Unknown 11/07/2024 1:56 PM EST 11/07/2024 1:56 PM EST Wilian JONES LAB BLOOD ORDERABLES Viri l Result [facility] [address] [place] [address], [place] [phone] * GGT (11/07/2024 1:56 PM EST) GGT 44 7 - 64 unit/L LAB CHEMISTRY METHOD 11/07/2024 4:43 PM [facility] Blood Venous blood specimen / Unknown Venipuncture / Unknown 11/07/2024 1:56 PM EST 11/07/2024 1:56 PM EST [facility] Barron Tsang [place] LAB BLOOD ORDERABLES Viri l Result Performing Organization Address [facility]/ZIP Co de Phone Number [facility] [address] [place] [address], [place] [phone] * Comprehensive metabolic panel (11/07/2024 1:56 PM EST) Only the most recent of2 resultswithin the time period is included. Pathologist [facility] Sodium 139 133 - 145 mmol/L LAB CHEMISTRY METHOD 11/07/2024 4:43 PM [facility] Potassium 4.0 3.5 - 5.5 mmol/L LAB CHEMISTRY METHOD 11/07/2024 4:43 PM [facility] Chloride 102 96 - 110 mmol/L LAB CHEMISTRY METHOD 11/07/2024 4:43 PM [facility] CO2 32 21 - 32 mmol/L LAB CHEMISTRY METHOD 11/07/2024 4:43 PM [facility] Anion Gap 5 3 - 11 LAB CHEMISTRY METHOD 11/07/2024 4:43 PM [facility] Glucose 85 70 - 100 mg/dL LAB CHEMISTRY METHOD 11/07/2024 4:43 PM [facility] BUN 14 5 - 25 mg/dL LAB CHEMISTRY METHOD 11/07/2024 4:43 PM [facility] Creatinine 0.82 0.50 - 1.10 mg/dL LAB CHEMISTRY METHOD 11/07/2024 4:43 PM [facility] eGFR 82 >=60 mL/min/1. 73m2 LAB CHEMISTRY METHOD 11/07/2024 4:43 PM [facility] Comment:Calculation based on the??Chronic Kidney Disease Epidemiology Collaboration (CKD-EPI) equation refit??without adjustment for race. BUN/Creatinine Ratio 17.1 LAB CHEMISTRY METHOD 11/07/2024 4:43 PM [facility] Calcium 10.0 8.5 - 10.5 mg/dL LAB CHEMISTRY METHOD 11/07/2024 4:43 PM [facility] AST (SGOT) 22 10 - 42 unit/L LAB CHEMISTRY METHOD 11/07/2024 4:43 PM [facility] ALT (SGPT) 55 10 - 60 unit/L LAB CHEMISTRY METHOD 11/07/2024 4:43 PM [facility] Alkaline Phosphatase 92 42 - 121 unit/L LAB CHEMISTRY METHOD 11/07/2024 4:43 PM [facility] Total Protein 7.4 6.0 - 8.0 g/dL LAB CHEMISTRY METHOD 11/07/2024 4:43 PM [facility] Albumin 4.3 3.2 - 5.0 g/dL LAB CHEMISTRY METHOD 11/07/2024 4:43 PM [facility] Total Bilirubin 0.5 0.0 - 1.4 mg/dL LAB CHEMISTRY METHOD 11/07/2024 4:43 PM [facility] Blood Venous blood specimen / Unknown Venipuncture / Unknown 11/07/2024 1:56 PM EST 11/07/2024 1:56 PM EST Wilian JONES LAB BLOOD ORDERABLES Viri ayala Result [facility] [address] [place] [address], [place] [phone] * Thyroid stimulating hormone with reflex to free t4 and free t3 (09/30/2024 4:20 PM EST) TSH 1.03 0.40 - 4.00 mcIU/mL LAB CHEMISTRY METHOD 09/30/2024 10:18 PM EST [facility] Blood Venous blood specimen / Unknown Venipuncture / Unknown 09/30/2024 4:20 PM EST 09/30/2024 4:20 PM EST Wilian JONES LAB BLOOD ORDERABLES Viri l Result Performing Organization Address [facility]/State/ZIP Co de Phone Number [facility] [address] [place] [address], * (ABNORMAL) Lipid panel with reflex to direct LDL (09/30/2024 4:20 PM EST) Cholesterol 210(H) 0 - 200 mg/dL LAB CHEMISTRY METHOD 09/30/2024 10:14 PM EST [facility] Triglycerides 218(H) 0 - 150 mg/dL LAB CHEMISTRY METHOD 09/30/2024 10:14 PM [facility] HDL 58 >=40 mg/dL LAB CHEMISTRY METHOD 09/30/2024 10:14 PM [facility] LDL Calculated 108(H) 0 - 100 mg/dL LAB CHEMISTRY METHOD 09/30/2024 10:14 PM EST [facility] VLDL Cholesterol Ivan 43.6 mg/dL LAB CHEMISTRY METHOD 09/30/2024 10:14 PM EST [facility] Non HDL Chol. (LDL+VLDL) 152(H) <145 mg/dL LAB CHEMISTRY METHOD 09/30/2024 10:14 PM EST [facility] Chol/HDL Ratio 3.6 0.0 - 4.4 LAB CHEMISTRY METHOD 09/30/2024 10:14 PM EST [facility] Blood Venous blood specimen / Unknown Venipuncture / Unknown 09/30/2024 4:20 PM EST 09/30/2024 4:20 PM EST us Wilian JONES LAB BLOOD ORDERABLES Viri l Result [facility] [address] [place] [address], * SCREENING MAMMOGRAPHY BI 2-VIEW BREAST INC [...] IMG XR PROCEDURES Final R esult * Hepatitis C Screening (09/21/2023) Pathologist [facility] Hepatitis C Screening abstracted Historical Provider HEALTH MAINTENANCE Final Result * Colonoscopy (09/19/2022) Pathologist [facility] Colonoscopy no interpretation , abstracted Anatomical Region Laterality Modality Other [facility] Provider HEALTH MAINTENANCE Final Result * Cervical Cancer Screening: HPV (08/02/2021) [facility] Cervical Cancer Screening: HPV negative, abstracted Historical Provider HEALTH MAINTENANCE Final Result from Last 3 Months or Most Recently Relevant to Health Maintenance Insurance Care Teams Pedicab Driver Relationship Specialty Start Date End Date Wilian Tsang PA [address] [place] [id number] PCP - General Internal Medicine 09/12/24
--- OUTSIDE RECORDS SUMMARY | 2024-12-12 17:18 | XMS_ITS | Data Portability ---
Author Organization [facility], [id number] Address [address] [place] [address] Care Team Providers Care Film Recordist Name Role Phone ARA GONZALEZ Referring Provider Assessment Encounter Date Assessment Date Assessment LastModified [...] record and interviewing and examining the patient. [email or web address] Not available 08/26/2024 14:20:26 10/10/2024 10/10/2024 58-year-old with occipital neuralgia. The patient will be issued a prescription for Lyrica 50 mg twice a day. She will take it if her symptoms return. I spent 26 minutes reviewing the record and interviewing and examining the patient. [email or web address] Not available 10/10/2024 13:15:12 Plan of Treatment [...] contr ast No observ ation record ed. [email or web address] Not Available 2023 08:32:45 08/26/20 24 05/18/2024 XR, neck No observ ation record ed. [email or web address] Not Available 2023 08:35:24 Result Notes None recorded. Problems Name Problem SNOMED Code Status Onset Date Resolution Date Notes Provider Name and Address Organization Details Recorded Time Asthma 776143184 Active 2023 Dodie Fox null, [facility] 4 07:48:13 Fibromyalg ia 152088452 Active 2023 Dodie Chung null, [facility] 4 07:48:23 Osteoarthr itis 282846674 Active 2023 [facility] 4 07:48:49 Hyperlipid emia 18065938 Active 2023 [facility] 4 07:48:59 Hypertensi ve disorder 55368296 Active 2023 [facility] 4 07:49:07 Hypothyroi dism 16874645 Active 2023 [facility] 4 07:49:14 Idiopathic scoliosis 592813633 Active 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 [facility] 4 07:51:01 Arthritis 4324229 Active 2023 [facility] 4 07:51:22 Low back pain 136807175 Active 2023 [facility] 4 07:51:29 Migraine 90056600 Active 2023 [facility] 4 07:51:35 Neck pain 32822643 Active 2023 [facility] 4 07:51:41 Pain of right shoulder region Active 2023 Dodie Chung [facility] 4 07:52:00 Spinal stenosis 31639547 Active 2023 Dodie Chung [facility] 4 07:52:18 Thyroid nodule 410981930 Active 2023 Dodie Chung [facility] 4 07:52:28 Gastroesop hageal reflux disease 451949050 Active 2023 Dodiejeremi Chung [facility] 4 08:01:56 Problem Notes None recorded. Procedures Surgical History Date Name Laterality Status Provider Name and Address Organization Details Recorded Time excision of ganglion cyst of wrist completed [facility] 08/26/2024 08:02:41 excision of aberrant tissue of breast completed [facility] 08/26/2024 08:03:18 colonoscopy completed [facility] 08/26/2024 08:03:26 lumpectomy of breast completed [facility] 08/26/2024 08:03:36 excision of papilloma completed [facility] 08/26/2024 08:04:00 laparoscopy completed [facility] 08/26/2024 08:04:21 cholecystectomy completed [facility] 08/26/2024 08:04:32 percutaneous needle biopsy of breast completed [facility] 08/26/2024 08:04:56 Imaging Results Imaging Date Name Status LastModified by Organiz ation Details LastModified Time 05/25/2024 MRI, brain, w/o contrast completed [email or web address] Information not available 08/26/2024 08:32:45 05/18/2024 XR, neck completed [email or web address] Information no t available 08/26/2024 08:35:24 Procedure Notes None recorded. Medical Equipment None Reported. Allergies Allergen ID Allergen Name Allergen Category Reaction Reaction Severity Criticality Documentation Date Start Date Code Code System Note Provider Name and Address Organization Details Recorded Time 2420 honey bee venom medicatio n Not available Not available Not available 08/26/2024 63517 7 RxNorm Dodie Chung berta [facility] 4 07:46:52 Medications Name Sig Start Date [...] Updated DateTime 4 162.56 cm 29.5 kg/m2 02741.8 9 g 62 /min 99 % 99 % 98 [degF] 166 mm[Hg] 84 mm[Hg] Dodie [facility] 4 13:47:56 Date Recorded Body height Body mass index (BMI) Body weight Heart rate Oxygen saturation Oxygen saturation in Arterial blood by Pulse oximetry Body temperature Systolic blood pressure Diastolic blood pressure Provider Name and Address Organization Details Last Updated DateTime 5 162.56 cm 28.3 kg/m2 11505.7 4 g 65 /min 99 % 99 % 98 [degF] 147 mm[Hg] 73 mm[Hg] Dodie [facility] 5 12:56:15 Social History Question Answer Notes LastModified by Organizat ion Details LastModified Time When Did The Pain Begin? 03/14/2024 [email or web address] Information not available 08/26/2024 How Did It Start? Insulating Attic And Started Agrivating Symptoms [email or web address] Information not available 08/26/2024 Where Do You Feel The Pain? Neck, Low Back [email or web address] Information not available 08/26/2024 Has The Pain Changed Since It Began? Yes [email or web address] Information not available 08/26/2024 What Makes The Pain Worse? Sneezing, Coughing, Bending Down [email or web address] Information not available 08/26/2024 What Makes The Pain Better? No [email or web address] Information not available 08/26/2024 What Treatment Have You Tried Thus Far? (PT, Surgery, Injections) Low Back: Steroid Injections Previously [email or web address] Information not available 08/26/2024 What Type Of Relief From Treatment Did You Receive And For How Long? Full Relief For Years [email or web address] Information not available 08/26/2024 List Of Pain Medication(s) That You Have Tried In The Past: [place], Lidocane Patches, Alieve, Advil [email or web address] Information not available 08/26/2024 Is The Pain: Always Present [email or web address] Informat ion not available 08/26/2024 On A Scale Of 0-10 Rate Your Pain When It Is At It's Worst: 10 [email or web address] Information not available 08/26/2024 On A Scale Of 0-10 Rate Your Pain When It Is Usually: 7 [email or web address] Information not available 08/26/2024 On A Scale Of 0-10 Rate Your Pain When It Is At It's Least: 4 [email or web address] Information not available 08/26/2024 Sex: Female Functional Status None recorded. Mental Status None recorded. Family History Nothing Reported. Medical History Condition Response Diabetes N Allergies/Hayfever N Anxiety N Hernia Y Head Trauma/Injury N Acid Reflux (GERD) Y Migraines Y Depression N Asthma Y Substance Use N Back Injury Y Ulcers N Hypertension Y Gynecological HistoryNo gynecological history recorded. Obstetrics History GPAL:G 0 P 0 0 0 0 Past Encounters Encounter ID Performer Location Encounter Start Date Encounter Closed Date Diagnosis/Indication Diagnosis SNOMED-CT Code Diagnosis ICD10 Code Diagnosis Note [id number] Rocky Ibanez MD [id number] [address] [place] [address] 08/26/2024 13:41:34 08/26/2024 14:20:45 [id number] Rocky Ibanez MD [id number] [facility] [address] [place] [phone] 10/10/2024 12:52:00 10/10/2024 13:16:32 Cervico-occipital neuralgia 64593079 M54.81 Health Concerns Section Related Observation LastModified by Organization Detai ls LastModified Time None Recorded Concern Status LastModified by Organization Details LastModified Time None Recorded Advance Directives Directive None Recorded Payers Encounter Date Sequence Insurance Name Policy Number Policy Meehan Covered Member ID Meehan Member ID Guarantor Name 08/26/2024 1 [facility] [id number] Vonda Ayala [id number] Vonda Jamie 10/10/2024 1 [facility] [id number] Vnoda Jamie [id number] Vonda Jamie Notes Date Note Type Note [...] takes Aleve or Advil. She has tried [place] balm, Arnica with lidocaine, heat, and cold. She has tried methocarbamol and diclofenac. None of which helped. She is reluctant to go to physical therapy because anyone touching her neck aggravates her pain significantly. MRI of the brain was unremarkable. C-spine films showed mild DJD and muscle spasm. Rocky Ibanez MD [facility] [place] [facility] 08/26/2024 14:20:43 10/10/2024 text/html The patient [...] phenomenon has been terminated. Rocky Ibanez MD [facility] 10/10/2024 13:15:41 OBGyn Episode No OBEpisode recorded.
== END 2024-12-12 15:21 | disposition home or self-care (01) ==
LOC: HO.HMGCX 15:20
PROVIDERS: PCP Physician Assistant Medical; Visit Provider Nurse Practitioner Family
DX: R31.9 Hematuria, unspecified (principal)
CPT/HCPCS: 76770

== ENCOUNTER → 2024-12-12 15:22 | Outpatient (BNV) | payer OTHER, SELFPAY | PROVIDERS: PCP Physician Assistant Medical; Visit Provider Radiology Diagnostic Radiology | DX: N28.1 Cyst of kidney, acquired (principal) | CPT/HCPCS: 76770 ==

== ENCOUNTER 2024-12-27 14:30 | Outpatient (AMB) | payer OTHER, SELFPAY ==
--- NOTE | 2024-12-27 14:41 | MHC.OFFWIV ---
Intake Vital Signs 12/27/24 14:46 Weight 170 lb BP 118/70 Blood Pressure Location Rt brachial Position Sitting Pulse 77 Pulse Source Pulse Oximeter Temp 98.7 F Temp Source Oral Pulse Oximetry (%) 99 Oxygen Delivery Method Room Air Intake Visit Reasons: EP Diverticulitis pain? Intake Note: Patient here for diverticulitis flare up? Patient Tobacco Use Status: Never used Tobacco Allergies bees Allergy (Mild, Uncoded 12/27/24 14:47) Swelling Do you need a note to return to daycare/school/sports/work: No HPI HPI Comments History of Present Illness Details This is a 59-year-old female with a past medical history of cholecystectomy, hypothyroidism and hypertension presenting for evaluation of left lower quadrant abdominal pain that she has had for the past 1 day that worsened at approximately 3:00 a.m. today. Patient describes pain in his a aching sensation that does not radiate and she feels that her abdomen is distended. Patient's last meal was at approximately 11:00 a.m. today. She denies having any fevers, chills, nausea, vomiting, dysuria, urinary frequency, dark or bloody stools. Patient's last bowel movement was this afternoon prior to coming to the walk-in which she describes as normal caliber. Patient has had diverticulitis previously with reported bowel perforation. Patient has not taken any medication for treatment of her discomfort. [facility] Medical History Hypothyroid HTN (hypertension) Arthritis Fibromyalgia Social History Patient Tobacco Use Status: Never used Tobacco Review of Systems Const All systems reviewed & are unremarkable except as noted in HPI and below Eyes Reports no additional complaints ENT Reports no additional complaints Card Reports no additional complaints Resp Reports no additional complaints GI Reports no additional complaints, Reports abdominal pain (LLQ), Denies melena, Denies excessive flatus, Denies heartburn, Denies diarrhea, Denies nausea, Denies vomiting and Reports other (feels distended) Reports no additional complaints Musc Reports no additional complaints Skin/Breast Reports system reviewed and no additional complaints, except as documented Neuro Reports no additional complaints Psych Reports no additional complaints Endo Reports no additional complaints Cash/Lymph Reports no additional complaints Aller/Immun Reports no additional complaints Physical Exam Vital Signs: Last Vital Signs Temp 98.7 F 12/27/24 14:46 Pulse 77 12/27/24 14:46 BP 118/70 12/27/24 14:46 Pulse Ox 99 12/27/24 14:46 Oxygen Delivery Method Room Air 12/27/24 14:46 Const General: cooperative, healthy appearing, comfortable, no acute distress, well developed, alert and awake Nutritional Appearance: well nourished Orientation/consciousness: patient oriented x3 Limitations: no limitations Cardio Rate: regular rate Rhythm: regular rhythm GI Inspection: Yes normal to inspection Palpation (GI): Soft to palpation and Tenderness to palpation present (GI) in the LLQ (with guarding) and suprapubicly (mild) Auscultation: normal bowel sounds General: Yes Bimanual renal exam normal bilaterally and No CVA tenderness Back/Spine/Pelvis Back: No CVA tenderness Skin General skin exam: no rashes or lesions noted Neuro General: patient oriented x3 Psych Appearance: grossly normal Mental Status: mental status grossly normal Insight: Good insight present (Psych) Judgement: Good judgement present (Psych) Assessment & Plan Assessment & Plan (1) LLQ abdominal pain: Comment: Patient is evaluated. She is afebrile and in mild discomfort. Patient does have left lower quadrant abdominal pain and denies any dysuria, urinary frequency or hematuria. I have discussed this patient's past history of diverticulitis including bowel perforation and recommended that she go to the emergency department if her symptoms worsen. At this time, patient will be instructed to use Tylenol or ibuprofen for her discomfort and take Augmentin twice daily. Code(s): R10.32 - Left lower quadrant pain Plan: Augmentin twice daily, go to emergency department immediately if symptoms worsen. Patient is in agreement with this plan of care and will use Tylenol or ibuprofen as needed. Medications: New amoxicillin-pot clavulanate 500-125 mg (Augmentin) 1 tab PO Q12H 20 tabs 0RF Coding Level of Care Code Est Pt Level 3 (91200) Diagnoses LLQ abdominal pain R10.32 Time Spent (min) 20
[2024-12-27 14:46] VITALS: BP 118/70; PULSE 77; TEMP 37.1; O2SAT 99
--- OUTSIDE RECORDS SUMMARY | 2024-12-27 17:44 | XMS_ITS | Clinical Summary ---
Author Organization [facility] [address] [place] [address] [place] [phone] Phone Care Team Providers Care Lump Roller Name Role Phone Wilian Tsang Primary Care Provider [phone] Allergies Active Allergy Reactions Criticality Noted Date [...] 11/30/2024 3:00 PM EDT Consult Gastroenterology - [place] 175 [facility] 175 [facility] [address] [place] [phone] Ranjeet Lacey MD Heartburn (Primary Dx); RUQ pain; Bowel disease; History of laparoscopic cholecystectomy 11/18/2024 Telephone Adult Medicine [address] [phone] Wilian Tsang PA 11/15/2024 2:56 PM EST - 11/15/2024 11:59 PM EST Hospital Encounter Radiology Department - [address] [phone] RUQ pain; Bowel disease Discharge Disposition: Home or Self Care 11/07/2024 1:00 PM EST Office Visit Adult Medicine [address] [phone] Wilian Tsang PA RUQ pain (Primary Dx); Bowel disease from Last 3 Months Immunizations Name Administration [...] Site/Laterality Comments WRIST MASS EXCISION Left PROCEDURE: MT EXCISION GANGLION WRIST DORSAL/VOLAR PRIMARY OTHER SURGICAL HISTORY 06/2009 PROCEDURE: MT EXC CYST/ABERRANT BREAST TISSUE OPEN / LESION; COMMENT: benign COLONOSCOPY 2016 PROCEDURE: HISTORICAL COLONOSCOPY; COMMENT: diverticulosis; no polyps BREAST SURGERY Right PROCEDURE: MT UNLISTED PROCEDURE BREAST; COMMENT: lumpectomy BREAST SURGERY 09/2015 Left PROCEDURE: MT UNLISTED PROCEDURE BREAST; COMMENT: papilloma CHOLECYSTECTOMY 06/2019 PROCEDURE: LAPAROSCOPY, CHOLECYSTECTOMY BREAST BIOPSY PROCEDURE: BX BREAST; PERC NEEDLE CORE W/IMAG GUID; COMMENT: b/l bxs-benign CHOLECYSTECTOMY PROCEDURE: MT LAPAROSCOPY SURG CHOLECYSTECTOMY Medical History Medical History [...] Care Team (Late st Contact Info) Description 12/29/2024 3:20 PM EDT Appointment Radiology Department - [address] [phone] 02/02/2025 3:00 PM EDT Office Visit Gastroenterology - [place] 175 [facility] [address] [phone] Ranjeet Lacey MD [address] [facility] 200 [place] [address] 02/21/2025 3:30 PM EDT Office Visit Adult Medicine [address] [phone] Wilian Tsang PA [address] [place] [address] Health Maintenance Due Date Last Done Comments [...] , 07/28/2021, Additional history exists RSV Immunization Adult Patients Completed 10/31/2024 HIB Vaccines Aged Out No [...] age to complete this topic Meningococcal B Vaccine Aged Out No l onger eligible based on patient's age to complete this topic RSV Immunization Patients Under 20 months Aged Out No longer eligible based on patient's age to complete this topic Varicella Vaccines Aged Out No longer eligible based on patient's age to complete this topic Procedures Procedure Name Priority Date/Time Associated Diagnosis Comments EXTERNAL ULTRASOUND REPORT 12/12/2024 EXTERNAL ULTRASOUND REPORT 12/12/2024 MR ABDOMEN WO CONTRAST MRCP Routine 11/15/2024 [...] Recently Relevant to Health Maintenance Results * External Ultrasound Report (12/12/2024) Only the most recent of2 resultswithin the time period is included. Anatomical Region Laterality Modality Ultrasound us Provider [facility] US PROCEDURES Final Result * MR Abdomen wo Contrast MRCP (11/15/2024 3:37 PM EST) Anatomical Region Laterality Modality Body Magnetic Resonan ce 11/15/2024 10:3 5 PM EST Impressions 11/17/2024 8:29 PM EST 2 very small cystic-appearing pancreatic lesions which could represent IPMN. ??Recommend follow-up pancreatic MRI in 6-12 months. Minimal hepatic steatosis. POS [id number] -------- FINAL REPORT -------- Dictated By: Karina Contreras Dictated Date: 11/15/2024 22:35 ET Assigned Physician: Karina Contreras Reviewed and Electronically Signed By: Karina Contreras Signed Date: 11/17/2024 20:29 ET Workstation ID: [id number] Transcribed By: Self Edit Transcribed Date: 11/15/2024 [...] in 6-12 months. Minimal hepatic steatosis. POS [id number] -------- FINAL REPORT -------- Dictated By: Karina Contreras Dictated Date: 11/15/2024 22:35 ET Assigned Physician: Karina Contreras Reviewed and Electronically Signed By: Karina Contreras Signed Date: 11/17/2024 20:29 ET Workstation ID: [id number] Transcribed By: Self Edit Transcribed Date: 11/15/2024 22:59 ET Wilian JONES IM MRI PROCEDURES Final Result * Helicobacter pylori antigen, stool (11/10/2024 2:38 PM EST) Helicobacter Pylori Ag Not detected Not detected 11/15/2024 2:34 PM EST [facility] Comment: This test was performed at [facility] using a chemiluminescent immunoassay [...] Food and Drug Administration. Test performed at [facility], [address] , [place], [place] ??[address] ? [phone] Edie Long MD, PhD - Social Secretary Stool Rectum structure / Unknown Non-blood Collection / Unknown 11/10/2024 2:38 PM EST 11/10/2024 2:38 PM EST Wilian JONES LAB BODY FLUIDS AND STOOL S ORDERABLES Final Result [facility] [address] [place] [address] * (ABNORMAL) CBC auto differential (11/07/2024 1:56 PM EST) WBC 9.3 4.8 - 10.8 K/mcL LAB HEMETOLOGY METHOD 11/07/2024 4:[address] [facility] RBC 4.80 3.80 - 4.80 M/mcL LAB HEMETOLOGY METHOD 11/07/2024 4:[address] [facility] Hemoglobin 13.9 11.5 - 16.0 g/dL LAB HEMETOLOGY METHOD 11/07/2024 4:[address] [facility] Hematocrit 43.7 35.0 - 47.0 % LAB HEMETOLOGY METHOD 11/07/2024 4:[address] [facility] MCV 90.7 79.0 - 98.0 FL LAB HEMETOLOGY METHOD 11/07/2024 4:[address] [facility] MCH 28.8 27.0 - 32.0 pcg LAB HEMETOLOGY METHOD 11/07/2024 4:[address] [facility] MCHC 31.8(L) 32.0 - 37.0 g/dL LAB HEMETOLOGY METHOD 11/07/2024 4:[address] [facility] RDW 12.6 11.0 - 15.0 % LAB HEMETOLOGY METHOD 11/07/2024 4:[address] [facility] Platelets 307 130 - 400 K/mcL LAB HEMETOLOGY METHOD 11/07/2024 4:[address] [facility] MPV 11.8(H) 7.0 - 11.0 FL LAB HEMETOLOGY METHOD 11/07/2024 4:[address] [facility] NRBC 0.0 <1.0 % LAB HEMETOLOGY METHOD 11/07/2024 4:[address] [facility] NRBC Absolute 0.00 <0.10 K/mcL LAB HEMETOLOGY METHOD 11/07/2024 4:[address] [facility] Neutrophils Relative 58.3 % LAB HEMETOLOGY METHOD 11/07/2024 4:[address] [facility] Lymphocytes Relative 30.3 % LAB HEMETOLOGY METHOD 11/07/2024 4:[address] [facility] Monocytes Relative 8.5 % LAB HEMETOLOGY METHOD 11/07/2024 4:[address] [facility] Eosinophils Relative 1.8 % LAB HEMETOLOGY METHOD 11/07/2024 4:[address] [facility] Basophils Relative 0.8 % LAB HEMETOLOGY METHOD 11/07/2024 4:[address] [facility] Immature Granulocytes Relative 0.3 % LAB HEMETOLOGY METHOD 11/07/2024 4:[address] [facility] Neutrophils Absolute 5.41 1.50 - 7.00 K/mcL LAB HEMETOLOGY METHOD 11/07/2024 4:[address] [facility] Lymphocytes Absolute 2.81 1.00 - 5.00 K/mcL LAB HEMETOLOGY METHOD 11/07/2024 4:43 PM EST [facility] Monocytes Absolute 0.79 0.20 - 1.00 K/mcL LAB HEMETOLOGY METHOD 11/07/2024 4:43 PM EST [facility] Eosinophils Absolute 0.17 0.00 - 0.50 K/mcL LAB HEMETOLOGY METHOD 11/07/2024 4:43 PM EST [facility] Basophils Absolute 0.07 0.00 - 0.20 K/mcL LAB HEMETOLOGY METHOD 11/07/2024 4:43 PM EST [facility] Immature Granulocytes Absolute 0.03 0.00 - 0.03 K/mcL LAB HEMETOLOGY METHOD 11/07/2024 4:[address] [facility] Blood Venous blood specimen / Unknown Venipuncture / Unknown 11/07/2024 1:56 PM EST 11/07/2024 1:56 PM EST Wilian Tsang [place] LAB BLOOD ORDERABLES Viri l Result [facility] [address] [place] [address], [place] [phone] * Lipase (11/07/2024 1:56 PM EST) [facility] Lipase 43 13 - 75 unit/L LAB CHEMISTRY METHOD 11/07/2024 4:43 PM EST [facility] Blood Venous blood specimen / Unknown Venipuncture / Unknown 11/07/2024 1:56 PM EST 11/07/2024 1:56 PM EST Wilian Tsang [place] LAB BLOOD ORDERABLES Viri l Result [facility] [address] [place] [address], [place] [phone] * GGT (11/07/2024 1:56 PM EST) GGT 44 7 - 64 unit/L LAB CHEMISTRY METHOD 11/07/2024 4:[address] [facility] Blood Venous blood specimen / Unknown Venipuncture / Unknown 11/07/2024 1:56 PM EST 11/07/2024 1:56 PM EST us Wilian JONES LAB BLOOD ORDERABLES Viri ayala Result [facility] [address] [place] [address], [place] [phone] * Comprehensive metabolic panel (11/07/2024 1:56 PM EST) Only the most recent of2 resultswithin the time period is included. [facility] Sodium 139 133 - 145 mmol/L LAB CHEMISTRY METHOD 11/07/2024 4:[address] [facility] Potassium 4.0 3.5 - 5.5 mmol/L LAB CHEMISTRY METHOD 11/07/2024 4:[address] [facility] Chloride 102 96 - 110 mmol/L LAB CHEMISTRY METHOD 11/07/2024 4:[address] [facility] CO2 32 21 - 32 mmol/L LAB CHEMISTRY METHOD 11/07/2024 4:[address] [facility] Anion Gap 5 3 - 11 LAB CHEMISTRY METHOD 11/07/2024 4:[address] [facility] Glucose 85 70 - 100 mg/dL LAB CHEMISTRY METHOD 11/07/2024 4:[address] [facility] BUN 14 5 - 25 mg/dL LAB CHEMISTRY METHOD 11/07/2024 4:[address] [facility] Creatinine 0.82 0.50 - 1.10 mg/dL LAB CHEMISTRY METHOD 11/07/2024 4:[address] [facility] eGFR 82 >=60 mL/min/1. 73m2 LAB CHEMISTRY METHOD 11/07/2024 4:[address] [facility] Comment:Calculation based on the??Chronic Kidney Disease Epidemiology Collaboration (CKD-EPI) equation refit??without adjustment for race. BUN/Creatinine Ratio 17.1 LAB CHEMISTRY METHOD 11/07/2024 4:[address] [facility] Calcium 10.0 8.5 - 10.5 mg/dL LAB CHEMISTRY METHOD 11/07/2024 4:[address] [facility] AST (SGOT) 22 10 - 42 unit/L LAB CHEMISTRY METHOD 11/07/2024 4:[address] [facility] ALT (SGPT) 55 10 - 60 unit/L LAB CHEMISTRY METHOD 11/07/2024 4:[address] [facility] Alkaline Phosphatase 92 42 - 121 unit/L LAB CHEMISTRY METHOD 11/07/2024 4:[address] [facility] Total Protein 7.4 6.0 - 8.0 g/dL LAB CHEMISTRY METHOD 11/07/2024 4:[address] [facility] Albumin 4.3 3.2 - 5.0 g/dL LAB CHEMISTRY METHOD 11/07/2024 4:[address] [facility] Total Bilirubin 0.5 0.0 - 1.4 mg/dL LAB CHEMISTRY METHOD 11/07/2024 4:[address] [facility] Blood Venous blood specimen / Unknown Venipuncture / Unknown 11/07/2024 1:56 PM EST 11/07/2024 1:56 PM EST us Wilian JONES LAB BLOOD ORDERABLES Viri l Result [facility] [address] [place] [address], * Thyroid stimulating hormone with reflex to free t4 and free t3 (09/30/2024 4:20 PM EST) TSH 1.03 0.40 - 4.00 mcIU/mL LAB CHEMISTRY METHOD 09/30/2024 10:18 PM EST [facility] Blood Venous blood specimen / Unknown Venipuncture / Unknown 09/30/2024 4:20 PM EST 09/30/2024 4:20 PM EST Wilian JONES LAB BLOOD ORDERABLES Viri l Result [facility] [address] [place] [address], [place] [phone] * (ABNORMAL) Lipid panel with reflex to direct LDL (09/30/2024 4:20 PM EST) Cholesterol 210(H) 0 - 200 mg/dL LAB CHEMISTRY METHOD 09/30/2024 10:14 PM EST [facility] Triglycerides 218(H) 0 - 150 mg/dL LAB CHEMISTRY METHOD 09/30/2024 10:[address] [facility] HDL 58 >=40 mg/dL LAB CHEMISTRY METHOD 09/30/2024 10:14 PM EST [facility] LDL Calculated 108(H) 0 - 100 mg/dL LAB CHEMISTRY METHOD 09/30/2024 10:[address] [facility] VLDL Cholesterol Ivan 43.6 mg/dL LAB CHEMISTRY METHOD 09/30/2024 10:[address] [facility] Non HDL Chol. (LDL+VLDL) 152(H) <145 mg/dL LAB CHEMISTRY METHOD 09/30/2024 10:14 PM EST [facility] Chol/HDL Ratio 3.6 0.0 - 4.4 LAB CHEMISTRY METHOD 09/30/2024 10:[address] [facility] Blood Venous blood specimen / Unknown Venipuncture / Unknown 09/30/2024 4:20 PM EST 09/30/2024 4:20 PM EST Wilian JONES LAB BLOOD ORDERABLES Viri l Result [facility] [address] [place] [address], * SCREENING MAMMOGRAPHY BI 2-VIEW BREAST INC [...] Hepatitis C Screening (09/21/2023) Pathologist [facility] Hepatitis C Screening abstracted Historical Provider HEALTH MAINTENANCE Final Result * Colonoscopy (09/19/2022) [facility] Colonoscopy no interpretation , abstracted Anatomical Region Laterality Modality Other [facility] Provider HEALTH MAINTENANCE Final Result * Cervical Cancer Screening: HPV (08/02/2021) [facility] Cervical Cancer Screening: HPV negative, abstracted Historical Provider HEALTH MAINTENANCE Final Result from Last 3 Months or Most Recently Relevant to Health Maintenance Insurance Care Teams Lump Roller Relationship Specialty Start Date End Date Wilian Tsang PA [address] [place] [address] PCP - General Internal Medicine 09/12/24
--- OUTSIDE RECORDS SUMMARY | 2024-12-27 17:44 | XMS_ITS | Data Portability ---
Author Organization [facility], [id number] Address [address] [place] [address] Care Team Providers Care Waterworks Supervisor Name Role Phone ARA GONZALEZ Referring Provider [phone] Assessment Encounter Date Assessment Date Assessment LastModified [...] record and interviewing and examining the patient. [email or web address] Not available 08/26/2024 14:20:26 10/10/2024 10/10/2024 58-year-old with occipital neuralgia. The patient will be issued a prescription for Lyrica 50 mg twice a day. She will take it if her symptoms return. I spent 26 minutes reviewing the record and interviewing and examining the patient. [email or web address] Not available 10/10/2024 13:15:12 Plan of Treatment [...] contr ast No observ ation record ed. [email or web address] Not Available 2023 08:32:45 08/26/20 24 05/18/2024 XR, neck No observ ation record ed. [email or web address] Not Available 2023 08:35:24 Result Notes None recorded. Problems Name Problem SNOMED Code Status Onset Date Resolution Date Notes Provider Name and Address Organization Details Recorded Time Asthma 465016955 Active 2023 Dodie Fox null, [facility] 4 07:48:13 Fibromyalg ia 816656930 Active 2023 Dodie Chung null, [facility] 4 07:48:23 Osteoarthr itis 032494936 [facility] 07:[facility]49 Hyperlipid emia 25984931 [facility]23 [facility] 4 07:48:59 Hypertensi ve disorder 25564528 Active 2023 [facility] 4 07:49:07 Hypothyroi dism 28284382 [facility]23 [facility] 4 07:49:14 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 [facility] 4 07:51:01 Arthritis 2810348 Active 2023 [facility] 4 07:51:22 Low back pain 396401347 Active 2023 [facility] 4 07:51:29 Migraine 12315365 Active 2023 [facility] 4 07:51:35 Neck pain 96446976 Active 2023 [facility] 4 07:51:41 Pain of right shoulder region Active 2023 Dodie Chung [facility] 4 07:52:00 Spinal stenosis 73136774 Active 2023 Dodie Chung [facility] 4 07:52:18 Thyroid nodule 400556303 Active 2023 Dodie Chung [facility] 4 07:52:28 Gastroesop hageal reflux disease 025248669 Active 2023 Dodiejeremi Chung [facility] 4 08:01:56 Problem Notes None recorded. Procedures Surgical History Date Name Laterality Status Provider Name and Address Organization Details Recorded Time excision of ganglion cyst of wrist completed [facility] 08/26/2024 08:02:41 excision of aberrant tissue of breast completed [facility] 08/26/2024 08:03:18 [place]oscopy [place] [facility] [place]26/2024 08:03:26 lumpectomy of breast completed [facility] 08/26/2024 08:03:36 excision of papilloma completed [facility] 08/26/2024 08:04:00 [place] [facility] [place]/2024 08:04:21 cholecystectomy completed [facility] 08/26/2024 08:04:32 percutaneous needle biopsy of breast completed [facility] 08/26/2024 08:04:56 Imaging Results Imaging Date Name Status LastModified by Organiz ation Details LastModified Time 05/25/2024 MRI, brain, w/o contrast completed [email or web address] Information not available 08/26/2024 08:32:45 05/18/2024 XR, neck completed [email or web address] Information no t available 08/26/2024 08:35:24 Procedure Notes None recorded. Medical Equipment None Reported. Allergies Allergen ID Allergen Name Allergen Category Reaction Reaction Severity Criticality Documentation Date Start Date Code Code System Note Provider Name and Address Organization Details Recorded Time 2420 honey bee venom medicatio n Not available Not available Not available 08/26/2024 42788 7 RxNorm Dodie Chung berta [facility] 4 07:46:52 Medications Name Sig Start [...] Updated DateTime 4 162.56 cm 29.5 kg/m2 04007.8 9 g 62 /min 99 % 99 % 98 [degF] 166 mm[Hg] 84 mm[Hg] [facility] 4 13:47:56 Date Recorded Body height Body mass index (BMI) Body weight Heart rate Oxygen saturation Oxygen saturation in Arterial blood by Pulse oximetry Body temperature Systolic blood pressure Diastolic blood pressure Provider Name and Address Organization Details Last Updated DateTime 5 162.56 cm 28.3 kg/m2 17337.7 4 g 65 /min 99 % 99 % 98 [degF] 147 mm[Hg] 73 mm[Hg] Dodie [facility] 5 12:56:15 Social History Question Answer Notes LastModified by Organizat ion Details LastModified Time When Did The Pain Begin? 03/14/2024 [email or web address] Information not available 08/26/2024 How Did It Start? Insulating Attic And Started Agrivating Symptoms [email or web address] Information not available 08/26/2024 Where Do You Feel The Pain? Neck, Low Back [email or web address] Information not available 08/26/2024 Has The Pain Changed Since It Began? Yes [email or web address] Information not available 08/26/2024 What Makes The Pain Worse? Sneezing, Coughing, Bending Down [email or web address] Information not available 08/26/2024 What Makes The Pain Better? No [email or web address] Information not available 08/26/2024 What Treatment Have You Tried Thus Far? (PT, Surgery, Injections) Low Back: Steroid Injections Previously [email or web address] Information not available 08/26/2024 What Type Of Relief From Treatment Did You Receive And For How Long? Full Relief For Years [email or web address] Information not available 08/26/2024 List Of Pain Medication(s) That You Have Tried In The Past: [place] Nixon, Lidocane Patches, Alieve, Advil [email or web address] Information not available 08/26/2024 Is The Pain: Always Present [email or web address] Informat ion not available 08/26/2024 On A Scale Of 0-10 Rate Your Pain When It Is At It's Worst: 10 [email or web address] Information not available 08/26/2024 On A Scale Of 0-10 Rate Your Pain When It Is Usually: 7 [email or web address] Information not available 08/26/2024 On A Scale Of 0-10 Rate Your Pain When It Is At It's Least: 4 [email or web address] Information not available 08/26/2024 Sex: Female Functional [...] Code Diagnosis Note [id number] Rocky Ibanez MD [id number] [facility] [address] [place] [address] 08/26/2024 13:41:34 08/26/2024 14:20:45 [id number] Rocky Ibanez MD [id number] [facility] [address] [place] [address] 10/10/2024 12:52:00 10/10/2024 13:16:32 Cervico-occipital neuralgia 02686459 M54.81 Health Concerns Section Related Observation LastModified by Organization Detai ls LastModified Time None Recorded Concern Status LastModified by Organization Details LastModified Time None Recorded Advance Directives Directive None Recorded Payers Encounter Date Sequence Insurance Name Policy Number Policy Meehan Covered Member ID Meehan Member ID Guarantor Name 08/26/2024 1 [facility] [id number] Vonda Ayala [id number] Vonda Jamie 10/10/2024 1 [facility] [id number] Vonda Jamie [id number] Vonda Jamie Notes Date Note Type Note [...] takes Aleve or Advil. She has tried [place] balm, Arnica with lidocaine, heat, and cold. She has tried methocarbamol and diclofenac. None of which helped. She is reluctant to go to physical therapy because anyone touching her neck aggravates her pain significantly. MRI of the brain was unremarkable. C-spine films showed mild DJD and muscle spasm. Rocky Ibanez MD [facility] [place] [facility] 08/26/2024 14:20:43 10/10/2024 text/html The [...] phenomenon has been terminated. Rocky Ibanez MD [facility] [place] [facility] 10/10/2024 13:15:41 OBGyn Episode No OBEpisode recorded.
== END 2024-12-27 15:27 | disposition home or self-care (01) ==
PROVIDERS: PCP Physician Assistant Medical; Visit Provider Physician Assistant
DX: R10.32 Left lower quadrant pain (principal)

== ENCOUNTER → 2024-12-27 14:30 | Outpatient (BNVA) | payer OTHER, SELFPAY | PROVIDERS: PCP Physician Assistant Medical; Visit Provider Physician Assistant ==

== ENCOUNTER 2024-12-27 17:16 | Emergency (ER) | payer OTHER, SELFPAY ==
--- NOTE | ~2024-12-27 | CT_ITS ---
CLINICAL HISTORY: LLQ pain, hx diverticulitis CT abdomen and pelvis with contrast Comparison: CT - CT ABDOMEN PELVIS W IV CON - 12/27/24 19:52 EDT Findings: Small hiatal hernia. Status post cholecystectomy. Mildly dilated CBD measuring 1.1 cm likely related to post cholecystectomy status. Solid organs are within normal limits. Moderate diverticulosis of the distal descending and sigmoid colon with moderate surrounding mesenteric stranding of the sigmoid colon. Pelvic contents unremarkable. Normal appendix. The bones are intact. IMPRESSION: Acute uncomplicated sigmoid diverticulitis. Small hiatal hernia. Status post cholecystectomy with mildly dilated CBD measuring 1.1 cm, likely related to post cholecystectomy status. This document has been electronically signed by: Alisa Arevalo MD on 12/27/2024 20:39:05
[2024-12-27 17:45] VITALS: BP 147/74; PULSE 67; RESP 16; TEMP 36.7; O2SAT 98; BMI 29.5
--- NOTE | 2024-12-27 17:51 | ED.GENADULT ---
HPI - General Adult General Chief complaint: Abdominal Pain Stated complaint: Abdominal pain/Sent from [facility] Time Seen by Provider: 12/27/24 19:15 Source: patient Limitations: no limitations History of Present Illness ED Provider: Ingrid Salomon PA-C HPI narrative: 59-year-old female with a history of fibromyalgia, osteoarthritis, hypertension, hypothyroidism, prior complex diverticulitis per her report, presents with left lower quadrant pain x1 day. Pain very focal to the left lower quadrant, described as severe cramping at times. The pain is nonradiating. Pain worse with ambulation and movement of the torso. Associated nausea, abdominal distention, and difficulty passing flatus. Patient states she can pass flatus. No fever or diarrhea. Related Data Home Medications ?Medication ?Instructions ?Recorded ?Confirmed omeprazole 40 mg capsule,delayed 40 mg PO DAILY 10/24/20 11/29/24 release propranolol 20 mg tablet mg PO 10/24/20 11/29/24 cyclosporine 0.05 % eye drops in a drp ophthalmic (eye) 10/06/23 11/29/24 dropperette (Restasis) epinephrine 0.3 mg/0.3 mL 1 mg IM DAILY 10/06/23 11/29/24 injection, auto-injector levothyroxine 125 mcg tablet 125 mcg PO DAILY 10/06/23 11/29/24 hydrochlorothiazide 12.5 mg tablet 25 mg PO DAILY 07/06/24 11/29/24 cholestyramine (with sugar) 4 gram 1 ea PO BID 12/27/24 powder for susp in a packet Previous Rx's ?Medication ?Instructions ?Recorded albuterol sulfate 90 mcg/actuation 1 inh inhalation QID PRN shortness 01/21/22 aerosol inhaler of breath or wheezing #6.7 grams amoxicillin 500 mg-potassium 1 tab PO Q12H #20 tabs 12/27/24 clavulanate 125 mg tablet (Augmentin) ciprofloxacin HCl 500 mg tablet 500 mg PO Q12H #13 tabs 12/27/24 metronidazole 500 mg tablet 500 mg PO Q8H #20 tabs 12/27/24 ondansetron HCl 4 mg tablet 4 mg PO Q8H PRN nausea and 12/27/24 vomiting #10 tabs oxycodone 5 mg tablet 5 mg PO Q6H PRN pain #12 tabs 12/27/24 Allergies Allergy/AdvReac Type Severity Reaction Status Date / Time bees Allergy Mild Swelling Uncoded 12/27/24 17:47 Review of Systems Review of Systems: Yes all other systems are reviewed and are negative Constitutional: Constitutional: Denies fatigue and Denies fever(s) Cardiovascular: Cardiovascular: Denies chest pain and Denies dyspnea Respiratory: Respiratory: Denies cough and Denies dyspnea Gastrointestinal: Gastrointestinal: Reports abdominal pain, Reports bloating, Reports GI cramping, Denies diarrhea, Reports nausea and Denies vomiting Endocrine: Endocrine: Denies fatigue [facility] Past Medical History Attestation statement: The following information was validated with the patient. Medical History Hypothyroid HTN (hypertension) Arthritis Fibromyalgia Social History Social History Patient Tobacco Use Status: Never used Tobacco Physical Exam ED Vital Signs: Vital Signs - 24 hr 12/27/24 17:45 12/27/24 19:47 12/27/24 20:15 Temperature 98.0 F Pulse Rate 67 Respiratory Rate 16 16 16 Blood Pressure 147/74 H Pulse Oximetry 98 Oxygen Delivery Method Room Air 12/27/24 21:13 12/27/24 21:32 Temperature 98.3 F 98.3 F Pulse Rate 65 65 Respiratory Rate 14 14 Blood Pressure 130/58 L 130/58 L Pulse Oximetry 96 96 Oxygen Delivery Method Room Air Room Air BMI result Body Mass Index 29.5 Const Other: Alert Orientation/consciousness: patient oriented x3 Resp Effort & Inspection: normal respiratory effort Cardio Other: Normal peripheral perfusion GI Other: Abdomen is soft, distended, moderate to severe tenderness left lower quadrant with moderate involuntary guarding Skin Other: Warm dry no rash Neuro General: patient oriented x3, gait normal, no focal motor deficits and CN's II-XI intact bilaterally Psych Other: Cooperative Course Course Course Narrative: RME: 59-year-old female presents to ED for left lower quadrant abdominal pain. Patient has history of peripheral diverticulitis in the past. Patient was seen yesterday at urgent care treated empirically with diverticulitis given antibiotics. Patient was recommended to go to the ED yesterday but refused. Today pain that is worsening. Positive for left lower quadrant tenderness on palpation. Labs ordered Medications Administered Discontinued Medications Generic Name Dose Route Start Last Admin Trade Name Jeanie PRN Reason Stop Dose Admin Sodium Chloride 1,000 mls @ 999 mls/hr 12/27/24 19:45 12/27/24 21:25 Ns IV 12/27/24 20:45 Infused .Q1H1M CARLOS Infusion Iohexol 100 ml 12/27/24 19:58 12/27/24 19:58 Iohexol 350 Mg/Ml 100 Ml Infus..Btl IV 12/27/24 19:59 85 ml ONCE ONE Administration Levofloxacin 750 mg 12/27/24 20:55 12/27/24 21:23 Levofloxacin 750 Mg Tablet PO 12/27/24 20:56 750 mg ONCE ONE Administration Metronidazole 500 mg 12/27/24 20:55 12/27/24 21:23 Metronidazole 500 Mg Tablet PO 12/27/24 20:56 500 mg ONCE ONE Administration Morphine Sulfate 4 mg 12/27/24 19:38 12/27/24 19:47 Morphine Sulfate 4 Mg/Ml Cartridge IVPUSH 12/27/24 19:39 4 mg ONCE ONE Administration Protocol Ondansetron HCl 4 mg 12/27/24 19:38 12/27/24 19:47 Ondansetron Hcl 4 Mg/2 Ml Vial IVPUSH 12/27/24 19:39 4 mg ONCE ONE Administration Medical Decision Making Medical Decision Making MDM Narrative: 59-year-old female with a history of fibromyalgia, osteoarthritis, hypertension, hypothyroidism, prior complex diverticulitis per her report, presents with left lower quadrant pain x1 day. Pain very focal to the left lower quadrant, described as severe cramping at times. The pain is nonradiating. Pain worse with ambulation and movement of the torso. Associated nausea, abdominal distention, and difficulty passing flatus. Patient states she can pass flatus. No fever or diarrhea. Problem: Prior complex diverticulitis History: Per patient I have considered the following differential diagnoses: Diverticulitis, bowel perforation, bowel obstruction, intra-abdominal abscess Plan: Patient's exam was concerning she is objectively distended, I am concerned for all the above, however she is passing flatus, she is not actively vomiting, perhaps bowel obstruction is less likely at this time. She could have another perforation or abscess formation. We will be obtaining a scan. Screening labs already obtained from triage. We will be giving Morphine Zofran and fluid. I have independently reviewed the following tests: Labs: Leukocytosis with left shift noted, not anemic, no other electrolyte abnormalities CT abdomen and pelvis:IMPRESSION: Acute uncomplicated sigmoid diverticulitis. Small hiatal hernia. Status post cholecystectomy with mildly dilated CBD measuring 1.1 cm, likely related to post cholecystectomy status. Lab Data 12/27/24 18:01 12/27/24 18:01 Labs: Lab Results 12/27/24 12/27/24 Range/Units 18:00 18:01 WBC 13.9 H (4.8-10.8) X10*3/uL RBC 4.69 (4.20-5.50) X10*6/uL Hgb 13.5 (12.0-16.0) g/dl Hct 40.4 (37.0-47.0) % MCV 86.1 (80.0-98.0) fL MCH 28.8 (27.0-33.0) pg MCHC 33.4 (31.0-35.0) g/dl RDW 13.2 (11.0-16.0) % Plt Count 290 (160-400) X10*3/uL MPV 10.7 (9.4-12.3) fL Immature Gran % (Auto) 0.4 (0.0-0.4) % Neut % (Auto) 77.9 H (45-73) % Lymph % (Auto) 14.6 L (20-40) % [place] % (Auto) 6.0 (2-11) % Eos % (Auto) 0.8 (0-4) % Baso % (Auto) 0.3 (0-2) % Lymph # (Auto) 2.0 (1.2-4.9) X10*3/uL [place] # (Auto) 0.8 (0.1-1.2) X10*3/uL Eos # (Auto) 0.1 (0.0-0.4) X10*3/uL Baso # (Auto) 0.0 (0.0-0.2) X10*3/uL Abs Immat Gran (auto) 0.05 H (0.00-0.03) X10*3/uL Absolute Neuts (auto) 10.9 H (2.0-8.3) x10*3/uL Absolute Nucleated RBC 0.000 (0.0-0.012) X10*3/uL Nucleated RBC % (auto) 0.0 (0.0-0.2) /100WBC Sodium 140 (135-145) mmol/L Potassium 3.6 (3.3-5.1) mmol/L Chloride 100 (96-108) mmol/L Carbon Dioxide 30 H (22-29) mmol/L Anion Gap 14 (12-20) BUN 13 (9-16) mg/dL Creatinine 0.71 (0.5-1.4) mg/dL Estim Creat Clear Calc 85.1 Estimated GFR > 60 Random Glucose 90 (60-115) mg/dL Calcium 9.6 (8.4-10.2) mg/dL Total Bilirubin 0.6 (0.0-1.0) mg/dL AST 36 H (5-31) U/L ALT 68 H (0-31) U/L Alkaline Phosphatase 93 (39-117) U/L Total Protein 7.0 (6.5-8.0) g/dL Albumin 4.5 (3.5-5.0) g/dL Lipase 32 (8-78) U/L Urine Color Yellow Urine Appearance Clear Urine pH 7.0 (5.0-9.0) Ur Specific [place] 1.010 (1.005-1.025) Urine Protein Negative (Neg-Trace) mg/dL Urine Glucose (UA) Negative (Negative) mg/dL Urine Ketones Trace (Negative) mg/dL Urine Blood Negative (Negative) Urine Nitrite Negative (Negative) Ur Leukocyte Esterase Negative (Negative) Discharge Plan Discharge Clinical Impression: Diverticulitis Patient Disposition: Home, Self-Care Instructions: Diverticulitis (ED), Diverticulitis Diet (ED) Additional Instructions: You were found to have uncomplicated diverticulitis. See home care instructions. Take the ciprofloxacin as directed, take the Flagyl as directed. Uses Zofran as needed for nausea, use the oxycodone as needed for pain. This medication can cause constipation, use concurrent Colace, this is a stool softener. Follow up with your primary care provider in a week for recheck. Prescriptions: New ciprofloxacin HCl 500 mg tablet 500 mg PO Q12H Qty: 13 0RF metronidazole 500 mg tablet 500 mg PO Q8H Qty: 20 0RF ondansetron HCl 4 mg tablet 4 mg PO Q8H PRN (Reason: nausea and vomiting) Qty: 10 0RF oxycodone 5 mg tablet 5 mg PO Q6H PRN (Reason: pain) Qty: 12 0RF Rx Instructions: Partial Fill upon patient request. No Action omeprazole 40 mg capsule,delayed release(DR/EC) 40 mg PO DAILY propranolol 20 mg tablet PO hydrochlorothiazide 12.5 mg tablet 25 mg PO DAILY albuterol sulfate 90 mcg/actuation HFA aerosol inhaler 1 inh inhalation QID PRN (Reason: shortness of breath or wheezing) Qty: 6.7 1RF levothyroxine 125 mcg tablet 125 mcg PO DAILY epinephrine 0.3 mg/0.3 mL auto-injector 1 mg IM DAILY cyclosporine [Restasis] 0.05 % dropperette ophthalmic (eye) cholestyramine (with sugar) 4 gram powder in packet 1 ea PO BID amoxicillin-pot clavulanate [Augmentin] 500-125 mg tablet 1 tab PO Q12H Qty: 20 0RF Stand Alone Forms: Work/School Release Interventions: ED Discharge Assessment Last Done: 12/27/24 21:32 Discharge Date/Time: 12/27/24 21:32 Print Language: Romanian
[2024-12-27 18:07] LABS: MANUAL DIFF FLAG NO
[2024-12-27 18:16] LABS: Basophils Percent Auto 0.3 % (0-2); Eosinophils Percent Auto 0.8 % (0-4); Hematocrit 40.4 % (37.0-47.0); Hemoglobin 13.5 g/dl (12.0-16.0); Imm Gran Pct Auto 0.4 % (0.0-0.4); Lymphocytes Percent Auto 14.6 % (20-40); Mean Corpuscular HGB Conc 33.4 g/dl (31.0-35.0); Mean Corpuscular Hemoglobin 28.8 pg (27.0-33.0); Mean Corpuscular Volume 86.1 fL (80.0-98.0); Mean Platelet Volume 10.7 fL (9.4-12.3); Neutrophils Percent Auto 77.9 % (45-73); Platelet Count 290 X10*3/uL (160-400); Red Blood Count 4.69 X10*6/uL (4.20-5.50); Red Cell Distribution Width 13.2 % (11.0-16.0); White Blood Count 13.9 X10*3/uL (4.8-10.8)
[2024-12-27 18:17] LABS: Eosinophils Absolute Auto 0.1 X10*3/uL (0.0-0.4); Imm Gran Abs Auto 0.05 X10*3/uL (0.00-0.03); Monocytes Absolute Auto 0.8 X10*3/uL (0.1-1.2); Neutrophils Absolute Auto 10.9 x10*3/uL (2.0-8.3)
[2024-12-27 18:24] LABS: Appearance Urine Clear; Color Urine Yellow; Glucose Urine UA Negative (Negative); Leukocyte Esterase Urine Negative (Negative); Nitrite Urine Negative (Negative); Urine Blood Negative (Negative); Urine Ketones Trace mg/dL (Negative); Urine Protein Negative (Neg-Trace)
[2024-12-27 18:29] LABS: Alanine Aminotransferase 68 U/L (0-31); Albumin Level 4.5 g/dL (3.5-5.0); Alkaline Phosphatase 93 U/L (39-117); Anion Gap 14 (12-20); Aspartate Amino Transferase 36 U/L (5-31); Bilirubin Total 0.6 mg/dL (0.0-1.0); Blood Urea Nitrogen 13 mg/dL (9-16); Calcium 9.6 mg/dL (8.4-10.2); Carbon Dioxide 30 mmol/L (22-29); Chloride 100 mmol/L (96-108); Creatinine Clr Calc Pharmacy 85.1; Estimated Glomerular Filt Rate > 60; Glucose Random 90 mg/dL (60-115); Lipase 32 U/L (8-78); Potassium 3.6 mmol/L (3.3-5.1); Sodium 140 mmol/L (135-145)
[2024-12-27 19:47] VITALS: RESP 16
[2024-12-27] MEDS: 0.9 % Sodium Chloride 1,000 ML 999 ML IV (19:47)
[2024-12-27] MEDS: ondansetron HCL 4 MG/2 ML VIAL IVPUSH (19:47)
[2024-12-27] MEDS: Morphine Sulfate 4 MG/ML CARTRIDGE IVPUSH (19:47)
[2024-12-27] MEDS: iohexoL 350 MG/ML 100 ML INFUS..BTL IV (19:58)
[2024-12-27 20:15] VITALS: RESP 16
[2024-12-27 21:13] VITALS: BP 130/58; PULSE 65; RESP 14; TEMP 36.8; O2SAT 96
[2024-12-27] MEDS: levoFLOXacin 750 MG TABLET PO (21:23)
[2024-12-27] MEDS: metroNIDAZOLE 500 MG TABLET PO (21:23)
[2024-12-27 21:32] VITALS: BP 130/58; PULSE 65; RESP 14; TEMP 36.8; O2SAT 96
== END 2024-12-27 21:32 | disposition home or self-care (01) ==
PROVIDERS: Physician Assistant; Emergency Provider Emergency Medicine; PCP Physician Assistant Medical
DX: K57.92 Diverticulitis of intestine, part unspecified, without perforation or abscess without bleeding (principal); I10 Essential (primary) hypertension; E03.9 Hypothyroidism, unspecified; Z79.899 Other long term (current) drug therapy
CPT/HCPCS: 36415; 74177; 80053; 81003; 83690; 85025; 96361; 96374; 96375; 99284; J2270; J2405; Q9967

== ENCOUNTER → 2024-12-27 19:38 | Outpatient (BNV) | payer OTHER, SELFPAY | PROVIDERS: Emergency Provider Emergency Medicine; PCP Physician Assistant Medical; Visit Provider Student in an Organized Health Care Education/Training Program | DX: K57.30 Diverticulosis of large intestine without perforation or abscess without bleeding (principal); K44.9 Diaphragmatic hernia without obstruction or gangrene | CPT/HCPCS: 74177 ==